=== PATIENT | female | born 1940 | race Caucasian/White ===

== ENCOUNTER 2017-04-03 09:35 | Emergency (ER) | payer MEDICARE ==
[~2017-04-03] VITALS: Ht 154.9 cm; Wt 41.3 kg
[~2017-04-03 09:35] MED LIST: ACETAMINOPHEN500 M3 PO; ADULT LOW DOSE81 MG PO; ALBUTEROL2.5 MG/NEB INH; ATENOLOL50 MG PO; CEFDINIR 300MG300 MG PO; DALIRESP500 MCG PO; DIGOXIN0.125 MG PO; DILTIAZEM HCL120 MG PO; ELIQUIS5 MG PO; GOOD NEIGHBOR600 MG PO; IPRATROPIUM BROM3 M2 IH; MELATIN1 TAB PO; PANTOPRAZOLE SO40 M1 PO; PAXIL10 MG PO; PERFOROMIS20 MCG/2 M IH; PROVENTIL0.09 MG/A1 IH; PULMICORT0.5 MG/2 M IN; ROBITUSSIN COU237 M1 PO; SENNA LAXATIVE8.6 MG PO; SPIRIVA HA1 PUFF/INH IH; VITAMIN B122500 MC1 PO; ZOFRAN4 MG PO
--- NOTE | 2017-04-03 09:52 | Emergency Room Report ---
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 EMS REPORTS THAT PT WAW IN SVT EN ROUTE TO ER AND CONVERTED TO SINUS TACH WITH VAGAL MANEUVERS Onset of symptoms date/time:04/03/17 or onset unknown for: Treatment Prior to Arrival: O2, IV, MONITOR, AND TRANSPORT. EMS REPORTS PT MONITORED IN SVT EN ROUTE TO [facility] AND CONVERTED WITH VAGAL MANEUVERS. LEASING AGENT Provided by:REGISTERED NURSE OBSTETRICS Sepsis Risk Assessment: Temp: 98.0 B/P: 140/90 MAP: 106 Pulse: 150 Resp: 24 Recent fever? N Clinical Suspician of Infection? N Mental Status: 1 - Regular (Normal Baseline) Sepsis Risk:Severe Sepsis Risk Have you (or family members/close friends) recently traveled outside the [place]? N If Yes, where/when: Have you had exposure to infectious disease within the past month? N TB? Other? Specify: Patient transferred from [place] due to elevated HR and SOB. She was discharged from this facililty 04/02/17 following treatment for pneumonia (Zithromax and cephalosporin); COPD, anemia (transfused); chronic afib (newly on Diltiazem per cardiology service, in addition to digoxin and Eliquis); cachexia; elevated troponin likely falsely positive due to COPD. She was given nebs this morning for tachypnea and transferred when noted to be tachycardic with Afib in the 170' s. She has not been given her morning dose of Diltiazem yet, but was given her Digoxin prior to transfer via EMS. During EMS transportation, she was given IVF and told to bear down/Valsalva, and she arrives with a rate in the 130's to 150' s. She is a confirmed DNR. ALLERGIES Coded Allergies: Penicillins (Mild, 03/27/17) aspirin (Mild, 03/27/17) Home Medications Active Scripts Pantoprazole Sodium 40 MG PO BID #60 TABS Ref 1 Prov: 04/02/17 DIGOXIN (Digox) 0.125 MG PO DAILY #30 TAB Ref 2 Prov: 04/02/17 CEFDINIR (Cefdinir) 300 MG PO BID #10 CAP Prov: 04/02/17 DILTIAZEM HCL (Diltiazem 12HR ER) 120 MG PO BID #60 C12 Ref 2 Prov: 04/02/17 Guaifenesin/Dextromethorphan (Robitussin Cough-Chest Dm Liq) 10 ML PO Q6HP PRN COUGH #240 ML Ref 2 Prov: 04/02/17 Reported Medications Senna Pod (Senna Laxative) 2 TAB PO QHS Tiotropium [place] (Spiriva) 2 PUFF IH DAILY Guaifenesin (Mucus ER) 600 MG PO BID Budesonide (Pulmicort) 0.5 MG IN BID Formoterol Fumarate (Perforomist) 20 MCG IH BID Acetaminophen (Acetaminophen Extra Strength) 500 MG PO PRN PRN PAIN OR FEVER Aspirin (Adult Low Dose Aspirin EC) 81 MG PO DAILY Cyanocobalamin (Vitamin B-12) (Vitamin B12) 1,000 MCG PO DAILY Roflumilast (Daliresp) 500 MCG PO DAILY Apixaban (Eliquis) 5 MG PO BID MELATONIN (Melatin) 1 TAB PO QHS PAROXETINE HCL (Paxil) 10 MG PO DAILY ALBUTEROL (Proventil Hfa Inhaler) 1-2 PUFF IH Q4-6H PRN ONDANSETRON HCL (Zofran 4MG Tab) 4 MG PO Q6HP PRN NAUSEA AND VOMITING ALBUTEROL (Albuterol 0.083% Neb) 2.5 MG INH QID Discontinued Reported Medications ATENOLOL (Atenolol 50MG) 100 MG PO DAILY IPRATROPIUM/ALBUTEROL SULFATE (Iprat-Albut 0.5-3(2.5) MG/3 Ml) 3 ML IH QIDP PRN COPD History Medical History General CAD? Yes Angina: Yes VA: Yes Hypertension? Yes Hyperlipidemia? No CHF? No DVT? No PE? No COPD? Yes Asthma? No Anemia? No GERD? No Gastric ulcers? No GI Bleed? No Hernia? No Thyroid Problems? No Hypothyroidism? No CVA? No Seizures? No Diabetes? No Renal Insuffiency? No End Stage Renal Disease? No UTI? No Stones? No BPH? No GB Disease: No Nephritic Syndrome? No Asplenia? No Hepatitis? No Sickle Cell Disease? No Arthritis? No Migraines? No Cataracts? No Glaucoma? No MRSA? No HIV? No TB? No Anxiety? Yes Depression? No Cancer? No More? No Additional hx: 1. Chronic atrial fib Immunization Hx DT/Tetanus Unknown Flu Refused Pneumonia Never Had Surgical Hx Previous Surgery?Y Cath w/Stent Family History Family Hx Diabetes No CAD Yes Hypertension Yes Hyperlipidemia No Cancer No TB No Social History Smoking Hx Smoker: Former Smoker Tobacco: No Packs/day 1 1/2 - 2 Packs Alcohol Alcohol: No Review of Systems All Other Systems Reviewed and Negative Constitutional see HPI (cachexia) Respiratory see HPI (COPD on O2;recent pneumonia) Cardiovascular see HPI, denies chest pain (hx chronic Afib; hx elev trop) Physical Exam Vital Signs Vital Signs Date Time Temp Pulse Resp B/P Pulse O2 O2 Flow FiO2 Ox Delivery Rate 04/03 1103 107 18 142/73 100 04/03 1025 96 20 154/77 100 04/03 1025 24 98 04/03 1023 97 24 157/77 98 04/03 0938 98.0 150 24 140/90 89 General Appearance normal appearance, WD/WN, mild distress Eye Exam - bilateral eye normal exam, bilateral eye PERRL, bilateral eye EOMI Neck normal inspection (trachea midline) Respiratory Status Yes: trachea midline, chest symmetrical, non tender chest. No: respiratory distress, tender on palpation, use of accessory muscles, pain on inspiration, pain on expiration, productive cough, non productive cough (somewhat tachypneic) . Lung Sounds bilateral: normal breath sounds, lungs clear, decreased breath sounds (c/w hx COPD; somewhat elev RR). Cardiovascular regular rate/rhythm, no peripheral edema, no gallop, no JVD, no murmur, no rub (irr irr Afib on monitor 150's) Peripheral Pulses Pulses normal Yes (irr irr; full) Gastrointestinal normal bowel sounds, normal exam, non tender, soft, no organomegaly, no pulsatile mass, no guarding, no rebound Extremities non-tender, normal range of motion, normal inspection, normal capillary refill, no calf tenderness, no pedal edema Strength 4 Upper Ext (L), 4 Upper Ext (R), 4 Lower Ext (L), 4 Lower Ext (R) Neurologic alert, normal exam, no motor/sensory deficits, oriented x 3 (speech clear and fluent;alert) Glascow Coma Scale Glascow Coma Scale Response Value EYE response: 4 Spontaneously 4 MOTOR response: 6 OBEYS 6 VERBAL response: 5 Oriented & Converses 5 Total 15 Skin intact, normal color, warm/dry, pallor Lymphatic no adenopathy Medical Decision Making LABS/Meds/Orders Pt receiving controlled substance in ED? No Results/Orders Laboratory Tests 04/03/17 0950: Lactic Acid 1.4 04/03/17 0950: Sodium 133 L, Potassium 3.7, Chloride 95 L, Carbon Dioxide 37 H, BUN 18, Creatinine 0.8, Estimated Creat Clear 38 L, Estimated GFR (MDRD) 69, Glucose 172 H, Calcium 9.0, Total Bilirubin 1.2 H, AST 17, ALT 26, Alkaline Phosphatase 94, Creatine Kinase 12 L, CK-MB (CK-2) Rel Index 5.8 H, CK and CKMB Interp 0.7, Troponin I 0.04, Total Protein 6.0 L, Albumin 2.8 L, Globulin 3.2, Albumin/Globulin Ratio 0.9 L, WBC 15.6 H, RBC 4.48, Hgb 13.4, Hct 42.0, MCV 93.8, RDW 15.4, Plt Count 113 L, MPV 9.5, Gran % 81.7 H, Gran # 12.8 H, Total Counted 100, Lymphocytes % 8.7 L, Monocytes % 9.3, Eosinophils % 0.1, Basophils % 0.2, Neutrophils 80 H, Band Neutrophils 2, Lymphocytes (Manual) 7 L, Lymphocytes # 1.4, Monocytes (Manual) 11 H, Monocytes # 1.5 H, Eosinophils # 0.0, Basophils # 0.0, Platelet Estimate SLIGHT DECREASE, PUBS MCHC 31.9, MCH 30.0, Digoxin 0.80 L Current Medication Orders Sig/Dylan Start time Last Medication Dose Route Stop Time Status Admin Albuterol/Ipratropium 3 ML ONCE ONE 04/03 1030 DC 04/03 INH 04/03 1031 1035 Albuterol/Ipratropium 0 .STK-MED ONE 04/03 1030 DC INH Sodium Chloride 10 ML PRN PRN 04/03 1015 AC IV 04/04 1002 Diltiazem HCl 120 MG ONCE ONE 04/03 1000 DC 04/03 PO 04/03 1001 0957 Ondansetron HCl 4 MG 04/03 1000 CAN IV Ondansetron HCl 4 MG ONCE ONE 04/03 1000 DC 04/03 IV 04/03 1001 1000 Diltiazem HCl 0 .STK-MED ONE 04/03 0954 DC PO Methylprednisolone 125 MG ONCE ONE 04/03 0945 DC 04/03 Sodium Succinate IV 04/03 0946 0955 Sodium Chloride 1,000 ML .Q1H1M 04/03 0945 DC 04/03 IV 04/03 1045 0955 Sodium Chloride 10 ML PRN PRN 04/03 945 AC IV 04/04 0938 Sodium Chloride 1,000 ML .STK-MED ONE 04/03 0944 DC IV Methylprednisolone 0 .STK-MED ONE 04/03 0943 DC Sodium Succinate .ROUTE Ondansetron HCl 0 .STK-MED ONE 04/03 09 DC .ROUTE Orders Procedure Date/time Status OP COURTSEY MEAL 04/03 1102 Active RT REQUEST DUONEB 04/03 1022 Active IV SALINE LOCK 04/03 1002 Active DIFFERENTIAL-WBC 04/03 0950 Complete 12 LEAD EKG-RADHA (INITIAL) 04/03 0940 Active ELECTROCARDIOGRAM REQUEST 04/03 0940 Active CHEST-PORTABLE 04/03 0940 Active LACTIC ACID 04/03 0940 Complete DIGOXIN 04/03 09 Complete CBC WITH AUTO DIFF 04/03 09 Complete CARDIAC ENZYMES 04/03 09 Complete CHEM 12 PROFILE 04/03 09 Complete CM/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 XRAY/CT/US XRAY/CT/US XRAY chest XR interpretation by reviewed by me Xray Results abnormal, improvement of bibasilar atelectasis seen last week Progress ED Progress Notes 1 Date 04/03/17 Time 1003 Comment HR 103-1113 on monitor; Stach and intermittently Afib. Somewhat tachypneic with scattered wheezing; responding well to AM dose of Diltiazem as well as IVF. Will administer duoneb to treat wheezing now that HR under better control. ED Progress Notes 2 Date 04/03/17 Time 1033 Comment Stach 112 s/p Diltiazem and IVF, and now receiving duoneb. ED Progress Notes 3 Date 04/03/17 Time 1129 Comment Resting comfortably, ate breakfast, stable s/p nebs and seroids, HR low 100's s/ p nebs. Departure Departure Time of Disposition 1122 Disposition DC Home or Self Care(routine) Clinical Impression Primary Impression: SOB (shortness of breath) Secondary Impressions: Atrial fibrillation with tachycardic ventricular rate, COPD exacerbation Condition STABLE Referrals Ryann Mckeon MD (PCP/Family) Patient Instructions Diltiazem Additional Instructions Initiate Diltiazem as per the developer analyst's recommendations; patient was dosed in the ED and responded well. Digoxin level was slightly low, perhaps due to dosing, but recommend recheck level at PCP's discretion. Recommend continuation of prednisone taper as tolerated with Rx Medrol written; patient may need to be premedicated with Zofran to tolerate the prednisone. Continue nebs. See Dr. Mckeon for follow up in two to five days for recheck. Discharge Counseling Counseled pt/family regarding diagnosis, test results, medications/RX, home care, follow up needs Prescriptions Current Visit Scripts Methylprednisolone (Medrol Dose Jairo) 4 MG PO UD #1 JAIRO TAKE DIRECTED ON PACKAGING Ondansetron (Zofran 4MG Odt) 4 MG PO Q6HP PRN NAUSEA AND VOMITING #6 ODT ED Critical Care Critical Care No at 1123
[2017-04-03 10:11] LABS: HEMOGLOBIN 13.4 g/dL (12.2-16.2); LYMPH # 1.4 K/mm3 (0.7-4.5); LYMPH % 8.7 % (10-50.0)
--- OUTSIDE RECORDS SUMMARY | 2017-04-03 10:25 | External Medical Summary Rpt | CCD ---
Author Author , ERON Organization ERON Address Unknown Phone [email or web address] Purpose Continuity of Care Document - 06-27-2016 through 2016 Results Labs Lab Lab Date Result Refere Interp Status Commen Order Detail nces retati t Range on CBC w auto diff (04-02-2017 06:45) Blood = 8.8 4.8-10. complet leukocy 017 K/MM3 8 ed devendra 06:45 count (number /volume ) Automat = 15.5 11.5-17 complet ed 017 % .5 ed erythro 06:45 cyte distrib ution width Red = 4.26 4.2-5.4 complet blood 017 M/mm3 ed cell 06:45 count Blood = 92 142-424 complet platele 017 K/mm3 ed t count 06:45 Automat = 9.3 7.4-10. complet ed 017 fl 4 ed blood 06:45 platele t mean volume shari [place] % = 11.1 1.7-9.3 complet 017 % ed 06:45 Absolut = 1.0 0.1-1.0 complet e 017 K/mm3 ed monocyt 06:45 e count Automat = 94.7 82.2-97 complet ed 017 fl .8 ed erythro 06:45 cyte mean corpusc ular v Automat = 31.4 31.8-35 complet ed 017 g/dl .4 ed erythro 06:45 cyte mean corpusc ular h Mean = 29.8 27-31.2 complet corpusc 017 pg ed ular 06:45 hemoglo bin (MCH) determ Lymphoc = 10.8 10-50.0 complet yte 017 % ed count, 06:45 blood, automat ed Absolut = 1.0 0.7-4.5 complet e 017 K/mm3 ed lymphoc 06:45 yte count Blood = 12.8 12.2-16 complet hemoglo 017 g/dL .2 ed bin 06:45 measure ment (mass/v olum Blood = 40.3 37.0-47 complet hematoc 017 % .0 ed rit 06:45 (volume fractio n) Granulo = 77.4 37.0-80 complet cyte 017 % .0 ed percent 06:45 age Blood = 6.8 1.8-7.8 complet granulo 017 K/mm3 ed cytes 06:45 automat ed count (numb Automat = 0.5 % 0.1-12. complet ed 017 0 ed blood 06:45 eosinop hils/10 0 leukocy t Automat = 0.0 0.0-0.4 complet ed 017 K/mm3 ed blood 06:45 eosinop hil count Automat = 0.0 0-0.2 complet ed 017 K/MM3 ed blood 06:45 basophi l count (count/ vo Baso % = 0.2 % 0.1-2.0 complet 017 ed 06:45 Differential panel, method unspecified - (03-31-2017 06:20) Blood = 100 complet total 017 #CELLS ed cell 06:20 count Neutrop = 82 % 42-76 complet hil 017 ed count 06:20 Platele SLIGHT complet t 017 DECREAS ed estimat 06:20 E e SLIGHT DECREAS E L Monocyt = 10 % 2-9 complet e % 017 ed 06:20 LYMPH 5 % 10-50 complet 017 ed 06:20 Automat = 3 % 0-8 complet ed 017 ed blood 06:20 band neutrop hil percent a CBC w auto diff (03-31-2017 06:20) Automat = 15.8 11.5-17 complet ed 017 % .5 ed erythro 06:20 cyte distrib ution width Blood = 16.0 4.8-10. complet leukocy 017 K/MM3 8 ed devendra 06:20 count (number /volume ) Red = 4.75 4.2-5.4 complet blood 017 M/mm3 ed cell 06:20 count Blood = 132 142-424 complet platele 017 K/mm3 ed t count 06:20 Automat = 9.4 7.4-10. complet ed 017 fl 4 ed blood 06:20 platele t mean volume shari [place] % = 7.3 % 1.7-9.3 complet 017 ed 06:20 Absolut = 1.2 0.1-1.0 complet e 017 K/mm3 ed monocyt 06:20 e count Automat = 94.3 82.2-97 complet ed 017 fl .8 ed erythro 06:20 cyte mean corpusc ular v Automat = 32.5 31.8-35 complet ed 017 g/dl .4 ed erythro 06:20 cyte mean corpusc ular h Mean = 30.6 27-31.2 complet corpusc 017 pg ed ular 06:20 hemoglo bin (MCH) determ Lymphoc = 6.9 % 10-50.0 complet yte 017 ed count, 06:20 blood, automat ed Absolut = 1.1 0.7-4.5 complet e 017 K/mm3 ed lymphoc 06:20 yte count Blood = 14.5 12.2-16 complet hemoglo 017 g/dL .2 ed bin 06:20 measure ment (mass/v olum Blood = 44.8 37.0-47 complet hematoc 017 % .0 ed rit 06:20 (volume fractio n) Granulo = 85.3 37.0-80 complet cyte 017 % .0 ed percent 06:20 age Blood = 13.6 1.8-7.8 complet granulo 017 K/mm3 ed cytes 06:20 automat ed count (numb Automat = 0.4 % 0.1-12. complet ed 017 0 ed blood 06:20 eosinop hils/10 0 leukocy t Automat = 0.1 0.0-0.4 complet ed 017 K/mm3 ed blood 06:20 eosinop hil count Baso % = 0.1 % 0.1-2.0 complet 017 ed 06:20 Automat = 0.0 0-0.2 complet ed 017 K/MM3 ed blood 06:20 basophi l count (count/ vo Comprehensive metabolic panel (03-31-2017 06:20) Protein = 6.7 6.4-8.2 complet total 017 gm/dL ed ser/husam 06:20 s ALT = 26 12-78 complet (SGPT) 017 U/L ed ser/husam 06:20 s Serum = 18 15-37 complet or 017 U/L ed plasma 06:20 asparta te aminotr ansfera Serum = 137 136-145 complet sodium 017 mmoL/L ed measure 06:20 ment Serum = 4.6 3.5-5.1 complet potassi 017 mmoL/L ed um 06:20 measure ment Serum = 126 74-106 complet or 017 mg/dL ed plasma 06:20 glucose measure ment (mas Serum = 3.4 1.3-3.2 complet globuli 017 gm/dL ed n 06:20 measure ment (mass/v olume) Estimat = 69 59- complet ed 017 ML/MIN ed glomeru 06:20 lar filtrat ion rate (GF Comment: REFERENCE RANGE: >60 ML/MIN/1.73 SQUARE METERS Comment: If this patient is -Cymro, then multiply the Comment: result by 1.210. Estimat = 40 50-200 complet ion of 017 ML/MIN ed creatin 06:20 ine renal clearan ce Serum = 0.8 0.55-1. complet or 017 mg/dL 02 ed plasma 06:20 creatin ine measure ment ( Carbon = 39 21.0-32 complet dioxide 017 mmoL/L .0 ed 06:20 measure ment Serum = 94 98-107 complet or 017 mmoL/L ed plasma 06:20 chlorid e measure ment (mo Serum = 9.6 8.5-10. complet or 017 mg/dL 1 ed plasma 06:20 calcium measure ment (mas Serum = 23 7-18 complet or 017 mg/dL ed plasma 06:20 urea nitroge n measure men Serum = 1.2 0.2-1.0 complet or 017 mg/dL ed plasma 06:20 total bilirub in measure m Serum = 113 46-116 complet or 017 U/L ed plasma 06:20 alkalin e phospha tase shari Serum = 3.3 3.4-5.0 complet or 017 gm/dL ed plasma 06:20 albumin measure ment (mas Serum = 1.0 1.1-1.8 complet or 017 ed plasma 06:20 albumin /globul in mass ra Cardiac enzymes (03-30-2017 06:03) Serum = 0.11 0.00-0. complet or 017 ng/mL 06 ed plasma 06:03 troponi n i.cardi ac measu Comment: 0.04 - 0.49 IS AN INDETERMINANT ZONE Comment: And can be consistent with the following diseases: Comment: Comment: Trauma Critically ill patients Fuentes >30% TBSA Comment: CHF Hypothyroidism Amyloidosis Comment: Hypertension Myocarditis Sepsis Comment: Hypotension Rhabdomyolysis Vital exhaust. Comment: Postop surgery Pulmonary embolism CVA Comment: Renal failure Acute neurological disease Atrial fib. Serum = 31 26-192 complet or 017 U/L ed plasma 06:03 creatin e kinase measure m Serum = 3.2 0.0-3.6 complet or 017 ng/mL ed plasma 06:03 creatin e kinase MB measu Serum = 10.3 0-4.0 complet or 017 U/L ed plasma 06:03 creatin e kinase MB (CK-M Basic metabolic panel (03-30-2017 06:03) Serum 03-30-2 = 9.3 8.5-10. complet or 017 mg/dL 1 ed plasma 06:03 calcium measure ment (mas Serum = 135 136-145 complet sodium 017 mmoL/L ed measure 06:03 ment Serum = 4.4 3.5-5.1 complet potassi 017 mmoL/L ed um 06:03 measure ment Serum = 130 74-106 complet or 017 mg/dL ed plasma 06:03 glucose measure ment (mas Estimat = 69 59- complet ed 017 ML/MIN ed glomeru 06:03 lar filtrat ion rate (GF Comment: REFERENCE RANGE: >60 ML/MIN/1.73 SQUARE METERS Comment: If this patient is -Cymro, then multiply the Comment: result by 1.210. Estimat = 40 50-200 complet ion of 017 ML/MIN ed creatin 06:03 ine renal clearan ce Serum = 0.8 0.55-1. complet or 017 mg/dL 02 ed plasma 06:03 creatin ine measure ment ( Carbon = 34 21.0-32 complet dioxide 017 mmoL/L .0 ed 06:03 measure ment Serum = 99 98-107 complet or 017 mmoL/L ed plasma 06:03 chlorid e measure ment (mo Serum = 27 7-18 complet or 017 mg/dL ed plasma 06:03 urea nitroge n measure men Differential panel, method unspecified - (03-30-2017 06:03) Blood = 100 complet total 017 #CELLS ed cell 06:03 count Neutrop = 85 % 42-76 complet hil 017 ed count 06:03 Platele SLIGHT complet t 017 DECREAS ed estimat 06:03 E e SLIGHT DECREAS E L Monocyt = 8 % 2-9 complet e % 017 ed 06:03 LYMPH 6 % 10-50 complet 017 ed 06:03 Blood LARGE complet manual 017 PLT ed differe 06:03 PRESENT ntial comment interp Automat = 1 % 0-8 complet ed 017 ed blood 06:03 band neutrop hil percent a CBC w auto diff (03-30-2017 06:03) Blood = 17.8 4.8-10. complet leukocy 017 K/MM3 8 ed devendra 06:03 count (number /volume ) Automat = 16.2 11.5-17 complet ed 017 % .5 ed erythro 06:03 cyte distrib ution width Red = 4.01 4.2-5.4 complet blood 017 M/mm3 ed cell 06:03 count Blood = 113 142-424 complet platele 017 K/mm3 ed t count 06:03 Automat = 10.1 7.4-10. complet ed 017 fl 4 ed blood 06:03 platele t mean volume shari [place] % = 6.9 % 1.7-9.3 complet 017 ed 06:03 Absolut = 1.2 0.1-1.0 complet e 017 K/mm3 ed monocyt 06:03 e count Automat = 94.8 82.2-97 complet ed 017 fl .8 ed erythro 06:03 cyte mean corpusc ular v Automat = 31.8 31.8-35 complet ed 017 g/dl .4 ed erythro 06:03 cyte mean corpusc ular h Mean = 30.1 27-31.2 complet corpusc 017 pg ed ular 06:03 hemoglo bin (MCH) determ Lymphoc = 5.5 % 10-50.0 complet yte 017 ed count, 06:03 blood, automat ed Absolut = 1.0 0.7-4.5 complet e 017 K/mm3 ed lymphoc 06:03 yte count Blood = 12.1 12.2-16 complet hemoglo 017 g/dL .2 ed bin 06:03 measure ment (mass/v olum Blood = 38.0 37.0-47 complet hematoc 017 % .0 ed rit 06:03 (volume fractio n) Granulo = 87.2 37.0-80 complet cyte 017 % .0 ed percent 06:03 age Blood = 15.6 1.8-7.8 complet granulo 017 K/mm3 ed cytes 06:03 automat ed count (numb Automat = 0.2 % 0.1-12. complet ed 017 0 ed blood 06:03 eosinop hils/10 0 leukocy t Automat = 0.0 0.0-0.4 complet ed 017 K/mm3 ed blood 06:03 eosinop hil count Baso % = 0.0 % 0.1-2.0 complet 017 ed 06:03 Automat = 0.0 0-0.2 complet ed 017 K/MM3 ed blood 06:03 basophi l count (count/ vo Whole blood hemoglobin and hematocrit pa (03-28-2017 16:30) Comment: COMMENTS TO MATERIAL ATTENDANT: 1 HR POST TRANSFUSION Blood = 11.3 12.2-16 complet hemoglo 017 g/dL .2 ed bin 16:30 measure ment (mass/v olum Blood = 35.4 37.0-47 complet hematoc 017 % .0 ed rit 16:30 (volume fractio n) Leukocyte reduction of packed red blood (03-28-2017 14:00) Leukocy BLOOD complet te 017 UNIT ed reducti 14:00 RELEASE on of BLOOD packed UNIT red RELEASE blood L Comment: BLOOD UNIT # : [id number] RELEASED 03/28/17 1400 Comment: Khurram Guy Comment: Comment: O POSITIVE Leukocyte reduction of packed red blood (03-28-2017 11:20) Leukocy BLOOD complet te 017 UNIT ed reducti 11:20 RELEASE on of BLOOD packed UNIT red RELEASE blood L Comment: Comment: BLOOD UNIT # : [id number] RELEASED 03/28/17 Comment: [employer] Comment: O POS CBC w auto diff (03-28-2017 05:45) Automat = 11.1 7.4-10. complet ed 017 fl 4 ed blood 05:45 platele t mean volume shari [place] % = 7.3 % 1.7-9.3 complet 017 ed 05:45 Absolut = 0.8 0.1-1.0 complet e 017 K/mm3 ed monocyt 05:45 e count Automat = 94.9 82.2-97 complet ed 017 fl .8 ed erythro 05:45 cyte mean corpusc ular v Automat = 30.8 31.8-35 complet ed 017 g/dl .4 ed erythro 05:45 cyte mean corpusc ular h Mean = 29.2 27-31.2 complet corpusc 017 pg ed ular 05:45 hemoglo bin (MCH) determ Lymphoc = 12.1 10-50.0 complet yte 017 % ed count, 05:45 blood, automat ed Absolut = 1.3 0.7-4.5 complet e 017 K/mm3 ed lymphoc 05:45 yte count Blood = 7.9 12.2-16 complet hemoglo 017 g/dL .2 ed bin 05:45 measure ment (mass/v olum Comment: CRITICAL RESULTS Comment: RESULTS CALLED TO: PRISCAWilliamsJONYPRETTY 03/28/17 0627 [employer] Blood = 25.7 37.0-47 complet hematoc 017 % .0 ed rit 05:45 (volume fractio n) Granulo = 80.3 37.0-80 complet cyte 017 % .0 ed percent 05:45 age Blood = 8.9 1.8-7.8 complet granulo 017 K/mm3 ed cytes 05:45 automat ed count (numb Automat = 0.2 % 0.1-12. complet ed 017 0 ed blood 05:45 eosinop hils/10 0 leukocy t Automat = 0.0 0.0-0.4 complet ed 017 K/mm3 ed blood 05:45 eosinop hil count Baso % = 0.1 % 0.1-2.0 complet 017 ed 05:45 Automat = 0.0 0-0.2 complet ed 017 K/MM3 ed blood 05:45 basophi l count (count/ vo Blood = 11.1 4.8-10. complet leukocy 017 K/MM3 8 ed devendra 05:45 count (number /volume ) Automat = 17.0 11.5-17 complet ed 017 % .5 ed erythro 05:45 cyte distrib ution width Red = 2.71 4.2-5.4 complet blood 017 M/mm3 ed cell 05:45 count Blood = 80 142-424 complet platele 017 K/mm3 ed t count 05:45 Basic metabolic panel (03-28-2017 05:45) Serum = 136 136-145 complet sodium 017 mmoL/L ed measure 05:45 ment Serum = 4.4 3.5-5.1 complet potassi 017 mmoL/L ed um 05:45 measure ment Serum = 176 74-106 complet or 017 mg/dL ed plasma 05:45 glucose measure ment (mas Estimat = 81 59- complet ed 017 ML/MIN ed glomeru 05:45 lar filtrat ion rate (GF Comment: REFERENCE RANGE: >60 ML/MIN/1.73 SQUARE METERS Comment: If this patient is -Cymro, then multiply the Comment: result by 1.210. Estimat = 46 50-200 complet ion of 017 ML/MIN ed creatin 05:45 ine renal clearan ce Serum = 0.7 0.55-1. complet or 017 mg/dL 02 ed plasma 05:45 creatin ine measure ment ( Carbon = 31 21.0-32 complet dioxide 017 mmoL/L .0 ed 05:45 measure ment Serum = 101 98-107 complet or 017 mmoL/L ed plasma 05:45 chlorid e measure ment (mo Serum = 9.0 8.5-10. complet or 017 mg/dL 1 ed plasma 05:45 calcium measure ment (mas Serum = 26 7-18 complet or 017 mg/dL ed plasma 05:45 urea nitroge n measure men Cardiac enzymes (03-27-2017 11:00) Serum = 0.41 0.00-0. complet or 017 ng/mL 06 ed plasma 11:00 troponi n i.cardi ac measu Comment: 0.04 - 0.49 IS AN INDETERMINANT ZONE Comment: And can be consistent with the following diseases: Comment: Comment: Trauma Critically ill patients Fuentes >30% TBSA Comment: CHF Hypothyroidism Amyloidosis Comment: Hypertension Myocarditis Sepsis Comment: Hypotension Rhabdomyolysis Vital exhaust. Comment: Postop surgery Pulmonary embolism CVA Comment: Renal failure Acute neurological disease Atrial fib. Serum 10-13-2 = 29 26-192 complet or 017 U/L ed plasma 11:00 creatin e kinase measure m Serum 10--2 = 2.0 0.0-3.6 complet or 017 ng/mL ed plasma 11:00 creatin e kinase MB measu Serum 10-2 = 6.9 0-4.0 complet or 017 U/L ed plasma 11:00 creatin e kinase MB (CK-M Serum or plasma thyroid stimulating horm (03-27-2017 09:10) Serum 10-13-2 = 0.90 0.358-3 complet or 017 uIU/ml .740 ed plasma 09:10 thyroid stimula ting horm Vitamin B12 ser/plas (03-27-2017 09:10) Vitamin 10--2 = 364 211-946 complet B12 017 pg/mL ed ser/husam 09:10 s Comment: Performed at: [facility] Comment: [id number], [place] [id number] Comment: Order Dispatcher: Shahriar Mena PhD, Phone: [phone] Cardiac enzymes (03-27-2017 07:55) Serum 10-2 = 0.12 0.00-0. complet or 017 ng/mL 06 ed plasma 07:55 troponi n i.cardi ac measu Comment: 0.04 - 0.49 IS AN INDETERMINANT ZONE Comment: And can be consistent with the following diseases: Comment: Comment: Trauma Critically ill patients Fuentes >30% TBSA Comment: CHF Hypothyroidism Amyloidosis Comment: Hypertension Myocarditis Sepsis Comment: Hypotension Rhabdomyolysis Vital exhaust. Comment: Postop surgery Pulmonary embolism CVA Comment: Renal failure Acute neurological disease Atrial fib. Serum 10-13-2 = 15 26-192 complet or 017 U/L ed plasma 07:55 creatin e kinase measure m Serum 10-2 = 1.1 0.0-3.6 complet or 017 ng/mL ed plasma 07:55 creatin e kinase MB measu Serum 03-27-2 = 7.3 0-4.0 complet or 017 U/L ed plasma 07:55 creatin e kinase MB (CK-M Crossmatch (03-27-2017 05:35) Comment: Hold? N Comment: Transfuse now? 2 UNITS NOW [employer] COMPAT complet te spin 017 COMPAT ed 05:35 L crossma tch Interpr COMPAT complet etation 017 COMPAT ed of 05:35 L major crossma tch resul Blood type and crossmatch (03-27-2017 05:35) Blood O O L complet ABO 017 ed group 05:35 typing Rh POSITIV complet blood 017 E ed group 05:35 POSITIV typing E L Materna NEGATIV NEGATIV complet l 017 E E ed antibod 05:35 NEGATIV y E L screen Blood lactic acid measurement (moles/vol (03-27-2017 03:41) Blood = 1.6 0.4-2.0 complet lactic 017 mmol/L ed acid 03:41 measure ment (moles/ vol Arterial blood gas (03-27-2017 03:25) Arteria = 6.6 -2.4-+2 complet l blood 017 MMOL/L .3 ed base 03:25 excess determi nation Arteria = 31.3 23-27 complet l blood 017 MMOL/L ed carbon 03:25 dioxide , total shari Arteria = 98.2 90-100 complet l blood 017 % ed oxygen 03:25 saturat ion calcula Arteria = 112.7 80-100 complet l whole 017 MMHG ed blood 03:25 PO2 at POC Arteria = 7.49 7.35-7. complet l blood 017 MMOL/L 45 ed pH 03:25 measure ment Arteria = 40.7 35.0-45 complet l blood 017 MMHG .0 ed 03:25 partial pressur e of carbo Arteria = 32% complet l blood 017 ed total 03:25 oxygen content oneyda Arteria = 30.0 22.0-26 complet l blood 017 MMOL/L .0 ed 03:25 bicarbo flor measure ment ( Chidi's ACCEPTA complet test 017 BLE ed before 03:25 ACCEPTA arteria BLE L l blood gas Comprehensive metabolic panel (03-27-2017 03:00) ALT = 10 12-78 complet (SGPT) 017 U/L ed ser/husam 03:00 s Serum = 11 15-37 complet or 017 U/L ed plasma 03:00 asparta te aminotr ansfera Serum = 134 136-145 complet sodium 017 mmoL/L ed measure 03:00 ment Serum = 3.4 3.5-5.1 complet potassi 017 mmoL/L ed um 03:00 measure ment Serum = 140 74-106 complet or 017 mg/dL ed plasma 03:00 glucose measure ment (mas Serum = 3.3 1.3-3.2 complet globuli 017 gm/dL ed n 03:00 measure ment (mass/v olume) Estimat = 77 59- complet ed 017 ML/MIN ed glomeru 03:00 lar filtrat ion rate (GF Comment: REFERENCE RANGE: >60 ML/MIN/1.73 SQUARE METERS Comment: If this patient is -Cymro, then multiply the Comment: result by 1.210. Estimat = 31 50-200 complet ion of 017 ML/MIN ed creatin 03:00 ine renal clearan ce Serum = 0.7 0.55-1. complet or 017 mg/dL 02 ed plasma 03:00 creatin ine measure ment ( Carbon = 32 21.0-32 complet dioxide 017 mmoL/L .0 ed 03:00 measure ment Serum = 97 98-107 complet or 017 mmoL/L ed plasma 03:00 chlorid e measure ment (mo Serum = 9.0 8.5-10. complet or 017 mg/dL 1 ed plasma 03:00 calcium measure ment (mas Serum = 15 7-18 complet or 017 mg/dL ed plasma 03:00 urea nitroge n measure men Serum = 0.9 0.2-1.0 complet or 017 mg/dL ed plasma 03:00 total bilirub in measure m Serum = 79 46-116 complet or 017 U/L ed plasma 03:00 alkalin e phospha tase shari Serum = 2.9 3.4-5.0 complet or 017 gm/dL ed plasma 03:00 albumin measure ment (mas Serum = 0.9 1.1-1.8 complet or 017 ed plasma 03:00 albumin /globul in mass ra Protein = 6.2 6.4-8.2 complet total 017 gm/dL ed ser/husam 03:00 s CBC w auto diff (03-27-2017 03:00) Automat = 0.0 0.0-0.4 complet ed 017 K/mm3 ed blood 03:00 eosinop hil count Automat = 0.1 0-0.2 complet ed 017 K/MM3 ed blood 03:00 basophi l count (count/ vo Blood = 9.1 4.8-10. complet leukocy 017 K/MM3 8 ed devendra 03:00 count (number /volume ) Automat = 16.5 11.5-17 complet ed 017 % .5 ed erythro 03:00 cyte distrib ution width Red = 2.94 4.2-5.4 complet blood 017 M/mm3 ed cell 03:00 count Blood = 93 142-424 complet platele 017 K/mm3 ed t count 03:00 Automat = 10.6 7.4-10. complet ed 017 fl 4 ed blood 03:00 platele t mean volume shari [place] % = 14.2 1.7-9.3 complet 017 % ed 03:00 Absolut = 1.3 0.1-1.0 complet e 017 K/mm3 ed monocyt 03:00 e count Automat = 92.1 82.2-97 complet ed 017 fl .8 ed erythro 03:00 cyte mean corpusc ular v Automat = 31.9 31.8-35 complet ed 017 g/dl .4 ed erythro 03:00 cyte mean corpusc ular h Mean = 29.4 27-31.2 complet corpusc 017 pg ed ular 03:00 hemoglo bin (MCH) determ Lymphoc = 21.9 10-50.0 complet yte 017 % ed count, 03:00 blood, automat ed Absolut = 2.0 0.7-4.5 complet e 017 K/mm3 ed lymphoc 03:00 yte count Blood = 8.6 12.2-16 complet hemoglo 017 g/dL .2 ed bin 03:00 measure ment (mass/v olum Blood = 27.0 37.0-47 complet hematoc 017 % .0 ed rit 03:00 (volume fractio n) Granulo = 63.0 37.0-80 complet cyte 017 % .0 ed percent 03:00 age Blood = 5.7 1.8-7.8 complet granulo 017 K/mm3 ed cytes 03:00 automat ed count (numb Automat = 0.2 % 0.1-12. complet ed 017 0 ed blood 03:00 eosinop hils/10 0 leukocy t Baso % = 0.7 % 0.1-2.0 complet 017 ed 03:00 Cardiac enzymes (03-27-2017 03:00) Serum < 0.02 0.00-0. complet or 017 ng/mL 06 ed plasma 03:00 troponi n i.cardi ac measu Serum = 14 26-192 complet or 017 U/L ed plasma 03:00 creatin e kinase measure m Serum = 0.6 0.0-3.6 complet or 017 ng/mL ed plasma 03:00 creatin e kinase MB measu Serum = 4.3 0-4.0 complet or 017 U/L ed plasma 03:00 creatin e kinase MB (CK-M Brain natriuretic peptide (03-27-2017 03:00) Brain = 289 0-100 complet natriur 017 pg/mL ed etic 03:00 peptide Bas Metab 2000 Pnl SerPl (09-07-2016 05:42) Anion 8.0 3.0-11. complet Gap3 017 mmol/L 0 ed SerPl-s 05:42 Cnc BUN/Cre 36.7 7.0-25. complet at 017 0 ed SerPl 05:42 GFR/BSA 97 >60 complet .pred 017 mL/min/ ed SerPl 05:42 1.73 MDRD-Ar VRat Calcium 9.5 8.7-10. complet 017 mg/dL 4 ed XXX-sCn 05:42 c CO2 32.0 20.0-31 complet SerPl-s 017 mmol/L .0 ed Cnc 05:42 Chlorid 92 99-109 complet e 017 mmol/L ed SerPl-s 05:42 Cnc Potassi 4.0 3.5-5.5 complet um 017 mmol/L ed Bld-sCn 05:42 c Sodium 132 132-146 complet Bld-sCn 017 mmol/L ed c 05:42 Creat 0.60 0.60-1. complet Bld-mCn 017 mg/dL 30 ed c 05:42 BUN 22 9-23 complet Bld-mCn 017 mg/dL ed c 05:42 Glucose 110 70-100 complet 017 mg/dL ed Bld-mCn 05:42 c Bas Metab 2000 Pnl SerPl (09-05-2016 05:07) Anion 7.0 3.0-11. complet Gap3 017 mmol/L 0 ed SerPl-s 05:07 Cnc BUN/Cre 30.0 7.0-25. complet at 017 0 ed SerPl 05:07 GFR/BSA 70 >60 complet .pred 017 mL/min/ ed SerPl 05:07 1.73 MDRD-Ar VRat Calcium 8.7 8.7-10. complet 017 mg/dL 4 ed XXX-sCn 05:07 c CO2 33.0 20.0-31 complet SerPl-s 017 mmol/L .0 ed Cnc 05:07 Chlorid 90 99-109 complet e 017 mmol/L ed SerPl-s 05:07 Cnc Potassi 3.8 3.5-5.5 complet um 017 mmol/L ed Bld-sCn 05:07 c Sodium 130 132-146 complet Bld-sCn 017 mmol/L ed c 05:07 Creat 2 0.80 0.60-1. complet Bld-mCn 017 mg/dL 30 ed c 05:07 BUN 2 24 9-23 complet Bld-mCn 017 mg/dL ed c 05:07 Glucose 151 70-100 complet 017 mg/dL ed Bld-mCn 05:07 c TSH SerPl (09-05-2016 05:07) TSH 0.431 0.350-5 complet SerPl 017 mIU/mL .350 ed DL<=0.0 05:07 5 mIU/L-a Cnc Mg Ionized SerPl-mCnc (09-05-2016 01:38) Magnesi 1.7 1.3-2.7 complet um 017 mg/dL ed SerPl-m 01:38 Cnc Troponin T SerPl Ql (09-04-2016 23:18) Troponi 0.04 0.00-0. complet n I 017 ng/mL 07 ed SerPl-m 23:18 Cnc Gas Pnl BldA (09-04-2016 21:25) Horowit 100 % complet z index 017 ed 21:25 Bld+IhG -Rto CO2 32.6 22-33 complet BldA-sC 017 ed nc 21:25 COHgb 09-04-2 0.7 % 0-2 complet MFr Bld 017 ed 21:25 MetHgb 09-04-2 0.7 % 0-1.5 complet Bld Ql 017 ed 21:25 OxyHgb 09-04-2 98.8 % 94-99 complet MFr 017 ed BldV 21:25 Hct VFr 09-04-2 38.9 % complet Bld 017 ed 21:25 Hgb 09-04-2 12.7 14-18 complet BldA-mC 017 g/dL ed nc 21:25 SaO2 % 09-04-2 98.8 % complet BldCoA 017 ed 21:25 Base 09-04-2 6.7 0.0-2.0 complet excess 017 mmol/L ed BldA 21:25 Calc-sC nc HCO3 31.2 20.0-26 complet BldA-sC 017 mmol/L .0 ed nc 21:25 pO2 282.0 83.0-10 complet BldA 017 mm Hg 8.0 ed 21:25 pCO2 44.3 mm 35.0-45 complet BldA 017 Hg .0 ed 21:25 pH BldA 7.456 7.350-7 complet 017 pH .450 ed 21:25 units Arteria [id number] complet l 017 09 Not ed patency 21:25 applica Wrist ble SCT a Bdy Arteria complet site 017 l: ed 21:25 right brachia l Haem influ B Ag XXX Ql (09-04-2016 21:24) FLUBV [id number] Negativ complet Ag Nph 017 09 e ed Ql EIA 21:24 Negativ e SCT FLUAV [id number] Negativ complet Ag Nph 017 09 e ed Ql 21:24 Negativ e SCT Bacteria Bld Cult (09-04-2016 21:22) Bacteri No complet a XXX 017 growth ed Aerobe 21:22 at 5 Cult days Lactate SerPl-sCnc (09-04-2016 21:22) D-Lacta 1.3 0.5-2.0 complet te 017 mmol/L ed SerPl-s 21:22 Cnc Troponin T SerPl Ql (09-04-2016 21:13) Troponi 0.02 0.00-0. complet n I 017 ng/mL 07 ed SerPl-m 21:13 Cnc aPTT PPP (09-04-2016 21:06) aPTT 38.2 24.0-31 complet PPP 017 seconds .0 ed 21:06 PT PPP (09-04-2016 21:06) INR PPP 1.52 complet 017 ed 21:06 PT PPP 16.8 9.6-11. complet 017 Seconds 5 ed 21:06 CBC W Diff pnl,unspecified Bld (09-04-2016 21:06) Imm 0.02 0.00-0. complet Granulo 017 10*3/mm 03 ed cytes # 21:06 3 Bld Basophi 03-23-2 0.01 0.00-0. complet ls # 017 10*3/mm 20 ed Bld 21:06 3 Auto Eosinop 03-23-2 0.00 0.10-0. complet hil # 017 10*3/mm 30 ed Bld 21:06 3 Auto Monocyt 03-23-2 1.32 0.00-1. complet es # 017 10*3/mm 00 ed Bld 21:06 3 Auto Lymphoc 03-23-2 0.33 0.60-4. complet ytes # 017 10*3/mm 80 ed Bld 21:06 3 Auto Neutrop 03-23-2 7.20 1.50-8. complet hils # 017 10*3/mm 30 ed Bld 21:06 3 Auto Imm 03-23-2 0.2 % 0.0-0.6 complet Granulo 017 ed cytes 21:06 NFr Bld Basophi 03-23-2 0.1 % 0.0-1.0 complet ls NFr 017 ed Bld 21:06 Auto Eosinop 03-23-2 0.0 % 0.0-3.0 complet hil NFr 017 ed Bld 21:06 Auto Monocyt 03-23-2 14.9 % 0.0-12. complet es NFr 017 0 ed Bld 21:06 Auto Lymphoc 03-23-2 3.7 % 24.0-44 complet ytes 017 .0 ed NFr Bld 21:06 Auto Neutrop 03-23-2 81.1 % 41.0-71 complet hils 017 .0 ed NFr Bld 21:06 Auto Platele 03-23-2 186 150-450 complet t # Bld 017 10*3/mm ed Auto 21:06 3 PMV Bld 03-23-2 10.5 fL 6.0-12. complet Auto 017 0 ed 21:06 RDW RBC 03-23-2 45.0 fl 37.0-54 complet Auto 017 .0 ed 21:06 RDW RBC 03-23-2 12.9 % 11.3-14 complet 017 .5 ed Auto-Rt 21:06 o MCHC -23-2 32.7 32.0-36 complet RBC 017 g/dL .0 ed Auto-mC 21:06 nc MCH RBC 30.9 pg 27.0-31 complet Qn 017 .0 ed Auto 21:06 MCV RBC 94.4 fL 80.0-99 complet Auto 017 .0 ed 21:06 Hct VFr 38.8 % 34.5-44 complet Bld 017 .0 ed Auto 21:06 Hgb 12.7 11.5-15 complet Bld-mCn 017 g/dL .5 ed c 21:06 RBC # 09-04- 4.11 3.89-5. complet Bld 017 10*6/mm 14 ed Auto 21:06 3 WBC 09-04- 8.88 3.50-10 complet nRBC 017 10*3/mm .80 ed cor # 21:06 3 Bld Digoxin>12h p dose SerPl-[facility] (09-04-2016 21:06) Digoxin < 0.01 0.80-2. complet 017 ng/mL 00 ed SerPl-m 21:06 Cnc Comp Metab 1997 Pnl SerPl (09-04-2016 21:06) Anion 13.0 3.0-11. complet Gap3 017 mmol/L 0 ed SerPl-s 21:06 Cnc BUN/Cre 27.5 7.0-25. complet at 017 0 ed SerPl 21:06 Albumin 1.3 1.5-2.5 complet /Glob 017 g/dL ed SerPl 21:06 Globuli 3.0 complet n Ur 017 gm/dL ed Elph-mC 21:06 nc GFR/BSA 70 >60 complet .pred 017 mL/min/ ed SerPl 21:06 1.73 MDRD-Ar VRat Bilirub 09-04-2 0.4 0.3-1.2 complet 017 mg/dL ed SerPl-m 21:06 Cnc ALP 60 U/L 25-100 complet SerPl-c 017 ed Cnc 21:06 AST 42 U/L 0-33 complet SerPl-c 017 ed Cnc 21:06 ALT 09-04-2 28 U/L 7-40 complet SerPl w 017 ed 21:06 P-5'-P- cCnc Albumin 3.90 3.20-4. complet 017 g/dL 80 ed SerPl-m 21:06 Cnc Prot 6.9 5.7-8.2 complet SerPl-m 017 g/dL ed Cnc 21:06 Calcium 9.6 8.7-10. complet 017 mg/dL 4 ed XXX-sCn 21:06 c CO2 28.0 20.0-31 complet SerPl-s 017 mmol/L .0 ed Cnc 21:06 Chlorid 85 99-109 complet e 017 mmol/L ed SerPl-s 21:06 Cnc Potassi 3.9 3.5-5.5 complet um 017 mmol/L ed Bld-sCn 21:06 c Sodium 126 132-146 complet Bld-sCn 017 mmol/L ed c 21:06 Creat 0.80 0.60-1. complet Bld-mCn 017 mg/dL 30 ed c 21:06 BUN 22 9-23 complet Bld-mCn 017 mg/dL ed c 21:06 Glucose 104 70-100 complet 017 mg/dL ed Bld-mCn 21:06 c BNP SerPl-[facility] (09-04-2016 21:06) BNP 285.0 0.0-100 complet SerPl-m 017 pg/mL .0 ed Cnc 21:06 Bas Metab 2000 Pnl SerPl (07-02-2016 12:56) Anion 7.0 3.0-11. complet Gap3 017 mmol/L 0 ed SerPl-s 12:56 Cnc BUN/Cre 33.3 7.0-25. complet at 017 0 ed SerPl 12:56 GFR/BSA 61 >60 complet .pred 017 mL/min/ ed SerPl 12:56 1.73 MDRD-Ar VRat Calcium 10.5 8.7-10. complet 017 mg/dL 4 ed XXX-sCn 12:56 c CO2 41.0 20.0-31 complet SerPl-s 017 mmol/L .0 ed Cnc 12:56 Chlorid 94 99-109 complet e 017 mmol/L ed SerPl-s 12:56 Cnc Potassi 3.8 3.5-5.5 complet um 017 mmol/L ed Bld-sCn 12:56 c Sodium 142 132-146 complet Bld-sCn 017 mmol/L ed c 12:56 Creat 0.90 0.60-1. complet Bld-mCn 017 mg/dL 30 ed c 12:56 BUN 30 9-23 complet Bld-mCn 017 mg/dL ed c 12:56 Glucose 149 70-100 complet 017 mg/dL ed Bld-mCn 12:56 c Mg Ionized SerPl-mCnc (07-02-2016 12:56) Magnesi 2.0 1.3-2.7 complet um 017 mg/dL ed SerPl-m 12:56 Cnc Bas Metab 2000 Pnl SerPl (07-02-2016 06:34) Anion 7.0 3.0-11. complet Gap3 017 mmol/L 0 ed SerPl-s 06:34 Cnc BUN/Cre 36.7 7.0-25. complet at 017 0 ed SerPl 06:34 GFR/BSA 61 >60 complet .pred 017 mL/min/ ed SerPl 06:34 1.73 MDRD-Ar VRat Calcium 10.2 8.7-10. complet 017 mg/dL 4 ed XXX-sCn 06:34 c CO2 39.0 20.0-31 complet SerPl-s 017 mmol/L .0 ed Cnc 06:34 Chlorid 94 99-109 complet e 017 mmol/L ed SerPl-s 06:34 Cnc Potassi 4.6 3.5-5.5 complet um 017 mmol/L ed Bld-sCn 06:34 c Sodium 140 132-146 complet Bld-sCn 017 mmol/L ed c 06:34 Creat 01-18-2 0.90 0.60-1. complet Bld-mCn 017 mg/dL 30 ed c 06:34 BUN 33 9-23 complet Bld-mCn 017 mg/dL ed c 06:34 Glucose 98 70-100 complet 017 mg/dL ed Bld-mCn 06:34 c Bas Metab 1999 Pnl SerPl (07-01-2016 20:29) Glucose 139 70-130 complet BldC 017 mg/dL ed Glucomt 20:29 r-mCnc Bas Metab 1999 Pnl SerPl (07-01-2016 05:31) Anion 8.0 3.0-11. complet Gap3 017 mmol/L 0 ed SerPl-s 05:31 Cnc BUN/Cre 46.7 7.0-25. complet at 017 0 ed SerPl 05:31 GFR/BSA 97 >60 complet .pred 017 mL/min/ ed SerPl 05:31 1.73 MDRD-Ar VRat Calcium 9.8 8.7-10. complet 017 mg/dL 4 ed XXX-sCn 05:31 c CO2 28.0 20.0-31 complet SerPl-s 017 mmol/L .0 ed Cnc 05:31 Chlorid 99 99-109 complet e 017 mmol/L ed SerPl-s 05:31 Cnc Potassi 4.2 3.5-5.5 complet um 017 mmol/L ed Bld-sCn 05:31 c Sodium 135 132-146 complet Bld-sCn 017 mmol/L ed c 05:31 Creat 0.60 0.60-1. complet Bld-mCn 017 mg/dL 30 ed c 05:31 BUN 28 9-23 complet Bld-mCn 017 mg/dL ed c 05:31 Glucose 126 70-100 complet 017 mg/dL ed Bld-mCn 05:31 c CBC (hemogram) Bld Auto (07-01-2016 05:31) WBC 12.19 3.50-10 complet nRBC 017 10*3/mm .80 ed cor # 05:31 3 Bld Platele 213 150-450 complet t # Bld 017 10*3/mm ed Auto 05:31 3 PMV Bld 07-01-2 10.9 fL 6.0-12. complet Auto 017 0 ed 05:31 RDW RBC 17-2 45.3 fl 37.0-54 complet Auto 017 .0 ed 05:31 RDW RBC 17-2 12.7 % 11.3-14 complet 017 .5 ed Auto-Rt 05:31 o MCHC 31.4 32.0-36 complet RBC 017 g/dL .0 ed Auto-mC 05:31 nc MCH RBC 30.4 pg 27.0-31 complet Qn 017 .0 ed Auto 05:31 MCV RBC 96.7 fL 80.0-99 complet Auto 017 .0 ed 05:31 Hct VFr 35.3 % 34.5-44 complet Bld 017 .0 ed Auto 05:31 Hgb 07-01- 11.1 11.5-15 complet Bld-mCn 017 g/dL .5 ed c 05:31 RBC # 17-2 3.65 3.89-5. complet Bld 017 10*6/mm 14 ed Auto 05:31 3 CBC (hemogram) Bld Auto (06-30-2016 05:34) Platele 233 150-450 complet t # Bld 017 10*3/mm ed Auto 05:34 3 PMV Bld 11.0 fL 6.0-12. complet Auto 017 0 ed 05:34 RDW RBC 06-30- 45.5 fl 37.0-54 complet Auto 017 .0 ed 05:34 RDW RBC 06-30-2 13.0 % 11.3-14 complet 017 .5 ed Auto-Rt 05:34 o MCHC 31.6 32.0-36 complet RBC 017 g/dL .0 ed Auto-mC 05:34 nc MCH RBC 30.6 pg 27.0-31 complet Qn 017 .0 ed Auto 05:34 MCV RBC 96.7 fL 80.0-99 complet Auto 017 .0 ed 05:34 Hct VFr 01-16-2 34.8 % 34.5-44 complet Bld 017 .0 ed Auto 05:34 Hgb 11.0 11.5-15 complet Bld-mCn 017 g/dL .5 ed c 05:34 RBC # 3.60 3.89-5. complet Bld 017 10*6/mm 14 ed Auto 05:34 3 WBC 17.00 3.50-10 complet nRBC 017 10*3/mm .80 ed cor # 05:34 3 Bld Bas Metab 1999 Pnl SerPl (06-30-2016 05:34) Anion 8.0 3.0-11. complet Gap3 017 mmol/L 0 ed SerPl-s 05:34 Cnc BUN/Cre 30.0 7.0-25. complet at 017 0 ed SerPl 05:34 GFR/BSA 70 >60 complet .pred 017 mL/min/ ed SerPl 05:34 1.73 MDRD-Ar VRat Calcium 10.3 8.7-10. complet 017 mg/dL 4 ed XXX-sCn 05:34 c CO2 36.0 20.0-31 complet SerPl-s 017 mmol/L .0 ed Cnc 05:34 Chlorid 98 99-109 complet e 017 mmol/L ed SerPl-s 05:34 Cnc Potassi 4.5 3.5-5.5 complet um 017 mmol/L ed Bld-sCn 05:34 c Sodium 142 132-146 complet Bld-sCn 017 mmol/L ed c 05:34 Creat 0.80 0.60-1. complet Bld-mCn 017 mg/dL 30 ed c 05:34 BUN 24 9-23 complet Bld-mCn 017 mg/dL ed c 05:34 Glucose 151 70-100 complet 017 mg/dL ed Bld-mCn 05:34 c Bas Metab 1999 Pnl SerPl (06-29-2016 17:17) Glucose 142 70-130 complet BldC 017 mg/dL ed Glucomt 17:17 r-mCnc CBC (hemogram) Bld Auto (06-29-2016 07:29) Platele 261 150-450 complet t # Bld 017 10*3/mm ed Auto 07:29 3 PMV Bld 10.9 fL 6.0-12. complet Auto 017 0 ed 07:29 RDW RBC 45.1 fl 37.0-54 complet Auto 017 .0 ed 07:29 RDW RBC 06-29- 12.9 % 11.3-14 complet 017 .5 ed Auto-Rt 07:29 o MCHC 32.5 32.0-36 complet RBC 017 g/dL .0 ed Auto-mC 07:29 nc MCH RBC 31.2 pg 27.0-31 complet Qn 017 .0 ed Auto 07:29 MCV RBC 96.0 fL 80.0-99 complet Auto 017 .0 ed 07:29 Hct VFr 38.8 % 34.5-44 complet Bld 017 .0 ed Auto 07:29 Hgb 12.6 11.5-15 complet Bld-mCn 017 g/dL .5 ed c 07:29 RBC # 06-29-2 4.04 3.89-5. complet Bld 017 10*6/mm 14 ed Auto 07:29 3 WBC 06-29- 28.09 3.50-10 complet nRBC 017 10*3/mm .80 ed cor # 07:29 3 Bld Lipid pnl with direct LDL SerPl (06-28-2016 08:05) Articho 76 0-130 complet ke IgE 017 mg/dL ed Qn 08:05 HDLc 66 40-60 complet SerPl-m 017 mg/dL ed Cnc 08:05 Trigl 47 0-150 complet SerPl-m 017 mg/dL ed Cnc 08:05 Cholest 161 0-200 complet 017 mg/dL ed SerPl-m 08:05 Cnc Comp Metab 1998 Pnl SerPl (06-28-2016 08:05) Globuli 3.3 complet n Ur 017 gm/dL ed Elph-mC 08:05 nc Bilirub 0.5 0.3-1.2 complet 017 mg/dL ed SerPl-m 08:05 Cnc ALP 61 U/L 25-100 complet SerPl-c 017 ed Cnc 08:05 AST 20 U/L 0-33 complet SerPl-c 017 ed Cnc 08:05 ALT 17 U/L 7-40 complet SerPl w 017 ed 08:05 P-5'-P- cCnc Albumin 4.10 3.20-4. complet 017 g/dL 80 ed SerPl-m 08:05 Cnc Prot 7.4 5.7-8.2 complet SerPl-m 017 g/dL ed Cnc 08:05 Calcium 10.4 8.7-10. complet 017 mg/dL 4 ed XXX-sCn 08:05 c CO2 30.0 20.0-31 complet SerPl-s 017 mmol/L .0 ed Cnc 08:05 Chlorid 96 99-109 complet e 017 mmol/L ed SerPl-s 08:05 Cnc Potassi 3.9 3.5-5.5 complet um 017 mmol/L ed Bld-sCn 08:05 c Sodium 138 132-146 complet Bld-sCn 017 mmol/L ed c 08:05 Creat 0.70 0.60-1. complet Bld-mCn 017 mg/dL 30 ed c 08:05 BUN 17 9-23 complet Bld-mCn 017 mg/dL ed c 08:05 Glucose 162 70-100 complet 017 mg/dL ed Bld-mCn 08:05 c Anion 12.0 3.0-11. complet Gap3 017 mmol/L 0 ed SerPl-s 08:05 Cnc BUN/Cre 24.3 7.0-25. complet at 017 0 ed SerPl 08:05 Albumin 1.2 1.5-2.5 complet /Glob 017 g/dL ed SerPl 08:05 GFR/BSA 81 >60 complet .pred 017 mL/min/ ed SerPl 08:05 1.73 MDRD-Ar VRat CBC W Diff pnl,unspecified Bld (06-28-2016 08:05) Imm 06-28- 0.2 % 0.0-0.6 complet Granulo 017 ed cytes 08:05 NFr Bld Basophi 0.0 % 0.0-1.0 complet ls NFr 017 ed Bld 08:05 Auto Eosinop 0.0 % 0.0-3.0 complet hil NFr 017 ed Bld 08:05 Auto Monocyt 4.1 % 0.0-12. complet es NFr 017 0 ed Bld 08:05 Auto Lymphoc 8.4 % 24.0-44 complet ytes 017 .0 ed NFr Bld 08:05 Auto Neutrop 87.3 % 41.0-71 complet hils 017 .0 ed NFr Bld 08:05 Auto Platele 193 150-450 complet t # Bld 017 10*3/mm ed Auto 08:05 3 PMV Bld 10.2 fL 6.0-12. complet Auto 017 0 ed 08:05 RDW RBC 44.2 fl 37.0-54 complet Auto 017 .0 ed 08:05 RDW RBC 12.5 % 11.3-14 complet 017 .5 ed Auto-Rt 08:05 o MCHC 32.3 32.0-36 complet RBC 017 g/dL .0 ed Auto-mC 08:05 nc MCH RBC 30.8 pg 27.0-31 complet Qn 017 .0 ed Auto 08:05 MCV RBC 95.4 fL 80.0-99 complet Auto 017 .0 ed 08:05 Hct VFr 37.5 % 34.5-44 complet Bld 017 .0 ed Auto 08:05 Hgb 12.1 11.5-15 complet Bld-mCn 017 g/dL .5 ed c 08:05 RBC # 06-28-2 3.93 3.89-5. complet Bld 017 10*6/mm 14 ed Auto 08:05 3 WBC 06-28-2 12.89 3.50-10 complet nRBC 017 10*3/mm .80 ed cor # 08:05 3 Bld Imm 06-28-2 0.03 0.00-0. complet Granulo 017 10*3/mm 03 ed cytes # 08:05 3 Bld Basophi 06-28-2 0.00 0.00-0. complet ls # 017 10*3/mm 20 ed Bld 08:05 3 Auto Eosinop 06-28-2 0.00 0.10-0. complet hil # 017 10*3/mm 30 ed Bld 08:05 3 Auto Monocyt 06-28-2 0.53 0.00-1. complet es # 017 10*3/mm 00 ed Bld 08:05 3 Auto Lymphoc 06-28- 1.08 0.60-4. complet ytes # 017 10*3/mm 80 ed Bld 08:05 3 Auto Neutrop 11.25 1.50-8. complet hils # 017 10*3/mm 30 ed Bld 08:05 3 Auto Troponin I SerPl-mCnc (06-27-2016 22:35) Troponi 0.164 <=0.040 complet n I 017 ng/mL ed SerPl-m 22:35 Cnc Bacteria Ur Cult (06-27-2016 22:09) Bacteri [id number] complet a XXX 017 9 ed Aerobe 22:09 Normal Cult maisha SCT UA Microscopic Pnl # Ur Auto (06-27-2016 22:09) Ref lab Automat complet test 017 ed ed method 22:09 Microsc opy Hyaline 0-6 0-6 complet Casts 017 /LPF ed Ur Ql 22:09 Auto Squamou 3-6 None complet s 017 /HPF Seen, ed #/area 22:09 0-2 UrnS HPF Bacteri [id number] None complet a Ur Ql 017 06 Seen, ed Auto 22:09 Trace Trace SCT /HPF WBC Ur 13-20 None complet Ql Auto 017 /HPF Seen ed 22:09 RBC # 7-12 None complet Ur 017 /HPF Seen, ed 22:09 0-2 UA Dipstick Pnl Ur (06-27-2016 22:09) Urobili 0.2 0.2 - complet nogen 017 E.U./dL 1.0 ed Ur Ql 22:09 E.U./dL Strip Nitrite [id number] Negativ complet Ur Ql 017 09 e ed Strip 22:09 Negativ e SCT Leukocy [id number] Negativ complet te 017 04 e ed esteras 22:09 Small e Ur Ql SCT Strip.a uto Prot Ur [id number] Negativ complet Ql 017 06 e ed Strip 22:09 Trace SCT Hgb Ur [id number] Negativ complet Ql 017 09 e ed Strip.a 22:09 Negativ uto e SCT Bilirub [id number] Negativ complet Ur Ql 017 09 e ed Strip 22:09 Negativ e SCT Ketones 15 Negativ complet Ur Ql 017 mg/dL e ed Strip 22:09 (1+) Glucose [id number] Negativ complet Ur 017 09 e ed Strip-m 22:09 Negativ Cnc e SCT Sp Gr 1.018 1.001-1 complet Ur 017 .030 ed Strip 22:09 pH Ur 5.5 5.0-8.0 complet Strip.a 017 ed uto 22:09 Clarity [id number] Clear complet Ur 017 5 ed 22:09 Cloudy SCT Color [id number] Yellow, complet Ur 017 09 Straw ed 22:09 Yellow color SCT Troponin T SerPl Ql (06-27-2016 18:02) Troponi 0.19 0.00-0. complet n I 017 ng/mL 07 ed SerPl-m 18:02 Cnc Troponin T SerPl Ql (06-27-2016 14:48) Troponi 0.16 0.00-0. complet n I 017 ng/mL 07 ed SerPl-m 14:48 Cnc CBC W Diff pnl,unspecified Bld (06-27-2016 14:41) Eosinop 0.00 0.10-0. complet hil # 017 10*3/mm 30 ed Bld 14:41 3 Auto Monocyt 06-27-2 1.60 0.00-1. complet es # 017 10*3/mm 00 ed Bld 14:41 3 Auto Lymphoc 1.33 0.60-4. complet ytes # 017 10*3/mm 80 ed Bld 14:41 3 Auto Neutrop 9.62 1.50-8. complet hils # 017 10*3/mm 30 ed Bld 14:41 3 Auto Imm 0.2 % 0.0-0.6 complet Granulo 017 ed cytes 14:41 NFr Bld Basophi 0.2 % 0.0-1.0 complet ls NFr 017 ed Bld 14:41 Auto Eosinop 0.0 % 0.0-3.0 complet hil NFr 017 ed Bld 14:41 Auto Monocyt 12.7 % 0.0-12. complet es NFr 017 0 ed Bld 14:41 Auto Lymphoc 10.5 % 24.0-44 complet ytes 017 .0 ed NFr Bld 14:41 Auto Neutrop 76.4 % 41.0-71 complet hils 017 .0 ed NFr Bld 14:41 Auto Platele 206 150-450 complet t # Bld 017 10*3/mm ed Auto 14:41 3 PMV Bld 10.3 fL 6.0-12. complet Auto 017 0 ed 14:41 RDW RBC 45.1 fl 37.0-54 complet Auto 017 .0 ed 14:41 RDW RBC 12.8 % 11.3-14 complet 017 .5 ed Auto-Rt 14:41 o MCHC 32.5 32.0-36 complet RBC 017 g/dL .0 ed Auto-mC 14:41 nc MCH RBC 31.4 pg 27.0-31 complet Qn 017 .0 ed Auto 14:41 MCV RBC 96.7 fL 80.0-99 complet Auto 017 .0 ed 14:41 Hct VFr 38.2 % 34.5-44 complet Bld 017 .0 ed Auto 14:41 Hgb 12.4 11.5-15 complet Bld-mCn 017 g/dL .5 ed c 14:41 RBC # 06-27- 3.95 3.89-5. complet Bld 017 10*6/mm 14 ed Auto 14:41 3 WBC 12.61 3.50-10 complet nRBC 017 10*3/mm .80 ed cor # 14:41 3 Bld Imm 0.03 0.00-0. complet Granulo 017 10*3/mm 03 ed cytes # 14:41 3 Bld Basophi 0.03 0.00-0. complet ls # 017 10*3/mm 20 ed Bld 14:41 3 Auto BNP SerPl-[facility] (06-27-2016 14:41) BNP 417.0 0.0-100 complet SerPl-m 017 pg/mL .0 ed Cnc 14:41 Comp Metab 1998 Pnl SerPl (06-27-2016 14:41) Anion 9.0 3.0-11. complet Gap3 017 mmol/L 0 ed SerPl-s 14:41 Cnc BUN/Cre 16.7 7.0-25. complet at 017 0 ed SerPl 14:41 Albumin 1.4 1.5-2.5 complet /Glob 017 g/dL ed SerPl 14:41 Globuli 3.0 complet n Ur 017 gm/dL ed Elph- 14:41 nc GFR/BSA 61 >60 complet .pred 017 mL/min/ ed SerPl 14:41 1.73 MDRD-Ar VRat Bilirub 0.7 0.3-1.2 complet 017 mg/dL ed SerPl-m 14:41 Cnc ALP 59 U/L 25-100 complet SerPl-c 017 ed Cnc 14:41 AST 23 U/L 0-33 complet SerPl-c 017 ed Cnc 14:41 ALT 18 U/L 7-40 complet SerPl w 017 ed 14:41 P-5'-P- cCnc Albumin 4.20 3.20-4. complet 017 g/dL 80 ed SerPl-m 14:41 Cnc Prot 7.2 5.7-8.2 complet SerPl-m 017 g/dL ed Cnc 14:41 Calcium 10.3 8.7-10. complet 017 mg/dL 4 ed XXX-sCn 14:41 c CO2 31.0 20.0-31 complet SerPl-s 017 mmol/L .0 ed Cnc 14:41 Chlorid 97 99-109 complet e 017 mmol/L ed SerPl-s 14:41 Cnc Potassi 4.2 3.5-5.5 complet um 017 mmol/L ed Bld-sCn 14:41 c Sodium 137 132-146 complet Bld-sCn 017 mmol/L ed c 14:41 Creat 0.90 0.60-1. complet Bld-mCn 017 mg/dL 30 ed c 14:41 BUN 15 9-23 complet Bld-mCn 017 mg/dL ed c 14:41 Glucose 107 70-100 complet 017 mg/dL ed Bld-mCn 14:41 c
--- OUTSIDE RECORDS SUMMARY | 2017-04-03 10:25 | External Medical Summary Rpt | CCD ---
Author Author , ERON Organization ERON Address Unknown Phone [email or web address] Purpose Continuity of Care Document - 06-27-2016 [...] blood 06:45 platele t mean volume shari Herkimer % = 11.1 1.7-9.3 complet 017 % [...] blood 06:20 platele t mean volume shari Herk[place] % = 7.3 % 1.7-9.3 complet 017 [...] 6.7 6.4-8.2 complet total 017 gm/dL ed ser/huasm 06:20 s ALT = 26 12-78 complet [...] SQUARE METERS Comment: If this patient is -Guine[place], then multiply the Comment: result by 1.210. [...] SQUARE METERS Comment: If this patient is -[place], then multiply the Comment: result by 1.210. [...] blood 06:03 platele t mean volume shari [place] % = 6.9 % 1.7-9.3 complet 017 [...] hematocrit pa (03-28-2017 16:30) Comment: COMMENTS TO TAPE COATER: 1 HR POST TRANSFUSION Blood = 11.3 [...] Comment: BLOOD UNIT # : [id number] RELEASED 03/28/17 1400 Comment: Khurram Guy Comment: Comment: O POSITIVE Leukocyte reduction of packed red blood (03-28-2017 11:20) Leukocy BLOOD complet te 017 UNIT ed reducti 11:20 RELEASE on of BLOOD packed UNIT red RELEASE blood L Comment: Comment: BLOOD UNIT # : [id number] RELEASED 03/28/17 Comment: [employer] Comment: O POS CBC w auto diff (03-28-2017 05:45) Automat = 11.1 7.4-10. complet ed 017 fl 4 ed blood 05:45 platele t mean volume shari [place] % = 7.3 % 1.7-9.3 complet 017 [...] SQUARE METERS Comment: If this patient is -Guine[place], then multiply the Comment: result by 1.210. [...] ed ser/husam 09:10 s Comment: Performed at: [facility] Comment: [id number], [place] [id number] Comment: [employer]: Shahriar Mena PhD, Phone: [phone] Cardiac enzymes (03-27-2017 07:55) Serum 10-2 = [...] SQUARE METERS Comment: If this patient is -Guine[place], then multiply the Comment: result by 1.210. [...] blood 03:00 platele t mean volume shari Herk[place] % = 14.2 1.7-9.3 complet 017 % [...] 017 pH .450 ed 21:25 units Arteria [id number] complet l 017 09 Not ed patency 21:25 applica Wrist ble SCT a Bdy Arteria complet site 017 l: ed 21:25 right brachia l Haem influ B Ag XXX Ql (09-04-2016 21:24) FLUBV [id number] Negativ complet Ag Nph 017 09 e ed Ql EIA 21:24 Negativ e SCT FLUAV [id number] Negativ complet Ag Nph 017 09 e [...] # 21:06 3 Bld Digoxin>12h p dose SerPl-[facility] (09-04-2016 21:06) Digoxin < 0.01 0.80-2. [...] 017 mg/dL ed Bld-mCn 21:06 c BNP SerPl-[facility] (09-04-2016 21:06) BNP 285.0 0.0-100 complet [...] Cnc Bacteria Ur Cult (06-27-2016 22:09) Bacteri [id number] complet a XXX 017 9 ed Aerobe 22:09 Normal Cult maisha SCT UA Microscopic Pnl # Ur Auto (06-27-2016 22:09) Ref lab Automat complet test 017 ed ed method 22:09 Microsc opy Hyaline 0-6 0-6 complet Casts 017 /LPF ed Ur Ql 22:09 Auto Squamou 3-6 None complet s 017 /HPF Seen, ed #/area 22:09 0-2 UrnS HPF Bacteri [id number] None complet a Ur Ql 017 06 Seen, ed Auto 22:09 Trace Trace SCT /HPF WBC Ur 13-20 None complet Ql Auto 017 /HPF Seen ed 22:09 RBC # 7-12 None complet Ur 017 /HPF Seen, ed 22:09 0-2 UA Dipstick Pnl Ur (06-27-2016 22:09) Urobili 0.2 0.2 - complet nogen 017 E.U./dL 1.0 ed Ur Ql 22:09 E.U./dL Strip Nitrite [id number] Negativ complet Ur Ql 017 09 e ed Strip 22:09 Negativ e SCT Leukocy [id number] Negativ complet te 017 04 e ed esteras 22:09 Small e Ur Ql SCT Strip.a uto Prot Ur [id number] Negativ complet Ql 017 06 e ed Strip 22:09 Trace SCT Hgb Ur [id number] Negativ complet Ql 017 09 e ed Strip.a 22:09 Negativ uto e SCT Bilirub [id number] Negativ complet Ur Ql 017 09 e ed Strip 22:09 Negativ e SCT Ketones 15 Negativ complet Ur Ql 017 mg/dL e ed Strip 22:09 (1+) Glucose 1632949 Negativ complet Ur 017 09 e ed Strip-m 22:09 Negativ Cnc e SCT Sp Gr 1.018 1.001-1 complet Ur 017 .030 ed Strip 22:09 pH Ur 5.5 5.0-8.0 complet Strip.a 017 ed uto 22:09 Clarity [id number] Clear complet Ur 017 5 ed 22:09 Cloudy SCT Color [id number] Yellow, complet Ur 017 09 Straw ed [...] 20 ed Bld 14:41 3 Auto BNP SerPl-[facility] (06-27-2016 14:41) BNP 417.0 0.0-100 complet [...]
--- OUTSIDE RECORDS SUMMARY | 2017-04-03 10:26 | External Medical Summary Rpt | CCD ---
Author Author , ERON LITTLEJOHN Address Unknown Phone Immunization Name Date Rout CVX Reac Dose Comm Prov Is Faci e tion ent ider Refu lity Give sed n PPV2 09-0 33 999 Hist [facility] No LEX[facility] 3 6-20 oric DANITA DANITA 16 al Info rmat ion - Sour ce Unsp ecif ied PCV1 07-1 133 999 Hist [facility] No LEXC 3 0-20 oric DANITA DANITA 15 al Info rmat ion - Sour ce Unsp ecif ied Infl 02-2 141 999 Hist [place] No [place] uenz 7-20 ori DANITA DANITA a, 13 al Seas Info onal rmat ion - Sour ce Unsp ecif ied PPV2 02-2 33 999 Hist [place] No [place] 3 7-20 oric DANITA DANITA 13 al Info rmat ion - Sour ce Unsp ecif ied Zost 02-2 121 999 Hist [place] No [place] er 7-20 oric DANITA DANITA 13 al Info rmat ion - Sour ce Unsp ecif ied
--- OUTSIDE RECORDS SUMMARY | 2017-04-03 10:26 | External Medical Summary Rpt | CCD ---
Author Author , ERON LITTLEJOHN Address Unknown Phone [email or web address] Immunization Name Date Rout CVX Reac Dose [...]
[2017-04-03 10:53] LABS: NEUTROPHILS 80 % (42-76)
[2017-04-03] MEDS ORDERED: ZOFRAN ODT4 MG PO (11:28)
[2017-04-03] MEDS ORDERED: MEDROL 4MG. DOSE4 MG PO (11:28)
--- NOTE | 2017-04-03 12:05 | RADIOLOGY REPORT PS360 ---
CHEST-PORTABLE HISTORY: tachypnea recent pneumonia ORDERING PHYSICIAN: Coretta Humphrey MD PATIENT AGE: 77 years COMPARISON: 03/30/2017 FINDINGS: Unremarkable cardiovascular structures. Hiatal hernia is present. There is COPD with hyperinflation and attenuation of the peripheral pulmonary vessels. There remains interstitial markings in the lung bases but no lobar consolidation or collapse. Small bilateral effusions have improved. IMPRESSION: Improvement in bibasilar airspace disease and small bilateral effusions with persistent increased interstitial markings in the lung bases with COPD
[2017-04-03 12:43] VITALS: BP 144/68
== END 2017-04-03 12:45 | disposition home or self-care (01) ==
LOC: ER 09:35
PROVIDERS: Emergency Medicine
DX: J44.1 Chronic obstructive pulmonary disease with (acute) exacerbation (principal); I48.2 Chronic atrial fibrillation; I47.2 Ventricular tachycardia; I25.10 Atherosclerotic heart disease of native coronary artery without angina pectoris; I25.2 Old myocardial infarction; I10 Essential (primary) hypertension; Z95.5 Presence of coronary angioplasty implant and graft; F41.9 Anxiety disorder, unspecified; Z79.01 Long term (current) use of anticoagulants; Z79.82 Long term (current) use of aspirin; Z79.899 Other long term (current) drug therapy; Z87.891 Personal history of nicotine dependence
CPT/HCPCS: J2405

== ENCOUNTER 2017-04-19 10:20 | Inpatient (IN) | payer MEDICARE ==
[2017-04-19] VITALS (22 sets, daily range): BP systolic 127–164; BP diastolic 60–88
[~2017-04-19] VITALS: Ht 154.9 cm; Wt 40.6 kg
[~2017-04-19 10:20] MED LIST changes: +MEDROL 4MG. DOSE4 MG PO; +ZOFRAN ODT4 MG PO
--- NOTE | 2017-04-19 10:40 | Emergency Room Report ---
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 N Clinical Suspician of Infection? N Mental Status: 1 - Regular (Normal Baseline) Sepsis Risk:Low Sepsis Risk Have you (or family members/close friends) recently traveled outside the [place]? N If Yes, where/when: Have you had exposure to infectious disease within the past month? N TB? Other? Specify: 77 years old white female intermediate resident with multiple medical problems. She is a chronic obstructive pulmonary disease patient who was in antibiotics and steroids and developed upper abdominal discomfort. She was better using Zofran. She was sent from the intermediate because of low H and H. She still has upper abdominal discomfort denies vomiting or diarrhea. She denies having hematemesis coffee-ground emesis or melanotic stool. Source patient, RN notes reviewed, intermediate records, old records Exam Limitations no limitations ALLERGIES Coded Allergies: Penicillins (Mild, 03/27/17) aspirin (Mild, 03/27/17) Home Medications Active Scripts Methylprednisolone (Medrol Dose Jairo) 4 MG PO UD #1 JAIRO Prov: 04/03/17 Ondansetron (Zofran 4MG Odt) 4 MG PO Q6HP PRN NAUSEA AND VOMITING #6 ODT Prov: 04/03/17 Pantoprazole Sodium 40 MG PO BID #60 TABS Ref 1 Prov: 04/02/17 DIGOXIN (Digox) 0.125 MG PO DAILY #30 TAB Ref 2 Prov: 04/02/17 CEFDINIR (Cefdinir) 300 MG PO BID #10 CAP Prov: 04/02/17 DILTIAZEM HCL (Diltiazem 12HR ER) 120 MG PO BID #60 C12 Ref 2 Prov: 04/02/17 Guaifenesin/Dextromethorphan (Robitussin Cough-Chest Dm Liq) 10 ML PO Q6HP PRN COUGH #240 ML Ref 2 Prov: 04/02/17 Reported Medications Senna Pod (Senna Laxative) 2 TAB PO QHS Tiotropium [place] (Spiriva) 2 PUFF IH DAILY Guaifenesin (Mucus ER) 600 MG PO BID Budesonide (Pulmicort) 0.5 MG IN BID Formoterol Fumarate (Perforomist) 20 MCG IH BID Acetaminophen (Acetaminophen Extra Strength) 500 MG PO PRN PRN PAIN OR FEVER Aspirin (Adult Low Dose Aspirin EC) 81 MG PO DAILY Cyanocobalamin (Vitamin B-12) (Vitamin B12) 1,000 MCG PO DAILY Roflumilast (Daliresp) 500 MCG PO DAILY Apixaban (Eliquis) 5 MG PO BID MELATONIN (Melatin) 1 TAB PO QHS PAROXETINE HCL (Paxil) 10 MG PO DAILY ALBUTEROL (Proventil Hfa Inhaler) 1-2 PUFF IH Q4-6H PRN ONDANSETRON HCL (Zofran 4MG Tab) 4 MG PO Q6HP PRN NAUSEA AND VOMITING ALBUTEROL (Albuterol 0.083% Neb) 2.5 MG INH QID History Medical History General CAD? Yes Angina: Yes NC: Yes Hypertension? Yes Hyperlipidemia? No CHF? No DVT? No PE? No COPD? Yes Asthma? No Anemia? No GERD? No Gastric ulcers? No GI Bleed? No Hernia? No Thyroid Problems? No Hypothyroidism? No CVA? No Seizures? No Diabetes? No Renal Insuffiency? No End Stage Renal Disease? No UTI? No Stones? No BPH? No GB Disease: No Nephritic Syndrome? No Asplenia? No Hepatitis? No Sickle Cell Disease? No Arthritis? No Migraines? No Cataracts? No Glaucoma? No MRSA? No HIV? No TB? No Anxiety? Yes Depression? No Cancer? No More? No Additional hx: 1. Chronic atrial fib Immunization Hx DT/Tetanus Unknown Flu Refused Pneumonia Never Had Surgical Hx Previous Surgery?Y Cath w/Stent Family History Family Hx Diabetes No CAD Yes Hypertension Yes Hyperlipidemia No Cancer No TB No Social History Smoking Hx Smoker: Former Smoker Tobacco: No Type Cigarettes Packs/day 1 1/2 - 2 Packs Alcohol Alcohol: No Review of Systems All Other Systems Reviewed and Negative Constitutional see HPI, weakness Eyes no symptoms reported ENT no symptoms reported. Respiratory no symptoms reported Cardiovascular no symptoms reported Gastrointestinal see HPI, nausea (DYSPEPSIA) Genitourinary no symptoms reported. Musculoskeletal no symptoms reported Skin no symptoms reported Psychiatric/Neurological no symptoms reported Physical Exam Vital Signs Vital Signs Date Time Temp Pulse Resp B/P Pulse O2 O2 Flow FiO2 Ox Delivery Rate 04/19 1312 91 04/19 1312 97.9 91 22 146/60 04/19 1312 100 OXYGEN 04/19 1254 98.4 88 18 136/98 100 3 04/19 1022 98.4 88 18 142/88 100 3 - WBC >12,000 or <4,000 or 10% bands? 2 or more SIRS Criteria Met? B/P: MAP: Creatinine >2.0? UA output<0.5ml/kg/hr for 2 hrs? Platelet count >100,000? Lactate >2.0mmol/1? INR >1.2 or PTT > than 60 sec? Evidence of Organ Dysfunction? Provider documented clinical suspician of infection? N Sepsis Criteria Count: 0 Sepsis Risk: Low Sepsis Risk General Appearance normal appearance, WD/WN, no apparent distress Eye Exam - bilateral eye normal exam, bilateral eye PERRL, bilateral eye EOMI Ear, Nose, Throat hearing grossly normal, normal ENT inspection Neck normal inspection, non-tender, supple, full range of motion Respiratory Status Yes: trachea midline, chest symmetrical, non tender chest. No: respiratory distress. Lung Sounds bilateral: normal breath sounds, lungs clear. 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 No Results/Orders Laboratory Tests 04/19/17 1115: Urine Color DK YELLOW, Urine Appearance SL CLOUDY, Urine pH 6.5, Ur Specific [place] 1.015, Urine Protein NEGATIVE, Urine Ketones NEGATIVE, Urine Blood NEGATIVE, Urine Nitrate NEGATIVE, Urine Bilirubin NEGATIVE, Urine Urobilinogen 0.2, Ur Leukocyte Esterase NEGATIVE, Urine WBC 3-5, Ur Squamous Epith Cells OCC, Urine Bacteria 4+, Urine Glucose NEGATIVE 04/19/17 1040: Magnesium 1.3 L, Troponin I 0.02, Lipase 56 L, MCH 30.6 04/19/17 1040: Sodium 136, Potassium 3.7, Chloride 97 L, Carbon Dioxide 35 H, BUN 17, Creatinine 0.7, Estimated Creat Clear 42 L, Estimated GFR (MDRD) 81, Glucose 115 H, Calcium 9.9, Total Bilirubin 1.1 H, AST 9 L, ALT 10 L, Alkaline Phosphatase 84, Total Protein 5.5 L, Albumin 2.5 L, Globulin 3.0, Albumin/ Globulin Ratio 0.8 L, WBC 2.5 L, RBC 2.42 L, Hgb 7.4 *L, Hct 22.8 *L, MCV 93.9, RDW 16.8, Plt Count 68 L, MPV 9.5, Gran % 69.5, Gran # 1.7 L, Lymphocytes % 16.7, Monocytes % 13.2 H, Eosinophils % 0.2, Basophils % 0.4, Lymphocytes # 0.4 L, Monocytes # 0.3, Eosinophils # 0.0, Basophils # 0.0, PUBS MCHC 32.5, Antibody Screen NEGATIVE, Miscellaneous Test POSITIVE, Digoxin 0.77 L 04/19/17 1035: Stool Occult Blood NEGATIVE 04/19/17 1030: PT 13.4 H, INR 1.24 H, APTT 25.8 Current Medication Orders Sig/Dylan Start time Last Medication Dose Route Stop Time Status Admin Influenza Virus 0.5 ML PRN PRN 04/19 1245 AC Vaccine Quadrival IM Nicotine 21 MG DAILYP PRN 04/19 1245 AC TD Sodium Chloride 10 ML PRN PRN 04/19 1230 AC IV 04/20 1225 Diatrizoate Meglum/ 30 ML ONCE ONE 04/19 1100 DC 04/19 Diatrizoate Sod PO 04/19 110 1107 Diatrizoate Meglum/ 0 .STK-MED ONE 04/19 1059 DC Diatrizoate Sod .ROUTE Famotidine 0 .STK-MED ONE 04/19 1048 DC IV Ondansetron HCl 0 .STK-MED ONE 04/19 104 DC .ROUTE Pantoprazole Sodium 0 .STK-MED ONE 11/05 1041 DC IV Sodium Chloride 1,000 ML .STK-MED ONE 04/19 1041 DC IV Famotidine 20 MG ONCE ONE 04/19 1030 DC 04/19 IV 04/19 1031 1047 Ondansetron HCl 4 MG ONCE ONE 04/19 1030 DC 04/19 IV 04/19 1031 1044 Sodium Chloride 8 ML ONCE ONE 04/19 1030 DC IV 04/19 1031 Sodium Chloride 1,000 ML .Q4H 04/19 1030 DC 04/19 IV 04/19 1429 1044 Sodium Chloride 10 ML PRN PRN 04/19 1030 AC IV 04/20 1028 Orders Procedure Date/time Status CBC WITH AUTO DIFF 04/20 600 Active BASIC METABOLIC PROFILE 04/20 600 Active DIET-NOTHING BY MOUTH 04/19 L Complete [id number]-BW FAT/LO CHO/MCKENNA 04/19 D Active PT ON HOME OXYGEN QUERY NOTICE 04/19 1330 Active ADV DIRECTIVE COPY AT [facility] =YES 04/19 1330 Active ADV DIRECTIVE QUERY ANSWERED Y 04/19 1330 Active IV SALINE LOCK 04/19 1225 Active Decision to admit 04/19 1124 Active CULTURE, URINE 04/19 1115 Active PARTIAL THROMBOPLASTIN TIME 04/19 1109 Complete PROTHROMBIN TIME 04/19 1109 Complete DIGOXIN 04/19 1108 Complete ELECTROCARDIOGRAM REQUEST 04/[address] ABD/PELVIS REQ 04/19 1031 Complete CHEST-PORTABLE 04/19 1031 Active URINALYSIS/COMPLETE 04/19 1031 Complete TROPONIN I 04/19 1031 Complete MAGNESIUM 04/19 1031 Complete LIPASE 04/19 1031 Complete TYPE FOR CROSSMATCH 04/19 1029 Complete STOOL OCCULT BLOOD 04/19 1029 Complete CBC WITH AUTO DIFF 04/19 1029 Complete CHEM 12 PROFILE 04/19 1029 Complete ADMIT PATIENT 04/[address] ABD & PELVIS W/ CONTRAST 04/19 UNK Active VITAL SIGNS 04/19 UNK Active CODE STATUS 04/19 UNK Active BLOOD TRANSFUSION ORDER 04/19 UNK Active PATIENT ACTIVITY ORDER 04/19 UNK Active CM/EKG CM/EKG EKG rate, NSR, rhythm, no evid. of ischemic chgs, SINUSES 86/M FELT q-WAVE IN ANTERIOR LEADS NO ACUTE FINDINGS NONSPECIFIC st SEGMENT CHANGES IN THE LATERAL LEADS XRAY/CT/US XRAY/CT/US XRAY chest XR interpretation by reviewed by me Xray Results normal/NAD, no fracture seen, no infiltrates Departure Departure Time of Disposition 1038 Disposition Still a Patient Clinical Impression Primary Impression: Weakness Secondary Impressions: Anemia, COPD (chronic obstructive pulmonary disease), Lymphoma, Ovarian cyst, Thoracic aortic aneurysm Condition STABLE Referrals Barrett Khanna MD Additional Instructions I did receive a CT report on Ms. Smith of a retroperitoneal mass most likely lymphoma thoracic aneurysm 4 cm withpout acute findings and the 9 cm ovarian cyst. I conveyed this information as to Dr. Khanna. Patient was admitted for blood transfusion and workup. Discharge Counseling Counseled pt/family regarding diagnosis, test results, medications/RX, home care, follow up needs ED Critical Care Critical Care No If Critical Care minutes are documented, the time involved in the performance of seperately reportable procedures was not counted toward critical care time documented. I directly delivered medical care to this critically ill and/or injured patient. Timely evaluation and treatment was necessary to address the significant organ system(s) dysfunction present in this patient. at [id number]
[2017-04-19 11:01] LABS: LYMPH # 0.4 K/mm3 (0.7-4.5); LYMPH % 16.7 % (10-50.0)
[2017-04-19 11:06] LABS: STOOL OCCULT BLOOD NEGATIVE (NEG)
[2017-04-19 11:08] LABS: HEMOGLOBIN 7.4 g/dL (12.2-16.2)
[2017-04-19 11:38] LABS: ABO BLOOD TYPE O; RH BLOOD TYPE POSITIVE
--- OUTSIDE RECORDS SUMMARY | 2017-04-19 11:58 | External Medical Summary Rpt | CCD ---
Author Author , ERON LITTLEJOHN Address Unknown Phone [email or web address] Immunization Name Date Rout CVX Reac Dose [...] LEXC No LEXC 3 7-20 oric DANITA DANIAT 13 al Info rmat ion - Sour ce Unsp ecif ied
--- OUTSIDE RECORDS SUMMARY | 2017-04-19 11:58 | External Medical Summary Rpt | CCD ---
Author Author , ERON LITTLEJOHN Address Unknown Phone [email or web address] Immunization Name Date Rout CVX Reac Dose [...]
--- OUTSIDE RECORDS SUMMARY | 2017-04-19 11:58 | External Medical Summary Rpt | Continuity of Care Document ---
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 Upon arrival was greeted by nurse that explained that for the past hour patient's heart rate has been fast and she has a history of atrial fibrillation and she was given her digoxin, however rate has not changed. Her primary care physician was contacted and wanted her transported to [facility] ED for an evaluation. Upon approaching patient, she was lying supine in bed alert and oriented x4. She was pink, warm, and slightly diaphoretic. She complained of not feeling well and was having some pain in her throat, 2 of 10 on pain scale. Patient ALS assessment performed and noted. She was wearing home oxygen running on 2L via a nasal cannula. She has a past medical history of atrial fibrillation, HTN, past VT, COPD, and anxiety. Medications and allergies noted. She was moved onto stretcher via a pull sheet and secured with straps in a position of comfort. She was transferred over to EMS oxygen via nasal cannula running on 2L. She was loaded into ambulance and placed onto ECG monitor showing a SVT at a rate of 170. 12 lead ECG performed and confirmed SVT. Vagal maneuvers used and patient heart rate dropped to 123. A blood draw was performed 20g to left AC and given to [facility] ED upon arrival. An IV was established 20g NS to left AC and flushed with 10ml of NS and NS infused at a rate of KVO. Blood glucose checked off of IV catheter and read at 186. She was monitored closely and transported non-emergent to [facility] ED without incident per her physician's request. She required transport via ambulance because her tachycardia required ECG monitoring, performance of vagal maneuvers, oxygen administration and IV fluids during transport. She was taken into [facility] ED on stretcher and moved into bed #7 via a pull sheet. Patient care and report transferred over to Paxton Bey RN. Run completed by SUNIL Bahena.
--- OUTSIDE RECORDS SUMMARY | 2017-04-19 11:58 | External Medical Summary Rpt | Continuity of Care Document ---
Author Author Organization Address Unknown Phone Unavailable Care Team Providers Care Educational Adviser Name Role Phone , Unavailable Unavailable EMS Current Medications Section EMS Allergies and Adverse Reactions EMS Past Medical History Medications Administered Section EMS Procedures Performed EMS Vital Signs EMS Patient Care Report Narrative Dispatched emergent to [facility] to a 77 year old female with a rapid heart rate. Upon arrival was greeted by nurse that explained that for the past hour patient's heart rate has been fast and she has a history of atrial fibrillation and she was given her digoxin, however rate has not changed. Her primary care physician was contacted and wanted her transported to [facility] ED for an evaluation. Upon approaching patient, [...] medical history of atrial fibrillation, HTN, past AL, COPD, and anxiety. Medications and allergies noted. [...] 20g to left AC and given to [facility] ED upon arrival. An IV was established 20g NS to left AC and flushed with 10ml of NS and NS infused at a rate of KVO. Blood glucose checked off of IV catheter and read at 186. She was monitored closely and transported non-emergent to [facility] ED without incident per her physician's request. She required transport via ambulance because her tachycardia required ECG monitoring, performance of vagal maneuvers, oxygen administration and IV fluids during transport. She was taken into [facility] ED on stretcher and moved into bed #7 via a pull sheet. Patient care and report transferred over to Paxton Bey RN. Run completed by SUNIL Bahena.
[2017-04-19 12:14] LABS: URINE BILIRUBIN - DIPSTICK NEGATIVE (NEG); URINE BLOOD NEGATIVE (NEG)
[2017-04-19 12:23] LABS: URINE SQUAMOUS CELLS OCC #/hpf (0-5)
--- OUTSIDE RECORDS SUMMARY | 2017-04-19 12:50 | External Medical Summary Rpt | CCD ---
Author Author , ERON Organization ERON Address Unknown Phone [email or web address] Purpose Continuity of Care Document - 06-27-2016 through 2016 Results Labs Lab Lab Date Result Refere Interp Status Commen Order Detail nces retati t Range on Urinalysis with microscopy (04-19-2017 11:15) Urine SL CLEAR complet appeara 017 CLOUDY ed nce 11:15 SL determi CLOUDY nation L Bacteri 4+ 4+ L O complet a 017 ed detecti 11:15 on in urine sedimen t by Urine NEGATIV NEG complet total 017 E ed bilirub 11:15 NEGATIV in E L detecti on by test Urine NEGATIV NEG complet blood 017 E ed detecti 11:15 NEGATIV on E L Urine DK YELLOW complet color 017 YELLOW ed 11:15 DK YELLOW L Glucose = NEG complet ur 017 NEGATIV ed test 11:15 E strip Urine NEGATIV NEG complet ketones 017 E ed 11:15 NEGATIV detecti E L on by mg/dL automat ed devendra Mucus NEGATIV NEG complet detecti 017 E ed on in 11:15 NEGATIV urine E L sedimen t by lig Urine NEGATIV NEG complet nitrite 017 E ed 11:15 NEGATIV detecti E L on by test strip Urine = 6.5 5.0-8.5 complet pH 017 ed 11:15 Urine = NEG complet protein 017 NEGATIV ed 11:15 E mg/dL measure ment by automat ed t Urine = 1.015 1.005-1 complet specifi 017 .030 ed c 11:15 gravity measure ment [place] OCC OCC 0-5 complet s 017 L ed epithel 11:15 #/hpf ial cells detecti on in u Urine 0.2 0.2 NEG complet urobili 017 L ed nogen 11:15 E.U./dL detecti on by test str Urine 3 - 5 O complet leukocy 017 wbc/hpf ed devendra 11:15 count (number /volume ) CBC w auto diff (04-19-2017 10:40) Automat = 0.0 0-0.2 complet ed 017 K/MM3 ed blood 10:40 basophi l count (count/ vo Baso % = 0.4 % 0.1-2.0 complet 017 ed 10:40 Automat = 0.0 0.0-0.4 complet ed 017 K/mm3 ed blood 10:40 eosinop hil count Automat = 0.2 % 0.1-12. complet ed 017 0 ed blood 10:40 eosinop hils/10 0 leukocy t Blood = 1.7 1.8-7.8 complet granulo 017 K/mm3 ed cytes 10:40 automat ed count (numb Granulo = 69.5 37.0-80 complet cyte 017 % .0 ed percent 10:40 age Blood = 22.8 37.0-47 complet hematoc 017 % .0 ed rit 10:40 (volume fractio n) Comment: CRITICAL RESULTS Comment: RESULTS CALLED TO: JACKLYN 04/19/17 1108 Reed Rolle Blood = 7.4 12.2-16 complet hemoglo 017 g/dL .2 ed bin 10:40 measure ment (mass/v olum Comment: CRITICAL RESULTS Comment: RESULTS CALLED TO: JACKLYN 04/19/17 1108 Reed Rolle Absolut = 0.4 0.7-4.5 complet e 017 K/mm3 ed lymphoc 10:40 yte count Lymphoc = 16.7 10-50.0 complet yte 017 % ed count, 10:40 blood, automat ed Mean = 30.6 27-31.2 complet corpusc 017 pg ed ular 10:40 hemoglo bin (MCH) determ Automat = 32.5 31.8-35 complet ed 017 g/dl .4 ed erythro 10:40 cyte mean corpusc ular h Automat = 93.9 82.2-97 complet ed 017 fl .8 ed erythro 10:40 cyte mean corpusc ular v Absolut = 0.3 0.1-1.0 complet e 017 K/mm3 ed monocyt 10:40 e count [place] % = 13.2 1.7-9.3 complet 017 % ed 10:40 Automat = 9.5 7.4-10. complet ed 017 fl 4 ed blood 10:40 platele t mean volume shari Blood = 68 142-424 complet platele 017 K/mm3 ed t count 10:40 Red = 2.42 4.2-5.4 complet blood 017 M/mm3 ed cell 10:40 count Automat = 16.8 11.5-17 complet ed 017 % .5 ed erythro 10:40 cyte distrib ution width Blood = 2.5 4.8-10. complet leukocy 017 K/MM3 8 ed devendra 10:40 count (number /volume ) Comprehensive metabolic panel (04-19-2017 10:40) Serum = 0.8 1.1-1.8 complet or 017 ed plasma 10:40 albumin /globul in mass ra Serum = 2.5 3.4-5.0 complet or 017 gm/dL ed plasma 10:40 albumin measure ment (mas Serum = 84 46-116 complet or 017 U/L ed plasma 10:40 alkalin e phospha tase shari Serum = 1.1 0.2-1.0 complet or 017 mg/dL ed plasma 10:40 total bilirub in measure m Serum = 17 7-18 complet or 017 mg/dL ed plasma 10:40 urea nitroge n measure men Serum = 9.9 8.5-10. complet or 017 mg/dL 1 ed plasma 10:40 calcium measure ment (mas Serum = 97 98-107 complet or 017 mmoL/L ed plasma 10:40 chlorid e measure ment (mo Carbon = 35 21.0-32 complet dioxide 017 mmoL/L .0 ed 10:40 measure ment Serum = 0.7 0.55-1. complet or 017 mg/dL 02 ed plasma 10:40 creatin ine measure ment ( Estimat = 42 50-200 complet ion of 017 ML/MIN ed creatin 10:40 ine renal clearan ce Estimat = 81 59- complet ed 017 ML/MIN ed glomeru 10:40 lar filtrat ion rate (GF Comment: REFERENCE RANGE: >60 ML/MIN/1.73 SQUARE METERS Comment: If this patient is -Indian, then multiply the Comment: result by 1.210. Serum = 3.0 1.3-3.2 complet globuli 017 gm/dL ed n 10:40 measure ment (mass/v olume) Serum = 115 74-106 complet or 017 mg/dL ed plasma 10:40 glucose measure ment (mas Serum = 3.7 3.5-5.1 complet potassi 017 mmoL/L ed um 10:40 measure ment Serum = 136 136-145 complet sodium 017 mmoL/L ed measure 10:40 ment Serum = 9 U/L 15-37 complet or 017 ed plasma 10:40 asparta te aminotr ansfera ALT = 10 12-78 complet (SGPT) 017 U/L ed ser/husam 10:40 s Protein = 5.5 6.4-8.2 complet total 017 gm/dL ed ser/husam 10:40 s Lipase measurement (04-19-2017 10:40) Lipase = 56 73-393 complet measure 017 U/L ed ment 10:40 Magnesium measurement (04-19-2017 10:40) Magnesi = 1.3 1.4-2.2 complet um 017 mg/dL ed measure 10:40 ment Serum or plasma troponin i.cardiac measu (04-19-2017 10:40) Serum = 0.02 0.00-0. complet or 017 ng/mL 06 ed plasma 10:40 troponi n i.cardi ac measu Digoxin level (04-19-2017 10:40) Digoxin = 0.77 1.15-2. complet level 017 ng/mL 56 ed 10:40 Blood type and crossmatch (04-19-2017 10:40) Materna NEGATIV NEGATIV complet l 017 E E ed antibod 10:40 NEGATIV y E L screen Rh POSITIV complet blood 017 E ed group 10:40 POSITIV typing E L Blood O O L complet ABO 017 ed group 10:40 typing Fecal occult blood test (04-19-2017 10:35) Stool NEGATIV NEG complet occult 017 E ed blood 10:35 NEGATIV test on E L first specime Whole blood INR measurement (04-19-2017 10:30) Comment: IS PATIENT ON ANTICOAGULANTS? Y Comment: LIST ANTICOAGULANTS: Comment: NONE SPECIFIED Whole = 1.24 0.9-1.1 complet blood 017 ed INR 10:30 measure ment Comment: INDICATION INR RANGE Comment: Comment: THERAPY FOR DVT, PE, ATRIAL FIB; 2.0 - 3.0 Comment: PROPHYLAXIS FOR VTE Comment: Comment: THERAPY FOR MECHANICAL HEART 2.5 - 3.5 Comment: VALVE; PREVENTION OF SYSTEMIC Comment: EMBOLISM SECONDARY TO AMI Prothro = 13.4 9.4-11. complet mbin 017 SECONDS 8 ed time 10:30 (PT) in platele t poor p Activated partial thromboplastin time (a (04-19-2017 10:30) Comment: IS PATIENT ON ANTICOAGULANTS? Y Comment: LIST ANTICOAGULANTS: Comment: NONE SPECIFIED Activat = 25.8 23.6-34 complet ed 017 SECONDS .0 ed partial 10:30 thrombo plastin time (a Amylase ser/plas (04-19-2017 08:00) Amylase 11-05-2 = 13 25-115 complet 017 U/L ed ser/husam 08:00 s Comprehensive metabolic panel (04-19-2017 08:00) Serum 05-2 = 1.0 1.1-1.8 complet or 017 ed plasma 08:00 albumin /globul in mass ra Serum 04-19-2 = 2.4 3.4-5.0 complet or 017 gm/dL ed plasma 08:00 albumin measure ment (mas Serum 2 = 80 46-116 complet or 017 U/L ed plasma 08:00 alkalin e phospha tase shari Serum 2 = 1.0 0.2-1.0 complet or 017 mg/dL ed plasma 08:00 total bilirub in measure m Serum = 15 7-18 complet or 017 mg/dL ed plasma 08:00 urea nitroge n measure men Serum 2 = 9.5 8.5-10. complet or 017 mg/dL 1 ed plasma 08:00 calcium measure ment (mas Serum 2 = 98 98-107 complet or 017 mmoL/L ed plasma 08:00 chlorid e measure ment (mo Carbon = 33 21.0-32 complet dioxide 017 mmoL/L .0 ed 08:00 measure ment Serum 2 = 0.6 0.55-1. complet or 017 mg/dL 02 ed plasma 08:00 creatin ine measure ment ( Estimat 2 = 97 59- complet ed 017 ML/MIN ed glomeru 08:00 lar filtrat ion rate (GF Comment: REFERENCE RANGE: >60 ML/MIN/1.73 SQUARE METERS Comment: If this patient is -Indian, then multiply the Comment: result by 1.210. Serum 04-19-2 = 2.4 1.3-3.2 complet globuli 017 gm/dL ed n 08:00 measure ment (mass/v olume) Serum 04-19-2 = 109 74-106 complet or 017 mg/dL ed plasma 08:00 glucose measure ment (mas Serum 2 = 3.7 3.5-5.1 complet potassi 017 mmoL/L ed um 08:00 measure ment Serum 04-19-2 = 137 136-145 complet sodium 017 mmoL/L ed measure 08:00 ment Serum 11-05-2 = 8 U/L 15-37 complet or 017 ed plasma 08:00 asparta te aminotr ansfera ALT = 9 U/L 12-78 complet (SGPT) 017 ed ser/husam 08:00 s Protein = 4.8 6.4-8.2 complet total 017 gm/dL ed ser/husam 08:00 s Lipase measurement (04-19-2017 08:00) Lipase = 55 73-393 complet measure 017 U/L ed ment 08:00 Blood lactic acid measurement (moles/vol (04-03-2017 09:50) Blood 2 = 1.4 0.4-2.0 complet lactic 017 mmol/L ed acid 09:50 measure ment (moles/ vol Cardiac enzymes (04-03-2017 09:50) Serum = 5.8 0-4.0 complet or 017 U/L ed plasma 09:50 creatin e kinase MB (CK-M Serum = 0.7 0.0-3.6 complet or 017 ng/mL ed plasma 09:50 creatin e kinase MB measu Serum = 12 26-192 complet or 017 U/L ed plasma 09:50 creatin e kinase measure m Serum 2 = 0.04 0.00-0. complet or 017 ng/mL 06 ed plasma 09:50 troponi n i.cardi ac measu Comprehensive metabolic panel (04-03-2017 09:50) Serum 04-03-2 = 0.9 1.1-1.8 complet or 017 ed plasma 09:50 albumin /globul in mass ra Serum 04-03-2 = 2.8 3.4-5.0 complet or 017 gm/dL ed plasma 09:50 albumin measure ment (mas Serum 2 = 94 46-116 complet or 017 U/L ed plasma 09:50 alkalin e phospha tase shari Serum 2 = 1.2 0.2-1.0 complet or 017 mg/dL ed plasma 09:50 total bilirub in measure m Serum 04-03-2 = 18 7-18 complet or 017 mg/dL ed plasma 09:50 urea nitroge n measure men Serum 04-03-2 = 9.0 8.5-10. complet or 017 mg/dL 1 ed plasma 09:50 calcium measure ment (mas Serum 10-20-2 = 95 98-107 complet or 017 mmoL/L ed plasma 09:50 chlorid e measure ment (mo Carbon 10-20-2 = 37 21.0-32 complet dioxide 017 mmoL/L .0 ed 09:50 measure ment Serum 10-20-2 = 0.8 0.55-1. complet or 017 mg/dL 02 ed plasma 09:50 creatin ine measure ment ( Estimat 20-2 = 38 50-200 complet ion of 017 ML/MIN ed creatin 09:50 ine renal clearan ce Estimat 10-20-2 = 69 59- complet ed 017 ML/MIN ed glomeru 09:50 lar filtrat ion rate (GF Comment: REFERENCE RANGE: >60 ML/MIN/1.73 SQUARE METERS Comment: If this patient is -Indian, then multiply the Comment: result by 1.210. Serum 20-2 = 3.2 1.3-3.2 complet globuli 017 gm/dL ed n 09:50 measure ment (mass/v olume) Serum 10-20-2 = 172 74-106 complet or 017 mg/dL ed plasma 09:50 glucose measure ment (mas Serum 04-03-2 = 3.7 3.5-5.1 complet potassi 017 mmoL/L ed um 09:50 measure ment Serum 1020-2 = 133 136-145 complet sodium 017 mmoL/L ed measure 09:50 ment Serum 1020-2 = 17 15-37 complet or 017 U/L ed plasma 09:50 asparta te aminotr ansfera ALT 10--2 = 26 12-78 complet (SGPT) 017 U/L ed ser/husam 09:50 s Protein 10-20-2 = 6.0 6.4-8.2 complet total 017 gm/dL ed ser/husam 09:50 s Digoxin level (04-03-2017 09:50) Digoxin 10-20-2 = 0.80 1.15-2. complet level 017 ng/mL 56 ed 09:50 CBC w auto diff (04-03-2017 09:50) Automat 10-20-2 = 0.0 0-0.2 complet ed 017 K/MM3 ed blood 09:50 basophi l count (count/ vo Baso % 04-03-2 = 0.2 % 0.1-2.0 complet 017 ed 09:50 Automat 20-2 = 0.0 0.0-0.4 complet ed 017 K/mm3 ed blood 09:50 eosinop hil count Automat 2 = 0.1 % 0.1-12. complet ed 017 0 ed blood 09:50 eosinop hils/10 0 leukocy t Blood 04-03-2 = 12.8 1.8-7.8 complet granulo 017 K/mm3 ed cytes 09:50 automat ed count (numb Granulo 2 = 81.7 37.0-80 complet cyte 017 % .0 ed percent 09:50 age Blood = 42.0 37.0-47 complet hematoc 017 % .0 ed rit 09:50 (volume fractio n) Blood = 13.4 12.2-16 complet hemoglo 017 g/dL .2 ed bin 09:50 measure ment (mass/v olum Absolut = 1.4 0.7-4.5 complet e 017 K/mm3 ed lymphoc 09:50 yte count Lymphoc = 8.7 % 10-50.0 complet yte 017 ed count, 09:50 blood, automat ed Mean 04-03-2 = 30.0 27-31.2 complet corpusc 017 pg ed ular 09:50 hemoglo bin (MCH) determ Automat = 31.9 31.8-35 complet ed 017 g/dl .4 ed erythro 09:50 cyte mean corpusc ular h Automat = 93.8 82.2-97 complet ed 017 fl .8 ed erythro 09:50 cyte mean corpusc ular v Absolut 2 = 1.5 0.1-1.0 complet e 017 K/mm3 ed monocyt 09:50 e count [place] % 2 = 9.3 % 1.7-9.3 complet 017 ed 09:50 Automat 04-03-2 = 9.5 7.4-10. complet ed 017 fl 4 ed blood 09:50 platele t mean volume shari Blood = 113 142-424 complet platele 017 K/mm3 ed t count 09:50 Red = 4.48 4.2-5.4 complet blood 017 M/mm3 ed cell 09:50 count Automat = 15.4 11.5-17 complet ed 017 % .5 ed erythro 09:50 cyte distrib ution width Blood = 15.6 4.8-10. complet leukocy 017 K/MM3 8 ed devendra 09:50 count (number /volume ) Differential panel, method unspecified - (04-03-2017 09:50) Automat 2 = 2 % 0-8 complet ed 017 ed blood 09:50 band neutrop hil percent a LYMPH 7 % 10-50 complet 017 ed 09:50 Monocyt = 11 % 2-9 complet e % 017 ed 09:50 Platele SLIGHT complet t 017 DECREAS ed estimat 09:50 E e SLIGHT DECREAS E L Neutrop = 80 % 42-76 complet hil 017 ed count 09:50 Blood = 100 complet total 017 #CELLS ed cell 09:50 count CBC w auto diff (04-02-2017 06:45) Baso % = 0.2 % 0.1-2.0 complet 017 ed 06:45 Automat = 0.0 0-0.2 complet ed 017 K/MM3 ed blood 06:45 basophi l count (count/ vo Automat = 0.0 0.0-0.4 complet ed 017 K/mm3 ed blood 06:45 eosinop hil count Automat = 0.5 % 0.1-12. complet ed 017 0 ed blood 06:45 eosinop hils/10 0 leukocy t Blood = 6.8 1.8-7.8 complet granulo 017 K/mm3 ed cytes 06:45 automat ed count (numb Granulo = 77.4 37.0-80 complet cyte 017 % .0 ed percent 06:45 age Blood = 40.3 37.0-47 complet hematoc 017 % .0 ed rit 06:45 (volume fractio n) Blood = 12.8 12.2-16 complet hemoglo 017 g/dL .2 ed bin 06:45 measure ment (mass/v olum Absolut = 1.0 0.7-4.5 complet e 017 K/mm3 ed lymphoc 06:45 yte count Lymphoc = 10.8 10-50.0 complet yte 017 % ed count, 06:45 blood, automat ed Mean = 29.8 27-31.2 complet corpusc 017 pg ed ular 06:45 hemoglo bin (MCH) determ Automat = 31.4 31.8-35 complet ed 017 g/dl .4 ed erythro 06:45 cyte mean corpusc ular h Automat = 94.7 82.2-97 complet ed 017 fl .8 ed erythro 06:45 cyte mean corpusc ular v Absolut = 1.0 0.1-1.0 complet e 017 K/mm3 ed monocyt 06:45 e count [place] % = 11.1 1.7-9.3 complet 017 % ed 06:45 Automat = 9.3 7.4-10. complet ed 017 fl 4 ed blood 06:45 platele t mean volume shari Blood = 92 142-424 complet platele 017 K/mm3 ed t count 06:45 Red = 4.26 4.2-5.4 complet blood 017 M/mm3 ed cell 06:45 count Automat = 15.5 11.5-17 complet ed 017 % .5 ed erythro 06:45 cyte distrib ution width Blood = 8.8 4.8-10. complet leukocy 017 K/MM3 8 ed devendra 06:45 count (number /volume ) Comprehensive metabolic panel (03-31-2017 06:20) Serum = 1.0 1.1-1.8 complet or 017 ed plasma 06:20 albumin /globul in mass ra Serum = 3.3 3.4-5.0 complet or 017 gm/dL ed plasma 06:20 albumin measure ment (mas Serum = 113 46-116 complet or 017 U/L ed plasma 06:20 alkalin e phospha tase shari Serum = 1.2 0.2-1.0 complet or 017 mg/dL ed plasma 06:20 total bilirub in measure m Serum = 23 7-18 complet or 017 mg/dL ed plasma 06:20 urea nitroge n measure men Serum = 9.6 8.5-10. complet or 017 mg/dL 1 ed plasma 06:20 calcium measure ment (mas Serum = 94 98-107 complet or 017 mmoL/L ed plasma 06:20 chlorid e measure ment (mo Carbon = 39 21.0-32 complet dioxide 017 mmoL/L .0 ed 06:20 measure ment Serum = 0.8 0.55-1. complet or 017 mg/dL 02 ed plasma 06:20 creatin ine measure ment ( Estimat = 40 50-200 complet ion of 017 ML/MIN ed creatin 06:20 ine renal clearan ce Estimat = 69 59- complet ed 017 ML/MIN ed glomeru 06:20 lar filtrat ion rate (GF Comment: REFERENCE RANGE: >60 ML/MIN/1.73 SQUARE METERS Comment: If this patient is -Indian, then multiply the Comment: result by 1.210. Serum = 3.4 1.3-3.2 complet globuli 017 gm/dL ed n 06:20 measure ment (mass/v olume) Serum = 126 74-106 complet or 017 mg/dL ed plasma 06:20 glucose measure ment (mas Serum = 4.6 3.5-5.1 complet potassi 017 mmoL/L ed um 06:20 measure ment Serum = 137 136-145 complet sodium 017 mmoL/L ed measure 06:20 ment Serum = 18 15-37 complet or 017 U/L ed plasma 06:20 asparta te aminotr ansfera ALT = 26 12-78 complet (SGPT) 017 U/L ed ser/husam 06:20 s Protein = 6.7 6.4-8.2 complet total 017 gm/dL ed ser/husam 06:20 s CBC w auto diff (03-31-2017 06:20) Automat = 0.0 0-0.2 complet ed 017 K/MM3 ed blood 06:20 basophi l count (count/ vo Baso % = 0.1 % 0.1-2.0 complet 017 ed 06:20 Automat = 0.1 0.0-0.4 complet ed 017 K/mm3 ed blood 06:20 eosinop hil count Automat = 0.4 % 0.1-12. complet ed 017 0 ed blood 06:20 eosinop hils/10 0 leukocy t Blood = 13.6 1.8-7.8 complet granulo 017 K/mm3 ed cytes 06:20 automat ed count (numb Granulo = 85.3 37.0-80 complet cyte 017 % .0 ed percent 06:20 age Blood = 44.8 37.0-47 complet hematoc 017 % .0 ed rit 06:20 (volume fractio n) Blood = 14.5 12.2-16 complet hemoglo 017 g/dL .2 ed bin 06:20 measure ment (mass/v olum Absolut = 1.1 0.7-4.5 complet e 017 K/mm3 ed lymphoc 06:20 yte count Lymphoc = 6.9 % 10-50.0 complet yte 017 ed count, 06:20 blood, automat ed Mean = 30.6 27-31.2 complet corpusc 017 pg ed ular 06:20 hemoglo bin (MCH) determ Automat = 32.5 31.8-35 complet ed 017 g/dl .4 ed erythro 06:20 cyte mean corpusc ular h Automat = 94.3 82.2-97 complet ed 017 fl .8 ed erythro 06:20 cyte mean corpusc ular v Absolut = 1.2 0.1-1.0 complet e 017 K/mm3 ed monocyt 06:20 e count [place] % = 7.3 % 1.7-9.3 complet 017 ed 06:20 Automat = 9.4 7.4-10. complet ed 017 fl 4 ed blood 06:20 platele t mean volume shari Blood = 132 142-424 complet platele 017 K/mm3 ed t count 06:20 Red = 4.75 4.2-5.4 complet blood 017 M/mm3 ed cell 06:20 count Blood = 16.0 4.8-10. complet leukocy 017 K/MM3 8 ed devendra 06:20 count (number /volume ) Automat = 15.8 11.5-17 complet ed 017 % .5 ed erythro 06:20 cyte distrib ution width Differential panel, method unspecified - (03-31-2017 06:20) Automat 03-31-2 = 3 % 0-8 complet ed 017 ed blood 06:20 band neutrop hil percent a LYMPH 5 % 10-50 complet 017 ed 06:20 Monocyt = 10 % 2-9 complet e % 017 ed 06:20 Platele SLIGHT complet t 017 DECREAS ed estimat 06:20 E e SLIGHT DECREAS E L Neutrop = 82 % 42-76 complet hil 017 ed count 06:20 Blood = 100 complet total 017 #CELLS ed cell 06:20 count Basic metabolic panel (03-30-2017 06:03) Serum = 27 7-18 complet or 017 mg/dL ed plasma 06:03 urea nitroge n measure men Serum = 99 98-107 complet or 017 mmoL/L ed plasma 06:03 chlorid e measure ment (mo Carbon = 34 21.0-32 complet dioxide 017 mmoL/L .0 ed 06:03 measure ment Serum = 0.8 0.55-1. complet or 017 mg/dL 02 ed plasma 06:03 creatin ine measure ment ( Estimat = 40 50-200 complet ion of 017 ML/MIN ed creatin 06:03 ine renal clearan ce Estimat = 69 59- complet ed 017 ML/MIN ed glomeru 06:03 lar filtrat ion rate (GF Comment: REFERENCE RANGE: >60 ML/MIN/1.73 SQUARE METERS Comment: If this patient is -Indian, then multiply the Comment: result by 1.210. Serum = 130 74-106 complet or 017 mg/dL ed plasma 06:03 glucose measure ment ([facility] Serum = 4.4 3.5-5.1 complet potassi 017 mmoL/L ed um 06:03 measure ment Serum = 135 136-145 complet sodium 017 mmoL/L ed measure 06:03 ment Serum = 9.3 8.5-10. complet or 017 mg/dL 1 ed plasma 06:03 calcium measure ment ([facility] CBC w auto diff (03-30-2017 06:03) Automat = 0.0 0-0.2 complet ed 017 K/MM3 ed blood 06:03 basophi l count (count/ vo Baso % = 0.0 % 0.1-2.0 complet 017 ed 06:03 Automat = 0.0 0.0-0.4 complet ed 017 K/mm3 ed blood 06:03 eosinop hil count Automat = 0.2 % 0.1-12. complet ed 017 0 ed blood 06:03 eosinop hils/10 0 leukocy t Blood = 15.6 1.8-7.8 complet granulo 017 K/mm3 ed cytes 06:03 automat ed count (numb Granulo = 87.2 37.0-80 complet cyte 017 % .0 ed percent 06:03 age Blood = 38.0 37.0-47 complet hematoc 017 % .0 ed rit 06:03 (volume fractio n) Blood = 12.1 12.2-16 complet hemoglo 017 g/dL .2 ed bin 06:03 measure ment (mass/v olum Absolut = 1.0 0.7-4.5 complet e 017 K/mm3 ed lymphoc 06:03 yte count Lymphoc 10-16-2 = 5.5 % 10-50.0 complet yte 017 ed count, 06:03 blood, automat ed Mean = 30.1 27-31.2 complet corpusc 017 pg ed ular 06:03 hemoglo bin (MCH) determ Automat = 31.8 31.8-35 complet ed 017 g/dl .4 ed erythro 06:03 cyte mean corpusc ular h Automat = 94.8 82.2-97 complet ed 017 fl .8 ed erythro 06:03 cyte mean corpusc ular v Absolut = 1.2 0.1-1.0 complet e 017 K/mm3 ed monocyt 06:03 e count [place] % = 6.9 % 1.7-9.3 complet 017 ed 06:03 Automat = 10.1 7.4-10. complet ed 017 fl 4 ed blood 06:03 platele t mean volume shari Blood = 113 142-424 complet platele 017 K/mm3 ed t count 06:03 Red = 4.01 4.2-5.4 complet blood 017 M/mm3 ed cell 06:03 count Automat = 16.2 11.5-17 complet ed 017 % .5 ed erythro 06:03 cyte distrib ution width Blood = 17.8 4.8-10. complet leukocy 017 K/MM3 8 ed devendra 06:03 count (number /volume ) Differential panel, method unspecified - (03-30-2017 06:03) Automat = 1 % 0-8 complet ed 017 ed blood 06:03 band neutrop hil percent a Blood LARGE complet manual 017 PLT ed differe 06:03 PRESENT ntial comment interp LYMPH 6 % 10-50 complet 017 ed 06:03 Monocyt = 8 % 2-9 complet e % 017 ed 06:03 Platele SLIGHT complet t 017 DECREAS ed estimat 06:03 E e SLIGHT DECREAS E L Neutrop = 85 % 42-76 complet hil 017 ed count 06:03 Blood = 100 complet total 017 #CELLS ed cell 06:03 count Cardiac enzymes (03-30-2017 06:03) Serum = 10.3 0-4.0 complet or 017 U/L ed plasma 06:03 creatin e kinase MB (CK-M Serum = 3.2 0.0-3.6 complet or 017 ng/mL ed plasma 06:03 creatin e kinase MB measu Serum = 31 26-192 complet or 017 U/L ed plasma 06:03 creatin e kinase measure m Serum = 0.11 0.00-0. complet or 017 [...] Renal failure Acute neurological disease Atrial fib. Whole blood hemoglobin and hematocrit pa (03-28-2017 16:30) Comment: COMMENTS TO PATIENT ASSISTANT: 1 HR POST TRANSFUSION Blood = 35.4 37.0-47 complet hematoc 017 % .0 ed rit 16:30 (volume fractio n) Blood = 11.3 12.2-16 complet hemoglo 017 g/dL .2 ed bin 16:30 measure ment (mass/v olum Leukocyte reduction of packed red blood (03-28-2017 14:00) Leukocy BLOOD complet te 017 UNIT ed reducti 14:00 RELEASE on of BLOOD packed UNIT red RELEASE blood L Comment: BLOOD UNIT # : [id number] RELEASED 03/28/17 1400 Comment: Khurram Guy Comment: Comment: O POSITIVE Leukocyte reduction of packed red blood (03-28-2017 11:20) Leukocy BLOOD complet te 017 UNIT ed reducti 11:20 RELEASE on of BLOOD packed UNIT red RELEASE blood L Comment: Comment: BLOOD UNIT # : [id number] RELEASED 03/28/17 Comment: [employer] Comment: O POS CBC w auto diff (03-28-2017 05:45) Blood = 80 142-424 complet platele 017 K/mm3 ed t count 05:45 Red = 2.71 4.2-5.4 complet blood 017 M/mm3 ed cell 05:45 count Automat = 17.0 11.5-17 complet ed 017 % .5 ed erythro 05:45 cyte distrib ution width Blood = 11.1 4.8-10. complet leukocy 017 K/MM3 8 ed devendra 05:45 count (number /volume ) Automat = 0.0 0-0.2 complet ed 017 K/MM3 ed blood 05:45 basophi l count (count/ vo Baso % = 0.1 % 0.1-2.0 complet 017 ed 05:45 Automat = 0.0 0.0-0.4 complet ed 017 K/mm3 ed blood 05:45 eosinop hil count Automat = 0.2 % 0.1-12. complet ed 017 0 ed blood 05:45 eosinop hils/10 0 leukocy t Blood = 8.9 1.8-7.8 complet granulo 017 K/mm3 ed cytes 05:45 automat ed count (numb Granulo = 80.3 37.0-80 complet cyte 017 % .0 ed percent 05:45 age Blood = 25.7 37.0-47 complet hematoc 017 % .0 ed rit 05:45 (volume fractio n) Blood = 7.9 12.2-16 complet hemoglo 017 g/dL .2 ed bin 05:45 measure ment (mass/v olum Comment: CRITICAL RESULTS Comment: RESULTS CALLED TO: HEMAL 03/28/17 0627 [employer] Absolut = 1.3 0.7-4.5 complet e 017 K/mm3 ed lymphoc 05:45 yte count Lymphoc = 12.1 10-50.0 complet yte 017 % ed count, 05:45 blood, automat ed Mean = 29.2 27-31.2 complet corpusc 017 pg ed ular 05:45 hemoglo bin ([facility]) determ Automat = 30.8 31.8-35 complet ed 017 g/dl .4 ed erythro 05:45 cyte mean corpusc ular h Automat = 94.9 82.2-97 complet ed 017 fl .8 ed erythro 05:45 cyte mean corpusc ular v Absolut = 0.8 0.1-1.0 complet e 017 K/mm3 ed monocyt 05:45 e count [place] % = 7.3 % 1.7-9.3 complet 017 ed 05:45 Automat = 11.1 7.4-10. complet ed 017 fl 4 ed blood 05:45 platele t mean volume shari Basic metabolic panel (03-28-2017 05:45) Serum = 26 7-18 complet or 017 mg/dL ed plasma 05:45 urea nitroge n measure men Serum = 9.0 8.5-10. complet or 017 mg/dL 1 ed plasma 05:45 calcium measure ment (mas Serum = 101 98-107 complet or 017 mmoL/L ed plasma 05:45 chlorid e measure ment (mo Carbon = 31 21.0-32 complet dioxide 017 mmoL/L .0 ed 05:45 measure ment Serum = 0.7 0.55-1. complet or 017 mg/dL 02 ed plasma 05:45 creatin ine measure ment ( Estimat = 46 50-200 complet ion of 017 ML/MIN ed creatin 05:45 ine renal clearan ce Estimat = 81 59- complet ed 017 ML/MIN ed glomeru 05:45 lar filtrat ion rate (GF Comment: REFERENCE RANGE: >60 ML/MIN/1.73 SQUARE METERS Comment: If this patient is -Indian, then multiply the Comment: result by 1.210. Serum = 176 74-106 complet or 017 mg/dL ed plasma 05:45 glucose measure ment (mas Serum = 4.4 3.5-5.1 complet potassi 017 mmoL/L ed um 05:45 measure ment Serum 03-28-2 = 136 136-145 complet sodium 017 mmoL/L ed measure 05:45 ment Cardiac enzymes (03-27-2017 11:00) Serum 03-27-2 = 6.9 0-4.0 complet or 017 U/L ed plasma 11:00 creatin e kinase MB (CK-M Serum 2 = 2.0 0.0-3.6 complet or 017 ng/mL ed plasma 11:00 creatin e kinase MB measu Serum = 29 26-192 complet or 017 U/L ed plasma 11:00 creatin e kinase measure m Serum = 0.41 0.00-0. complet or 017 [...] failure Acute neurological disease Atrial fib. Serum or plasma thyroid stimulating horm (03-27-2017 09:10) Serum 03-27-2 = 0.90 0.358-3 complet or 017 uIU/ml .740 ed plasma 09:10 thyroid stimula ting horm Vitamin B12 ser/plas (03-27-2017 09:10) Vitamin 03-27-2 = 364 211-946 complet B12 017 pg/mL ed ser/husam 09:10 s Comment: Performed at: [facility] Comment: [id number], [place] [id number] Comment: Senior Data Mining Analyst: Shahriar Mena PhD, Phone: [phone] Cardiac enzymes (03-27-2017 07:55) Serum 03-27-2 = 7.3 0-4.0 complet or 017 U/L ed plasma 07:55 creatin e kinase MB (CK-M Serum = 1.1 0.0-3.6 complet or 017 ng/mL ed plasma 07:55 creatin e kinase MB measu Serum = 15 26-192 complet or 017 U/L ed plasma 07:55 creatin e kinase measure m Serum = 0.12 0.00-0. complet or 017 ng/mL [...] Renal failure Acute neurological disease Atrial fib. Blood type and crossmatch (03-27-2017 05:35) Materna NEGATIV NEGATIV complet l 017 E E ed antibod 05:35 NEGATIV y E L screen Rh POSITIV complet blood 017 E ed group 05:35 POSITIV typing E L Blood O O L complet ABO 017 ed group 05:35 typing Crossmatch (03-27-2017 05:35) Comment: Hold? N Comment: Transfuse now? 2 UNITS NOW Interpr COMPAT complet etation 017 COMPAT ed of 05:35 L major crossma tch resul Immedia COMPAT complet te spin 017 COMPAT ed 05:35 L crossma tch Blood lactic acid measurement (moles/vol (03-27-2017 03:41) Blood = 1.6 0.4-2.0 complet lactic 017 mmol/L ed acid 03:41 measure ment (moles/ vol Arterial blood gas (03-27-2017 03:25) Chidi's ACCEPTA complet test 017 BLE ed before 03:25 ACCEPTA arteria BLE L l blood gas Arteria = 30.0 22.0-26 complet l blood 017 MMOL/L .0 ed 03:25 [place] flor measure ment ( Arteria = 32% complet l blood 017 ed total 03:25 oxygen content oneyda Arteria = 40.7 35.0-45 complet l blood 017 MMHG .0 ed 03:25 partial pressur e of carbo Arteria = 7.49 7.35-7. complet l blood 017 MMOL/L 45 ed pH 03:25 measure ment Arteria = 112.7 80-100 complet l whole 017 MMHG ed blood 03:25 PO2 at POC Arteria = 98.2 90-100 complet l blood 017 % ed oxygen 03:25 saturat ion calcula Arteria = 31.3 23-27 complet l blood 017 MMOL/L ed carbon 03:25 dioxide , total shari Arteria = 6.6 -2.4-+2 complet l blood 017 MMOL/L .3 ed base 03:25 excess determi nation CBC w auto diff (03-27-2017 03:00) Baso % = 0.7 % 0.1-2.0 complet 017 ed 03:00 Automat = 0.2 % 0.1-12. complet ed 017 0 ed blood 03:00 eosinop hils/10 0 leukocy t Blood = 5.7 1.8-7.8 complet granulo 017 K/mm3 ed cytes 03:00 automat ed count (numb Granulo = 63.0 37.0-80 complet cyte 017 % .0 ed percent 03:00 age Blood = 27.0 37.0-47 complet hematoc 017 % .0 ed rit 03:00 (volume fractio n) Blood = 8.6 12.2-16 complet hemoglo 017 g/dL .2 ed bin 03:00 measure ment (mass/v olum Absolut = 2.0 0.7-4.5 complet e 017 K/mm3 ed lymphoc 03:00 yte count Lymphoc = 21.9 10-50.0 complet yte 017 % ed count, 03:00 blood, automat ed Mean = 29.4 27-31.2 complet corpusc 017 pg ed ular 03:00 hemoglo bin (MCH) determ Automat = 31.9 31.8-35 complet ed 017 g/dl .4 ed erythro 03:00 cyte mean corpusc ular h Automat = 92.1 82.2-97 complet ed 017 fl .8 ed erythro 03:00 cyte mean corpusc ular v Absolut = 1.3 0.1-1.0 complet e 017 K/mm3 ed monocyt 03:00 e count [place] % = 14.2 1.7-9.3 complet 017 % ed 03:00 Automat 2 = 10.6 7.4-10. complet ed 017 fl 4 ed blood 03:00 platele t mean volume shari Blood = 93 142-424 complet platele 017 K/mm3 ed t count 03:00 Red = 2.94 4.2-5.4 complet blood 017 M/mm3 ed cell 03:00 count Automat = 16.5 11.5-17 complet ed 017 % .5 ed erythro 03:00 cyte distrib ution width Blood = 9.1 4.8-10. complet leukocy 017 K/MM3 8 ed devendra 03:00 count (number /volume ) Automat = 0.1 0-0.2 complet ed 017 K/MM3 ed blood 03:00 basophi l count (count/ vo Automat = 0.0 0.0-0.4 complet ed 017 K/mm3 ed blood 03:00 eosinop hil count Brain natriuretic peptide (03-27-2017 03:00) Brain = 289 0-100 complet natriur 017 pg/mL ed etic 03:00 peptide Cardiac enzymes (03-27-2017 03:00) Serum = 4.3 0-4.0 complet or 017 U/L ed plasma 03:00 creatin e kinase MB (CK-M Serum = 0.6 0.0-3.6 complet or 017 ng/mL ed plasma 03:00 creatin e kinase MB measu Serum = 14 26-192 complet or 017 U/L ed plasma 03:00 creatin e kinase measure m Serum < 0.02 0.00-0. complet or 017 ng/mL 06 ed plasma 03:00 troponi n i.cardi ac measu Comprehensive metabolic panel (03-27-2017 03:00) Protein = 6.2 6.4-8.2 complet total 017 gm/dL ed ser/husam 03:00 s Serum 03-27-2 = 0.9 1.1-1.8 complet or 017 ed plasma 03:00 albumin /globul in mass ra Serum 03-27-2 = 2.9 3.4-5.0 complet or 017 gm/dL ed plasma 03:00 albumin measure ment (mas Serum 03-27-2 = 79 46-116 complet or 017 U/L ed plasma 03:00 alkalin e phospha tase shari Serum 03-27-2 = 0.9 0.2-1.0 complet or 017 mg/dL ed plasma 03:00 total bilirub in measure m Serum 03-27-2 = 15 7-18 complet or 017 mg/dL ed plasma 03:00 urea nitroge n measure men Serum 03-27-2 = 9.0 8.5-10. complet or 017 mg/dL 1 ed plasma 03:00 calcium measure ment (mas Serum 2 = 97 98-107 complet or 017 mmoL/L ed plasma 03:00 chlorid e measure ment (mo Carbon 03-27-2 = 32 21.0-32 complet dioxide 017 mmoL/L .0 ed 03:00 measure ment Serum 03-27-2 = 0.7 0.55-1. complet or 017 mg/dL 02 ed plasma 03:00 creatin ine measure ment ( Estimat 03-27-2 = 31 50-200 complet ion of 017 ML/MIN ed creatin 03:00 ine renal clearan ce Estimat 2 = 77 59- complet ed 017 ML/MIN ed glomeru 03:00 lar filtrat ion rate (GF Comment: REFERENCE RANGE: >60 ML/MIN/1.73 SQUARE METERS Comment: If this patient is -Indian, then multiply the Comment: result by 1.210. Serum 03-27-2 = 3.3 1.3-3.2 complet globuli 017 gm/dL ed n 03:00 measure ment (mass/v olume) Serum 03-27-2 = 140 74-106 complet or 017 mg/dL ed plasma 03:00 glucose measure ment (mas Serum 03-27-2 = 3.4 3.5-5.1 complet potassi 017 mmoL/L ed um 03:00 measure ment Serum 10-13-2 = 134 136-145 complet sodium 017 mmoL/L ed measure 03:00 ment Serum = 11 15-37 complet or 017 U/L ed plasma 03:00 asparta te aminotr ansfera ALT = 10 12-78 complet (SGPT) 017 U/L ed ser/husam 03:00 s Bas Metab 1999 Pnl SerPl (09-07-2016 05:42) Glucose 110 70-100 complet 017 mg/dL ed Bld-mCn 05:42 c BUN 22 9-23 complet Bld-mCn 017 mg/dL ed c 05:42 Creat 0.60 0.60-1. complet Bld-mCn 017 mg/dL 30 ed c 05:42 Sodium 132 132-146 complet Bld-sCn 017 mmol/L ed c 05:42 Potassi 4.0 3.5-5.5 complet um 017 mmol/L ed Bld-sCn 05:42 c Chlorid 92 99-109 complet e 017 mmol/L ed SerPl-s 05:42 Cnc CO2 32.0 20.0-31 complet SerPl-s 017 mmol/L .0 ed Cnc 05:42 Calcium 9.5 8.7-10. complet 017 mg/dL 4 ed XXX-sCn 05:42 c GFR/BSA 97 >60 complet .pred 017 mL/min/ ed SerPl 05:42 1.73 MDRD-Ar VRat BUN/Cre 36.7 7.0-25. complet at 017 0 ed SerPl 05:42 Anion 8.0 3.0-11. complet Gap3 017 mmol/L 0 ed SerPl-s 05:42 Cnc TSH SerPl (09-05-2016 05:07) TSH 0.431 0.350-5 complet SerPl 017 mIU/mL .350 ed DL<=0.0 05:07 5 mIU/L-a Cnc Bas Metab 1999 Pnl SerPl (09-05-2016 05:07) Glucose 151 70-100 complet 017 mg/dL ed Bld-mCn 05:07 c BUN 24 9-23 complet Bld-mCn 017 mg/dL ed c 05:07 Creat 0.80 0.60-1. complet Bld-mCn 017 mg/dL 30 ed c 05:07 Sodium 130 132-146 complet Bld-sCn 017 mmol/L ed c 05:07 Potassi 3.8 3.5-5.5 complet um 017 mmol/L ed Bld-sCn 05:07 c Chlorid 90 99-109 complet e 017 mmol/L ed SerPl-s 05:07 Cnc CO2 33.0 20.0-31 complet SerPl-s 017 mmol/L .0 ed Cnc 05:07 Calcium 8.7 8.7-10. complet 017 mg/dL 4 ed XXX-sCn 05:07 c GFR/BSA 70 >60 complet .pred 017 mL/min/ ed SerPl 05:07 1.73 MDRD-Ar VRat BUN/Cre 30.0 7.0-25. complet at 017 0 ed SerPl 05:07 Anion 7.0 3.0-11. complet Gap3 017 mmol/L 0 ed SerPl-s 05:07 Cnc Mg Ionized SerPl-mCnc (09-05-2016 01:38) Magnesi 1.7 1.3-2.7 complet um 017 mg/dL ed SerPl-m 01:38 Cnc Troponin T SerPl Ql (09-04-2016 23:18) Troponi 0.04 0.00-0. complet n I 017 ng/mL 07 ed SerPl-m 23:18 Cnc Gas Pnl BldA (09-04-2016 21:25) Bdy Arteria complet site 017 l: ed 21:25 right brachia l Arteria [id number] complet l 017 09 Not ed patency 21:25 applica Wrist ble SCT a pH BldA 7.456 7.350-7 complet 017 pH .450 ed 21:25 units pCO2 44.3 mm 35.0-45 complet BldA 017 Hg .0 ed 21:25 pO2 03-23-2 282.0 83.0-10 complet BldA 017 mm Hg 8.0 ed 21:25 HCO3 -23-2 31.2 20.0-26 complet BldA-sC 017 mmol/L .0 ed nc 21:25 Base -23-2 6.7 0.0-2.0 complet excess 017 mmol/L ed BldA 21:25 Calc-sC nc SaO2 % 09-04-2 98.8 % complet BldCoA 017 ed 21:25 Hgb -23-2 12.7 14-18 complet BldA-mC 017 g/dL ed nc 21:25 Hct VFr 09-04-2 38.9 % complet Bld 017 ed 21:25 OxyHgb 09-04-2 98.8 % 94-99 complet MFr 017 ed BldV 21:25 MetHgb 23-2 0.7 % 0-1.5 complet Bld Ql 017 ed 21:25 COHgb 23-2 0.7 % 0-2 complet MFr Bld 017 ed 21:25 CO2 23-2 32.6 22-33 complet BldA-sC 017 ed nc 21:25 [place] 09-04-2 100 % complet z index 017 ed 21:25 Bld+IhG -Rto Haem influ B Ag XXX Ql (09-04-2016 21:24) FLUAV [id number] Negativ complet Ag Nph 017 09 e ed Ql 21:24 Negativ e SCT FLUBV [id number] Negativ complet Ag Nph 017 09 e ed Ql EIA 21:24 Negativ e SCT Lactate SerPl-sCnc (09-04-2016 21:22) D-Lacta 1.3 0.5-2.0 complet te 017 mmol/L ed SerPl-s 21:22 Cnc Bacteria Bld Cult (09-04-2016 21:22) Bacteri No complet a XXX 017 growth ed Aerobe 21:22 at 5 Cult days Troponin T SerPl Ql (09-04-2016 21:13) Troponi 0.02 0.00-0. complet n I 017 ng/mL 07 ed SerPl-m 21:13 Cnc CBC W Diff pnl,unspecified Bld (09-04-2016 21:06) WBC -23-2 8.88 3.50-10 complet nRBC 017 10*3/mm .80 ed cor # 21:06 3 Bld RBC # 03-23-2 4.11 3.89-5. complet Bld 017 10*6/mm 14 ed Auto 21:06 3 Hgb 23-2 12.7 11.5-15 complet Bld-mCn 017 g/dL .5 ed c 21:06 Hct VFr 23-2 38.8 % 34.5-44 complet Bld 017 .0 ed Auto 21:06 MCV RBC 23-2 94.4 fL 80.0-99 complet Auto 017 .0 ed 21:06 MCH RBC 23-2 30.9 pg 27.0-31 complet Qn 017 .0 ed Auto 21:06 MCHC 23-2 32.7 32.0-36 complet RBC 017 g/dL .0 ed Auto-mC 21:06 nc RDW RBC 23-2 12.9 % 11.3-14 complet 017 .5 ed Auto-Rt 21:06 o RDW RBC 23-2 45.0 fl 37.0-54 complet Auto 017 .0 ed 21:06 PMV Bld 09-04-2 10.5 fL 6.0-12. complet Auto 017 0 ed 21:06 Platele 23-2 186 150-450 complet t # Bld 017 10*3/mm ed Auto 21:06 3 Neutrop 23-2 81.1 % 41.0-71 complet hils 017 .0 ed NFr Bld 21:06 Auto Lymphoc -23-2 3.7 % 24.0-44 complet ytes 017 .0 ed NFr Bld 21:06 Auto Monocyt 23-2 14.9 % 0.0-12. complet es NFr 017 0 ed Bld 21:06 Auto Eosinop -23-2 0.0 % 0.0-3.0 complet hil NFr 017 ed Bld 21:06 Auto Basophi -23-2 0.1 % 0.0-1.0 complet ls NFr 017 ed Bld 21:06 Auto Imm 03-23-2 0.2 % 0.0-0.6 complet Granulo 017 ed cytes 21:06 NFr Bld Neutrop 23-2 7.20 1.50-8. complet hils # 017 10*3/mm 30 ed Bld 21:06 3 Auto Lymphoc -23-2 0.33 0.60-4. complet ytes # 017 10*3/mm 80 ed Bld 21:06 3 Auto Monocyt 23-2 1.32 0.00-1. complet es # 017 10*3/mm 00 ed Bld 21:06 3 Auto Eosinop 23-2 0.00 0.10-0. complet hil # 017 10*3/mm 30 ed Bld 21:06 3 Auto Basophi 23-2 0.01 0.00-0. complet ls # 017 10*3/mm 20 ed Bld 21:06 3 Auto Imm 23-2 0.02 0.00-0. complet Granulo 017 10*3/mm 03 ed cytes # 21:06 3 Bld PT PPP (09-04-2016 21:06) PT PPP 09-04-2 16.8 9.6-11. complet 017 Seconds 5 ed 21:06 INR PPP 09-04-2 1.52 complet 017 ed 21:06 aPTT PPP (09-04-2016 21:06) aPTT 09-04-2 38.2 24.0-31 complet PPP 017 seconds .0 ed 21:06 BNP SerPl-mCnc (09-04-2016 21:06) BNP 09-04-2 285.0 0.0-100 complet SerPl-m 017 pg/mL .0 ed Cnc 21:06 Comp Metab 1998 Pnl SerPl (09-04-2016 21:06) Glucose 104 70-100 complet 017 mg/dL ed Bld-mCn 21:06 c BUN 09-04-2 22 9-23 complet Bld-mCn 017 mg/dL ed c 21:06 Creat 09-04-2 0.80 0.60-1. complet Bld-mCn 017 mg/dL 30 ed c 21:06 Sodium 09-04- 126 132-146 complet Bld-sCn 017 mmol/L ed c 21:06 Potassi 03-23-2 3.9 3.5-5.5 complet um 017 mmol/L ed Bld-sCn 21:06 c Chlorid 85 99-109 complet e 017 mmol/L ed SerPl-s 21:06 Cnc CO2 28.0 20.0-31 complet SerPl-s 017 mmol/L .0 ed Cnc 21:06 Calcium 9.6 8.7-10. complet 017 mg/dL 4 ed XXX-sCn 21:06 c Prot 6.9 5.7-8.2 complet SerPl-m 017 g/dL ed Cnc 21:06 Albumin 3.90 3.20-4. complet 017 g/dL 80 ed SerPl-m 21:06 Cnc ALT 28 U/L 7-40 complet SerPl w 017 ed 21:06 P-5'-P- cCnc AST 42 U/L 0-33 complet SerPl-c 017 ed Cnc 21:06 ALP 60 U/L 25-100 complet SerPl-c 017 ed Cnc 21:06 Bilirub 0.4 0.3-1.2 complet 017 mg/dL ed SerPl-m 21:06 Cnc GFR/BSA 70 >60 complet .pred 017 mL/min/ ed SerPl 21:06 1.73 MDRD-Ar VRat Globuli 3.0 complet n Ur 017 gm/dL ed Elph-mC 21:06 nc Albumin 1.3 1.5-2.5 complet /Glob 017 g/dL ed SerPl 21:06 BUN/Cre 27.5 7.0-25. complet at 017 0 ed SerPl 21:06 Anion 13.0 3.0-11. complet Gap3 017 mmol/L 0 ed SerPl-s 21:06 Cnc Digoxin>12h p dose SerPl-mCma (09-04-2016 21:06) Digoxin < 0.01 0.80-2. complet 017 ng/mL 00 ed SerPl-m 21:06 Cnc Mg Ionized SerPl-[facility] (07-02-2016 12:56) Magnesi 2.0 1.3-2.7 complet um 017 mg/dL ed SerPl-m 12:56 Cnc Bas Metab 1999 Pnl SerPl (07-02-2016 12:56) Glucose 18-2 149 70-100 complet 017 mg/dL ed Bld-mCn 12:56 c BUN 18-2 30 9-23 complet Bld-mCn 017 mg/dL ed c 12:56 Creat 182 0.90 0.60-1. complet Bld-mCn 017 mg/dL 30 ed c 12:56 Sodium 18-2 142 132-146 complet Bld-sCn 017 mmol/L ed c 12:56 Potassi 3.8 3.5-5.5 complet um 017 mmol/L ed Bld-sCn 12:56 c Chlorid 18 94 99-109 complet e 017 mmol/L ed SerPl-s 12:56 Cnc CO2 41.0 20.0-31 complet SerPl-s 017 mmol/L .0 ed Cnc 12:56 Calcium 10.5 8.7-10. complet 017 mg/dL 4 ed XXX-sCn 12:56 c GFR/BSA 18 61 >60 complet .pred 017 mL/min/ ed SerPl 12:56 1.73 MDRD-Ar VRat BUN/Cre 33.3 7.0-25. complet at 017 0 ed SerPl 12:56 Anion 7.0 3.0-11. complet Gap3 017 mmol/L 0 ed SerPl-s 12:56 Cnc Bas Metab 1999 Pnl SerPl (07-02-2016 06:34) Glucose 18-2 98 70-100 complet 017 mg/dL ed Bld-mCn 06:34 c BUN 18-2 33 9-23 complet Bld-mCn 017 mg/dL ed c 06:34 Creat 2 0.90 0.60-1. complet Bld-mCn 017 mg/dL 30 ed c 06:34 Sodium 18-2 140 132-146 complet Bld-sCn 017 mmol/L ed c 06:34 Potassi 4.6 3.5-5.5 complet um 017 mmol/L ed Bld-sCn 06:34 c Chlorid 94 99-109 complet e 017 mmol/L ed SerPl-s 06:34 Cnc CO2 39.0 20.0-31 complet SerPl-s 017 mmol/L .0 ed Cnc 06:34 Calcium 10.2 8.7-10. complet 017 mg/dL 4 ed XXX-sCn 06:34 c GFR/BSA 61 >60 complet .pred 017 mL/min/ ed SerPl 06:34 1.73 MDRD-Ar VRat BUN/Cre 36.7 7.0-25. complet at 017 0 ed SerPl 06:34 Anion 7.0 3.0-11. complet Gap3 017 mmol/L 0 ed SerPl-s 06:34 Cnc Bas Metab 2000 Pnl SerPl (07-01-2016 20:29) Glucose 139 70-130 complet BldC 017 mg/dL ed Glucomt 20:29 r-mCnc CBC (hemogram) Bld Auto (07-01-2016 05:31) RBC # 3.65 3.89-5. complet Bld 017 10*6/mm 14 ed Auto 05:31 3 Hgb 11.1 11.5-15 complet Bld-mCn 017 g/dL .5 ed c 05:31 Hct VFr 35.3 % 34.5-44 complet Bld 017 .0 ed Auto 05:31 MCV RBC 96.7 fL 80.0-99 complet Auto 017 .0 ed 05:31 MCH RBC 30.4 pg 27.0-31 complet Qn 017 .0 ed Auto 05:31 MCHC 31.4 32.0-36 complet RBC 017 g/dL .0 ed Auto-mC 05:31 nc RDW RBC 12.7 % 11.3-14 complet 017 .5 ed Auto-Rt 05:31 o RDW RBC 45.3 fl 37.0-54 complet Auto 017 .0 ed 05:31 PMV Bld 10.9 fL 6.0-12. complet Auto 017 0 ed 05:31 Platele 213 150-450 complet t # Bld 017 10*3/mm ed Auto 05:31 3 WBC 12.19 3.50-10 complet nRBC 017 10*3/mm .80 ed cor # 05:31 3 Bld Bas Metab 1999 Pnl SerPl (07-01-2016 05:31) Glucose 126 70-100 complet 017 mg/dL ed Bld-mCn 05:31 c BUN 28 9-23 complet Bld-mCn 017 mg/dL ed c 05:31 Creat 0.60 0.60-1. complet Bld-mCn 017 mg/dL 30 ed c 05:31 Sodium 135 132-146 complet Bld-sCn 017 mmol/L ed c 05:31 Potassi 4.2 3.5-5.5 complet um 017 mmol/L ed Bld-sCn 05:31 c Chlorid 99 99-109 complet e 017 mmol/L ed SerPl-s 05:31 Cnc CO2 28.0 20.0-31 complet SerPl-s 017 mmol/L .0 ed Cnc 05:31 Calcium 9.8 8.7-10. complet 017 mg/dL 4 ed XXX-sCn 05:31 c GFR/BSA 97 >60 complet .pred 017 mL/min/ ed SerPl 05:31 1.73 MDRD-Ar VRat BUN/Cre 46.7 7.0-25. complet at 017 0 ed SerPl 05:31 Anion 8.0 3.0-11. complet Gap3 017 mmol/L 0 ed SerPl-s 05:31 Cnc Bas Metab 1999 Pnl SerPl (06-30-2016 05:34) Glucose 151 70-100 complet 017 mg/dL ed Bld-mCn 05:34 c BUN 24 9-23 complet Bld-mCn 017 mg/dL ed c 05:34 Creat 0.80 0.60-1. complet Bld-mCn 017 mg/dL 30 ed c 05:34 Sodium 142 132-146 complet Bld-sCn 017 mmol/L ed c 05:34 Potassi 4.5 3.5-5.5 complet um 017 mmol/L ed Bld-sCn 05:34 c Chlorid 98 99-109 complet e 017 mmol/L ed SerPl-s 05:34 Cnc CO2 36.0 20.0-31 complet SerPl-s 017 mmol/L .0 ed Cnc 05:34 Calcium 10.3 8.7-10. complet 017 mg/dL 4 ed XXX-sCn 05:34 c GFR/BSA 70 >60 complet .pred 017 mL/min/ ed SerPl 05:34 1.73 MDRD-Ar VRat BUN/Cre 30.0 7.0-25. complet at 017 0 ed SerPl 05:34 Anion 8.0 3.0-11. complet Gap3 017 mmol/L 0 ed SerPl-s 05:34 Cnc CBC (hemogram) Bld Auto (06-30-2016 05:34) WBC 17.00 3.50-10 complet nRBC 017 10*3/mm .80 ed cor # 05:34 3 Bld RBC # 06-30- 3.60 3.89-5. complet Bld 017 10*6/mm 14 ed Auto 05:34 3 Hgb 11.0 11.5-15 complet Bld-mCn 017 g/dL .5 ed c 05:34 Hct VFr 34.8 % 34.5-44 complet Bld 017 .0 ed Auto 05:34 MCV RBC 96.7 fL 80.0-99 complet Auto 017 .0 ed 05:34 MCH RBC 30.6 pg 27.0-31 complet Qn 017 .0 ed Auto 05:34 MCHC 31.6 32.0-36 complet RBC 017 g/dL .0 ed Auto-mC 05:34 nc RDW RBC 13.0 % 11.3-14 complet 017 .5 ed Auto-Rt 05:34 o RDW RBC 45.5 fl 37.0-54 complet Auto 017 .0 ed 05:34 PMV Bld 11.0 fL 6.0-12. complet Auto 017 0 ed 05:34 Platele 233 150-450 complet t # Bld 017 10*3/mm ed Auto 05:34 3 Bas Metab 2000 Pnl SerPl (06-29-2016 17:17) Glucose 142 70-130 complet BldC 017 mg/dL ed Glucomt 17:17 r-mCnc CBC (hemogram) Bld Auto (06-29-2016 07:29) WBC 28.09 3.50-10 complet nRBC 017 10*3/mm .80 ed cor # 07:29 3 Bld RBC # 4.04 3.89-5. complet Bld 017 10*6/mm 14 ed Auto 07:29 3 Hgb 12.6 11.5-15 complet Bld-mCn 017 g/dL .5 ed c 07:29 Hct VFr 38.8 % 34.5-44 complet Bld 017 .0 ed Auto 07:29 MCV RBC 96.0 fL 80.0-99 complet Auto 017 .0 ed 07:29 MCH RBC 31.2 pg 27.0-31 complet Qn 017 .0 ed Auto 07:29 MCHC 32.5 32.0-36 complet RBC 017 g/dL .0 ed Auto-mC 07:29 nc RDW RBC 06-29- 12.9 % 11.3-14 complet 017 .5 ed Auto-Rt 07:29 o RDW RBC 45.1 fl 37.0-54 complet Auto 017 .0 ed 07:29 PMV Bld 10.9 fL 6.0-12. complet Auto 017 0 ed 07:29 Platele 261 150-450 complet t # Bld 017 10*3/mm ed Auto 07:29 3 CBC W Diff pnl,unspecified Bld (06-28-2016 08:05) RBC # 14-2 3.93 3.89-5. complet Bld 017 10*6/mm 14 ed Auto 08:05 3 Hgb 12.1 11.5-15 complet Bld-mCn 017 g/dL .5 ed c 08:05 Hct VFr 37.5 % 34.5-44 complet Bld 017 .0 ed Auto 08:05 MCV RBC 95.4 fL 80.0-99 complet Auto 017 .0 ed 08:05 MCH RBC 30.8 pg 27.0-31 complet Qn 017 .0 ed Auto 08:05 MCHC 32.3 32.0-36 complet RBC 017 g/dL .0 ed Auto-mC 08:05 nc RDW RBC 12.5 % 11.3-14 complet 017 .5 ed Auto-Rt 08:05 o RDW RBC 44.2 fl 37.0-54 complet Auto 017 .0 ed 08:05 PMV Bld 10.2 fL 6.0-12. complet Auto 017 0 ed 08:05 Platele 193 150-450 complet t # Bld 017 10*3/mm ed Auto 08:05 3 Neutrop 87.3 % 41.0-71 complet hils 017 .0 ed NFr Bld 08:05 Auto Lymphoc 8.4 % 24.0-44 complet ytes 017 .0 ed NFr Bld 08:05 Auto Monocyt 4.1 % 0.0-12. complet es NFr 017 0 ed Bld 08:05 Auto Eosinop 0.0 % 0.0-3.0 complet hil NFr 017 ed Bld 08:05 Auto Basophi 0.0 % 0.0-1.0 complet ls NFr 017 ed Bld 08:05 Auto Imm 0.2 % 0.0-0.6 complet Granulo 017 ed cytes 08:05 NFr Bld Neutrop 11.25 1.50-8. complet hils # 017 10*3/mm 30 ed Bld 08:05 3 Auto Lymphoc 01-14-2 1.08 0.60-4. complet ytes # 017 10*3/mm 80 ed Bld 08:05 3 Auto Monocyt 0.53 0.00-1. complet es # 017 10*3/mm 00 ed Bld 08:05 3 Auto Eosinop 0.00 0.10-0. complet hil # 017 10*3/mm 30 ed Bld 08:05 3 Auto Basophi 0.00 0.00-0. complet ls # 017 10*3/mm 20 ed Bld 08:05 3 Auto Imm 0.03 0.00-0. complet Granulo 017 10*3/mm 03 ed cytes # 08:05 3 Bld WBC 12.89 3.50-10 complet nRBC 017 10*3/mm .80 ed cor # 08:05 3 Bld Comp Metab 1998 Pnl SerPl (06-28-2016 08:05) GFR/BSA 81 >60 complet .pred 017 mL/min/ ed SerPl 08:05 1.73 MDRD-Ar VRat Albumin 1.2 1.5-2.5 complet /Glob 017 g/dL ed SerPl 08:05 BUN/Cre 24.3 7.0-25. complet at 017 0 ed SerPl 08:05 Anion 12.0 3.0-11. complet Gap3 017 mmol/L 0 ed SerPl-s 08:05 Cnc Glucose 162 70-100 complet 017 mg/dL ed Bld-mCn 08:05 c BUN 17 9-23 complet Bld-mCn 017 mg/dL ed c 08:05 Creat 0.70 0.60-1. complet Bld-mCn 017 mg/dL 30 ed c 08:05 Sodium 138 132-146 complet Bld-sCn 017 mmol/L ed c 08:05 Potassi 3.9 3.5-5.5 complet um 017 mmol/L ed Bld-sCn 08:05 c Chlorid 96 99-109 complet e 017 mmol/L ed SerPl-s 08:05 Cnc CO2 30.0 20.0-31 complet SerPl-s 017 mmol/L .0 ed Cnc 08:05 Calcium 10.4 8.7-10. complet 017 mg/dL 4 ed XXX-sCn 08:05 c Prot 7.4 5.7-8.2 complet SerPl-m 017 g/dL ed Cnc 08:05 Albumin 4.10 3.20-4. complet 017 g/dL 80 ed SerPl-m 08:05 Cnc ALT 17 U/L 7-40 complet SerPl w 017 ed 08:05 P-5'-P- cCnc AST 20 U/L 0-33 complet SerPl-c 017 ed Cnc 08:05 ALP 61 U/L 25-100 complet SerPl-c 017 ed Cnc 08:05 Bilirub 0.5 0.3-1.2 complet 017 mg/dL ed SerPl-m 08:05 Cnc Globuli 3.3 complet n Ur 017 gm/dL ed Elph- 08:05 nc Lipid pnl with direct LDL SerPl (06-28-2016 08:05) Cholest 161 0-200 complet 017 mg/dL ed SerPl-m 08:05 Cnc Trigl 47 0-150 complet SerPl-m 017 mg/dL ed Cnc 08:05 HDLc 66 40-60 complet SerPl-m 017 mg/dL ed Cnc 08:05 Articho 76 0-130 complet ke IgE 017 mg/dL ed Qn 08:05 Troponin I SerPl-mCnc (06-27-2016 22:35) Troponi 0.164 <=0.040 complet n I 017 ng/mL ed SerPl-m 22:35 Cnc UA Dipstick Pnl Ur (06-27-2016 22:09) Color [id number] Yellow, complet Ur 017 09 Straw ed 22:09 Yellow color SCT Clarity [id number] Clear complet Ur 017 5 ed 22:09 Cloudy SCT pH Ur 5.5 5.0-8.0 complet Strip.a 017 ed uto 22:09 Sp Gr 1.018 1.001-1 complet Ur 017 .030 ed Strip 22:09 Glucose [id number] Negativ complet Ur 017 09 e ed Strip-m 22:09 Negativ Cnc e SCT Ketones 15 Negativ complet Ur Ql 017 mg/dL e ed Strip 22:09 (1+) Bilirub [id number] Negativ complet Ur Ql 017 09 e ed Strip 22:09 Negativ e SCT Hgb Ur [id number] Negativ complet Ql 017 09 e ed Strip.a 22:09 Negativ uto e SCT Prot Ur [id number] Negativ complet Ql 017 06 e ed Strip 22:09 Trace SCT Leukocy [id number] Negativ complet te 017 04 e ed esteras 22:09 Small e Ur Ql SCT Strip.a uto Nitrite [id number] Negativ complet Ur Ql 017 09 e ed Strip 22:09 Negativ e SCT Urobili 0.2 0.2 - complet nogen 017 E.U./dL 1.0 ed Ur Ql 22:09 E.U./dL Strip UA Microscopic Pnl # Ur Auto (06-27-2016 22:09) RBC # 7-12 None complet Ur 017 /HPF Seen, ed 22:09 0-2 WBC Ur 13-20 None complet Ql Auto 017 /HPF Seen ed 22:09 Bacteri [id number] None complet a Ur Ql 017 06 Seen, ed Auto 22:09 Trace Trace SCT /HPF Squamou 3-6 None complet s 017 /HPF Seen, ed #/area 22:09 0-2 UrnS HPF Hyaline 0-6 0-6 complet Casts 017 /LPF ed Ur Ql 22:09 Auto Ref lab Automat complet test 017 ed ed method 22:09 Microsc opy Bacteria Ur Cult (06-27-2016 22:09) Bacteri [id number] complet a XXX 017 9 ed Aerobe 22:09 Normal Cult maisha SCT Troponin T SerPl Ql (06-27-2016 18:02) Troponi 0.19 0.00-0. complet n I 017 ng/mL 07 ed SerPl-m 18:02 Cnc Troponin T SerPl Ql (06-27-2016 14:48) Troponi 0.16 0.00-0. complet n I 017 ng/mL 07 ed SerPl-m 14:48 Cnc CBC W Diff pnl,unspecified Bld (06-27-2016 14:41) Basophi 0.03 0.00-0. complet ls # 017 10*3/mm 20 ed Bld 14:41 3 Auto Imm 0.03 0.00-0. complet Granulo 017 10*3/mm 03 ed cytes # 14:41 3 Bld WBC 12.61 3.50-10 complet nRBC 017 10*3/mm .80 ed cor # 14:41 3 Bld RBC # 3.95 3.89-5. complet Bld 017 10*6/mm 14 ed Auto 14:41 3 Hgb 12.4 11.5-15 complet Bld-mCn 017 g/dL .5 ed c 14:41 Hct VFr 38.2 % 34.5-44 complet Bld 017 .0 ed Auto 14:41 MCV RBC 96.7 fL 80.0-99 complet Auto 017 .0 ed 14:41 MCH RBC 31.4 pg 27.0-31 complet Qn 017 .0 ed Auto 14:41 MCHC 32.5 32.0-36 complet RBC 017 g/dL .0 ed Auto-mC 14:41 nc RDW RBC 12.8 % 11.3-14 complet 017 .5 ed Auto-Rt 14:41 o RDW RBC 45.1 fl 37.0-54 complet Auto 017 .0 ed 14:41 PMV Bld 10.3 fL 6.0-12. complet Auto 017 0 ed 14:41 Platele 206 150-450 complet t # Bld 017 10*3/mm ed Auto 14:41 3 Neutrop 76.4 % 41.0-71 complet hils 017 .0 ed NFr Bld 14:41 Auto Lymphoc 10.5 % 24.0-44 complet ytes 017 .0 ed NFr Bld 14:41 Auto Monocyt 12.7 % 0.0-12. complet es NFr 017 0 ed Bld 14:41 Auto Eosinop 0.0 % 0.0-3.0 complet hil NFr 017 ed Bld 14:41 Auto Basophi 0.2 % 0.0-1.0 complet ls NFr 017 ed Bld 14:41 Auto Imm 0.2 % 0.0-0.6 complet Granulo 017 ed cytes 14:41 NFr Bld Neutrop 9.62 1.50-8. complet hils # 017 10*3/mm 30 ed Bld 14:41 3 Auto Lymphoc 1.33 0.60-4. complet ytes # 017 10*3/mm 80 ed Bld 14:41 3 Auto Monocyt 1.60 0.00-1. complet es # 017 10*3/mm 00 ed Bld 14:41 3 Auto Eosinop 0.00 0.10-0. complet hil # 017 10*3/mm 30 ed Bld 14:41 3 Auto Comp Metab 1998 Pnl SerPl (06-27-2016 14:41) Glucose 107 70-100 complet 017 mg/dL ed Bld-mCn 14:41 c BUN 15 9-23 complet Bld-mCn 017 mg/dL ed c 14:41 Creat 0.90 0.60-1. complet Bld-mCn 017 mg/dL 30 ed c 14:41 Sodium 137 132-146 complet Bld-sCn 017 mmol/L ed c 14:41 Potassi 4.2 3.5-5.5 complet um 017 mmol/L ed Bld-sCn 14:41 c Chlorid 97 99-109 complet e 017 mmol/L ed SerPl-s 14:41 Cnc CO2 31.0 20.0-31 complet SerPl-s 017 mmol/L .0 ed Cnc 14:41 Calcium 10.3 8.7-10. complet 017 mg/dL 4 ed XXX-sCn 14:41 c Prot 7.2 5.7-8.2 complet SerPl-m 017 g/dL ed Cnc 14:41 Albumin 4.20 3.20-4. complet 017 g/dL 80 ed SerPl-m 14:41 Cnc ALT 18 U/L 7-40 complet SerPl w 017 ed 14:41 P-5'-P- cCnc AST 23 U/L 0-33 complet SerPl-c 017 ed Cnc 14:41 ALP 59 U/L 25-100 complet SerPl-c 017 ed Cnc 14:41 Bilirub 0.7 0.3-1.2 complet 017 mg/dL ed SerPl-m 14:41 Cnc GFR/BSA 61 >60 complet .pred 017 mL/min/ ed SerPl 14:41 1.73 MDRD-Ar VRat Globuli 3.0 complet n Ur 017 gm/dL ed Elph-mC 14:41 nc Albumin 1.4 1.5-2.5 complet /Glob 017 g/dL ed SerPl 14:41 BUN/Cre 16.7 7.0-25. complet at 017 0 ed SerPl 14:41 Anion 9.0 3.0-11. complet Gap3 017 mmol/L 0 ed SerPl-s 14:41 Cnc BNP SerPl-mCnc (06-27-2016 14:41) BNP 417.0 0.0-100 complet SerPl-m 017 pg/mL .0 ed Cnc 14:41
--- OUTSIDE RECORDS SUMMARY | 2017-04-19 12:50 | External Medical Summary Rpt | CCD ---
Author Author , ERON Organization ERON Address Unknown Phone [email or web address] Purpose Continuity of Care Document - 06-27-2016 [...] 017 K/mm3 ed monocyt 10:40 e count Miner % = 13.2 1.7-9.3 complet 017 % [...] SQUARE METERS Comment: If this patient is -Surinamese, then multiply the Comment: result by 1.210. [...] SQUARE METERS Comment: If this patient is -Surinamese, then multiply the Comment: result by 1.210. [...] SQUARE METERS Comment: If this patient is -Surinamese, then multiply the Comment: result by 1.210. [...] 017 K/mm3 ed monocyt 09:50 e count Miner % 2 = 9.3 % 1.7-9.3 complet [...] 017 K/mm3 ed monocyt 06:45 e count Miner % = 11.1 1.7-9.3 complet 017 % [...] SQUARE METERS Comment: If this patient is -Surinamese, then multiply the Comment: result by 1.210. [...] 017 K/mm3 ed monocyt 06:20 e count Miner % = 7.3 % 1.7-9.3 complet 017 [...] SQUARE METERS Comment: If this patient is -Surinamese, then multiply the Comment: result by 1.210. Serum = 130 74-106 complet or 017 mg/dL ed plasma 06:03 glucose measure ment ([facility] Serum = 4.4 3.5-5.1 complet potassi 017 mmoL/L ed um 06:03 measure ment Serum = 135 136-145 complet sodium 017 mmoL/L ed measure 06:03 ment Serum = 9.3 8.5-10. complet or 017 mg/dL 1 ed plasma 06:03 calcium measure ment ([facility] CBC w auto diff (03-30-2017 06:03) [...] 017 K/mm3 ed monocyt 06:03 e count Miner % = 6.9 % 1.7-9.3 complet 017 [...] hematocrit pa (03-28-2017 16:30) Comment: COMMENTS TO TOY CONSULTANT: 1 HR POST TRANSFUSION Blood = 35.4 [...] Comment: BLOOD UNIT # : [id number] RELEASED 03/28/17 1400 Comment: Khurram Guy Comment: Comment: O POSITIVE Leukocyte reduction of packed red blood (03-28-2017 11:20) Leukocy BLOOD complet te 017 UNIT ed reducti 11:20 RELEASE on of BLOOD packed UNIT red RELEASE blood L Comment: Comment: BLOOD UNIT # : [id number] RELEASED 03/28/17 Comment: [employer] Comment: O [...] 017 K/mm3 ed monocyt 05:45 e count Miner % = 7.3 % 1.7-9.3 complet 017 [...] SQUARE METERS Comment: If this patient is -Surinamese, then multiply the Comment: result by 1.210. [...] ed ser/husam 09:10 s Comment: Performed at: [facility] Comment: [id number], [place] [id number] Comment: Metal Sorter: Shahriar Mena PhD, Phone: [phone] Cardiac enzymes (03-27-2017 07:55) Serum 03-27-2 = [...] 017 K/mm3 ed monocyt 03:00 e count Miner % = 14.2 1.7-9.3 complet 017 % [...] SQUARE METERS Comment: If this patient is -Surinamese, then multiply the Comment: result by 1.210. [...] l: ed 21:25 right brachia l Arteria [id number] complet l 017 09 Not ed patency [...] B Ag XXX Ql (09-04-2016 21:24) FLUAV [id number] Negativ complet Ag Nph 017 09 e ed Ql 21:24 Negativ e SCT FLUBV [id number] Negativ complet Ag Nph 017 09 e [...] ed SerPl-s 21:06 Cnc Digoxin>12h p dose SerPl-mCva (09-04-2016 21:06) Digoxin < 0.01 0.80-2. complet 017 ng/mL 00 ed SerPl-m 21:06 Cnc Mg Ionized SerPl-[facility] (07-02-2016 12:56) Magnesi 2.0 1.3-2.7 complet um [...] UA Dipstick Pnl Ur (06-27-2016 22:09) Color [id number] Yellow, complet Ur 017 09 Straw ed 22:09 Yellow color SCT Clarity [id number] Clear complet Ur 017 5 ed 22:09 Cloudy SCT pH Ur 5.5 5.0-8.0 complet Strip.a 017 ed uto 22:09 Sp Gr 1.018 1.001-1 complet Ur 017 .030 ed Strip 22:09 Glucose [id number] Negativ complet Ur 017 09 e ed Strip-m 22:09 Negativ Cnc e SCT Ketones 15 Negativ complet Ur Ql 017 mg/dL e ed Strip 22:09 (1+) Bilirub [id number] Negativ complet Ur Ql 017 09 e ed Strip 22:09 Negativ e SCT Hgb Ur [id number] Negativ complet Ql 017 09 e ed Strip.a 22:09 Negativ uto e SCT Prot Ur [id number] Negativ complet Ql 017 06 e ed Strip 22:09 Trace SCT Leukocy [id number] Negativ complet te 017 04 e ed esteras 22:09 Small e Ur Ql SCT Strip.a uto Nitrite [id number] Negativ complet Ur Ql 017 09 e ed Strip 22:09 Negativ e SCT Urobili 0.2 0.2 - complet nogen 017 E.U./dL 1.0 ed Ur Ql 22:09 E.U./dL Strip UA Microscopic Pnl # Ur Auto (06-27-2016 22:09) RBC # 7-12 None complet Ur 017 /HPF Seen, ed 22:09 0-2 WBC Ur 13-20 None complet Ql Auto 017 /HPF Seen ed 22:09 Bacteri [id number] None complet a Ur Ql 017 06 Seen, ed Auto 22:09 Trace Trace SCT /HPF Squamou 3-6 None complet s 017 /HPF Seen, ed #/area 22:09 0-2 UrnS HPF Hyaline 0-6 0-6 complet Casts 017 /LPF ed Ur Ql 22:09 Auto Ref lab Automat complet test 017 ed ed method 22:09 Microsc opy Bacteria Ur Cult (06-27-2016 22:09) Bacteri [id number] complet a XXX 017 9 ed Aerobe [...]
--- OUTSIDE RECORDS SUMMARY | 2017-04-19 12:51 | External Medical Summary Rpt | CCD ---
Author Author , ERON LITTLEJOHN Address Unknown Phone [email or web address] Immunization Name Date Rout CVX Reac Dose [...]
--- OUTSIDE RECORDS SUMMARY | 2017-04-19 12:51 | External Medical Summary Rpt | CCD ---
Author Author , ERON LITTLEJOHN Address Unknown Phone [email or web address] Immunization Name Date Rout CVX Reac Dose [...]
[2017-04-19] MEDS ORDERED: MIRALAX(PO17 GM/1 PA PO (15:54)
[2017-04-19] MEDS ORDERED: NITROGLYCERIN0.4 MG SL (15:55)
[2017-04-19] MEDS ORDERED: XOPENOX 0.0.63 MG/3 IN (16:02)
[2017-04-19 16:52] LABS: ANTIHUMAN GLOB CROSSMATCH COMPAT
--- NOTE | 2017-04-19 17:06 | RADIOLOGY REPORT PS360 ---
CT ABD PELVIS W/ CONTRAST HISTORY: LOW H AND H anemia + Patient Age: 77 years: Female Ordering Physician: Barrett Khanna MD TECHNIQUE: Helical CT scanning performed through the abdomen following 785 cc Isovue-370. COMPARISON :No prior abdominal studies with our recent chest films from March 30 and April 03, 2017. FINDINGS Lower Thorax. Recent chest films have shown improvement bibasilar pneumonia. On CT we see some scant residual infiltrate superimposed post upon chronic lung changes just above the hemidiaphragm bilateral. 4.5 cm. X4.3 Aneurysm of lower thoracic aorta. Extends over 5 cm length. Slightly saccular character.No leakage nor rupture evident. This is seen Behind the heart & tapers as it enters the abdomen. The aorta then tapers to 17. Mm as it enters the upper abdomen. Diffuse atherosclerotic calcification throughout the abdominal aorta. Appears to be fairly high-grade stenosis at the aortic bifurcation & origin of iliac arteries based on this survey study... Abdomen/Pelvis. PROMINENT BULKY ABDOMINAL ADENOPATHY: Prominent large bulky mass masses/confluent adenopathy throughout abdomen posteriorly and extending through level of aortic bifurcation. These large bulky confluence areas of nodes/adenopathy are seen throughout both left & right periaortic region. Enlarged nodes are seen extending towards the rocio hepatis. Enlarged nodes displaces the IVC anteriorly. Enlarged nodes interposed between IVC and aorta. One of the larger confluent nichelle masses is seen superiorly just posterior to the stomach & displaces stomach anteriorly. It This large nichelle mass measuring up to 6 cm AP, 6 cm height 4.5 cm..This was Labeled A on several image Continuing inferior to this there is also a large nichelle mass left para- aortic region labeled B measuring 6 cm x 4.6 cm.. This nichelle mass wrapping about the left renal artery & extending above the left renal vein. This may actually become confluent with the large mass posterior the stomach discussed above labeled A..These large areas of localized adenopathy specifically mentioned adenopathy to highlight these areas more prominent bulky adenopathy Continuing inferiorly we continue multiple diffuse enlarged nodes throughout the retroperitoneal region surrounding aorta and IVC continuing to the bifurcation.. These confluent nodes blend together but with many measure over 2.5 cm. Below the bifurcation is a enlarged large node posterior the right common iliac along the proximal iliac chain measuring at least 2.5 cm.. No significant nodes along the pelvic sidewall PELVIC CYSTIC MASS: At continuing into the pelvis, very large thin-walled cystic mass pelvis. Up to nearly 11 cm maximum oblique AP dimension x 8.5 cm x 7 cm height. The 5 minute delayed images show contrast filling urinary bladder immediately beneath this area....] Delayed imaging beyond 5 minute was not performed which. If further exclude unlikely large bladder diverticulum but I doubt this is the case. With its overall appearance raises concern regarding a large cystic ovarian neoplasm. Although fairly thin wall with no enhancement or areas of wall thickening to raise concern regarding cystadenocarcinoma., This could be a be a large cystic serous cystadenoma or some other cystic mass.. Less likely large old endometrioma. Understand patient is anemic with question blood loss, but I doubt this is this is a hematoma given its water fluid density, similar to the density of urinary bladder.. No no layering or other features supporting recent hematoma otherwise. This large cystic pelvic mass and density superior right aspect of the bladder and displaces with may be uterus and MLO or possibly ovary posteriorly. Correlation with pelvic ultrasound may be of benefit as well in this regard. Calcification seen towards right right posterior pelvis may reflect a calcified fibroid along the right margin of the bladder. Nonspecific. -------- SPLENOMEGALY noted. 12 cm length 11 cm AP. Liver. No focal lesions. Pancreas itself appears satisfactory, but again note nodes posterior to the head of the pancreas. Gallbladder unremarkable, duct normal. Kidneys. No hydronephrosis nor current urinary tract obstruction. Calcifications the kidneys bilaterally many of which are renal vascular calcifications rather than kidney stones. LEFT KIDNEY. The largest calcification is seen towards lower pole left kidney and measures 6.5 mm length times x 5 mm x 3.5 mm. And could be a nonobstructive calculus. Lower pole left kidney is a 21 mm ovoid mass. Indeterminate character.. Appears solid or semisolid. Density Measurements suggest slight enhancement noted. (Measuring 76HU on early contrast study, and 60HURight on this delayed image set.) . Recommend ultrasound to to further evaluate this mass. If RIGHT KIDNEY. Small 11 mm mm nodule off the midportion right kidney. Indeterminate character. It does not measure fluid density. In fact it shows slight enhancement this also shows similar pattern ( with density measuring 75 HU early postcontrast image and 59HU on the delayed images.) This warrants ultrasound as well It measures density on kidney small benign 12 mm cyst along lateral aspect. Osseous echo scoliosis spine with multilevel degenerative disc changes and lumbar spondylosis. GI tract. As previously noted the stomach appears anteriorly displaced bulky nichelle mass posterior to it. The small bowel appears satisfactory. Normal caliber. Region of terminal ileum unremarkable. No evidence of appendicitis. Contrast seen throughout the large bowel with moderate stool throughout colon. Upper normal wall thickness and anal verge. Mild diverticulosis sigmoid colon IMPRESSION 1. Very prominent large bulky adenopathy upper abdomen, with diffuse adenopathy continuing inferiorly to the right common iliac chain,. Details in text. . large soft tissue masses & multi adenopathy is most pronounced in upper abdomen & retroperitoneal region.. This appearance most likely reflects lymphoma. 2. Splenomegaly . ~12 cm length 3. Large thin-walled cystic right pelvic mass measuring up to 11 cm x 8.5 cm maximally. Suspect possible ovarian cyst adenoma. No wall lesion or abnormal enhancement to further raise concern..,. Would benefit from pelvic ultrasound. This large cyst displaces uterus & right ovary to the far posterior pelvis,.. See discussion...(Although I do not believe this related to bladder, I would encourage including post void imaging pelvis, When ultrasound pelvis performed) 4. Prominent up to 4.5 cm aneurysm lower thoracic aorta. 5. Minimal residual Resolving bibasilar pneumonic infiltrate noted 6. Indeterminate renal masses bilaterally . Warrant follow-up bilateral renal ultrasound./Or complete abdominal ultrasound may be helpful in this case. 21 mm possible solid mass lower pole LEFT kidney; & 11 mm small area lateral margin mid RIGHT kidney. Both these areas seem to show slight enhancement on today's CT, which is bothersome & speaks against a hemorrhagic cyst 7... Multiple punctate calcifications at kidneys. Many calcifications are arterial vascular calcifications, but there are a few punctate nonobstructive calculi. Largest at pole left kidney 8. .
--- NOTE | 2017-04-19 17:37 | HISTORY AND PHYSICAL REPORT ---
History and Physical ([facility]) Date of admission: 04/19/17 Chief complaint: Weakness and abdominal pain. History: History of Present Illness: Mrs. quintana there is a 77-year-old white female with a number of health issues ongoing. She presented to the emergency room with weakness and abdominal pain. She was found to have a low H and H. Her CT has also been revealing for several issues including a retroperitoneal mass which suggests is suggestive of lymphoma. This was discovered on this admission. She also has a 4 cm AAA. There is also a 9 cm pelvic cyst present. She has severe chronic lung disease. She has had atrial fibrillation Past Medical History: Medical History: CAD? Yes Angina: Yes [place]: Yes Hypertension? Yes Hyperlipidemia? No CHF? No DVT? No PE? No COPD? Yes Asthma? No Anemia? Yes GERD? No Gastric ulcers? No GI Bleed? No Hernia? No Thyroid Problems? No Hypothyroidism? No CVA? No Seizures? No Diabetes? No Renal Insuffiency? No UTI? No Stones? No GB Disease: No Nephritic Syndrome? No Asplenia? No Hepatitis? No Sickle Cell Disease? No Arthritis? No Migraines? No Cataracts? No Glaucoma? No MRSA? No HIV? No TB? No Anxiety? Yes Depression? Yes Cancer? No More? Yes Additional hx: 1. Chronic atrial fib Additional medical history: She sees Dr. Sinclair for pulmonary problems. She sees Dr. Calhoun for heart disease. She has past history of a cardiac catheterization with stent placement. Surgical history: Previous Surgery?Y 1. Cath w/Stent 2. T&A 3. Cataracts Medications: Active Scripts Ondansetron (Zofran 4MG Odt) 4 MG PO Q6HP PRN NAUSEA AND VOMITING #6 ODT Prov: 04/03/17 Pantoprazole Sodium 40 MG PO BID #60 TABS Ref 1 Prov: 04/02/17 DIGOXIN (Digox) 0.125 MG PO DAILY #30 TAB Ref 2 Prov: 04/02/17 DILTIAZEM HCL (Diltiazem 12HR ER) 120 MG PO BID #60 C12 Ref 2 Prov: 04/02/17 Guaifenesin/Dextromethorphan (Robitussin Cough-Chest Dm Liq) 10 ML PO Q6HP PRN COUGH #240 ML Ref 2 Prov: 04/02/17 Reported Medications Senna Pod (Senna Laxative) 2 TAB PO QHS Tiotropium Chadwick (Spiriva) 2 PUFF IH DAILY Guaifenesin (Mucus ER) 600 MG PO BID Budesonide (Pulmicort) 0.5 MG IN BID Formoterol Fumarate (Perforomist) 20 MCG IH BID POLYETHYLENE GLYCOL (Miralax) 17 GM PO DAILY NITROGLYCERIN (Nitrostat) 0.4 MG SL [id number] PRN CP Levalbuterol Hcl (Xopenex 0.63MG NEB) 0.63 MG IN TID Acetaminophen (Acetaminophen Extra Strength) 500 MG PO PRN PRN PAIN OR FEVER Aspirin (Adult Low Dose Aspirin EC) 81 MG PO DAILY Cyanocobalamin (Vitamin B-12) (Vitamin B12) 1,000 MCG PO DAILY Roflumilast (Daliresp) 500 MCG PO DAILY Apixaban (Eliquis) 5 MG PO BID MELATONIN (Melatin) 1 TAB PO QHS PAROXETINE HCL (Paxil) 10 MG PO DAILY ALBUTEROL (Proventil Hfa Inhaler) 1-2 PUFF IH Q4-6H PRN ALBUTEROL (Albuterol 0.083% Neb) 2.5 MG INH QID Allergies: Coded Allergies: Penicillins (Mild, 03/27/17) aspirin (Mild, 03/27/17) Family History: Family history: Postive for: HTN, cancer. Negative for: CAD, DM, hyperlipidemia, stroke. Additional family history: one daughter Social History: Smoking Hx Tobacco: No Smoker: Former Smoker Type: Cigarettes Packs/day: 1 1/2 - 2 Packs Are you exposed to second hand Yes Alcohol: Alcohol: No Hx of Drug Use: Drug Use? 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 No Constitutional Positive for: fatigue, lethargy, malaise, weak, recent weight loss. ENT Positive for: nasal congestion. No: nose bleed. Cardiovascular Positive for: HOPKINS, chest pain. No: edema. Respiratory Positive for: shortness of air. No: hemoptysis, productive cough (sputum). GI Positive for: abdominal pain, constipation, nausea. No: hematemeis, hematochezia, melena. (female) No: flank pain. Skin No: bruising, swelling. Neurological Positive for: weakness. No: change in LOC, confusion. Immune/allergy Positive for: allergy. Eyes No: blurry vision, vision loss, swelling. Musculoskeletal No: extremity swelling. Endocrine No: cold intolerance. Psychiatric Positive for: anxious. No: agitation, confused, change in mental status. Physical Exam: Vital signs: 1ST Vital Signs Result Date Time Pulse Ox 100 04/19 1022 B/P 142/88 04/19 1022 O2 Flow Rate 3 04/19 102 Temp 98.4 04/19 102 Pulse 88 04/19 102 Resp 18 04/19 102 O2 Delivery OXYGEN 04/19 1312 Exam: General appearance: alert, thin, cachetic Eyes: anicteric, PERRLA ENT: mucous membranes moist Neck: no JVD Cardiovascular: regular rate & rhythm, murmur (systolic 2/6 aortic) Respiratory: aerating well, no respiratory distress ABD: soft, no tenderness, no guarding, scaphoid Extremities: no peripheral edema Musculoskeletal: equal muscle strength, muscle wasting Skin: dry, intact (sallow) Neuro: alert, speech clear (speaks slowly) Lab data: Labs: Laboratory Tests 04/19/17 1618: [facility] Test Units BLOOD UNIT RELEASE 04/19/17 1115: Urine Color DK YELLOW, Urine Appearance SL CLOUDY, Urine pH 6.5, Ur Specific [place] 1.015, Urine Protein NEGATIVE, Urine Ketones NEGATIVE, Urine Blood NEGATIVE, Urine Nitrate NEGATIVE, Urine Bilirubin NEGATIVE, Urine Urobilinogen 0.2, Ur Leukocyte Esterase NEGATIVE, Urine WBC 3-5, Ur Squamous Epith Cells OCC, Urine Bacteria 4+, Urine Glucose NEGATIVE 04/19/17 1040: Magnesium 1.3 L, Troponin I 0.02, Lipase 56 L, MCH 30.6 04/19/17 1040: Sodium 136, Potassium 3.7, Chloride 97 L, Carbon Dioxide 35 H, BUN 17, Creatinine 0.7, Estimated Creat Clear 42 L, Estimated GFR (MDRD) 81, Glucose 115 H, Calcium 9.9, Total Bilirubin 1.1 H, AST 9 L, ALT 10 L, Alkaline Phosphatase 84, Total Protein 5.5 L, Albumin 2.5 L, Globulin 3.0, Albumin/ Globulin Ratio 0.8 L, WBC 2.5 L, RBC 2.42 L, Hgb 7.4 *L, Hct 22.8 *L, MCV 93.9, RDW 16.8, Plt Count 68 L, MPV 9.5, Gran % 69.5, Gran # 1.7 L, Lymphocytes % 16.7, Monocytes % 13.2 H, Eosinophils % 0.2, Basophils % 0.4, Lymphocytes # 0.4 L, Monocytes # 0.3, Eosinophils # 0.0, Basophils # 0.0, PUBS MCHC 32.5, Antibody Screen NEGATIVE, Miscellaneous Test POSITIVE, Digoxin 0.77 L 04/19/17 1035: Stool Occult Blood NEGATIVE 04/19/17 1030: PT 13.4 H, INR 1.24 H, APTT 25.8 Microbiology 04/19 1115 URINE CC: Urine Culture - RECD Radiology results: Results: CT reportedly shows a 9 x 8 cm retroperitoneal mass suggestive of lymphoma, a 4 cm abdominal aortic aneurysm Diagnosis(es): 1. Anemia Status: Acute 2. Nausea 3. Cachexia 4. Constipation 5. Weakness 6. Lymphoma 7. Ovarian cyst 8. Aortic aneurysm Additional information: See orders. She is receiving transfusion. at [id number]
--- NOTE | 2017-04-19 18:12 | RADIOLOGY REPORT PS360 ---
CHEST-PORTABLE HISTORY: WEAKNESS Patient Age: 77 years: Female Ordering Physician: Barrett Khanna MD TECHNIQUE: AP portable upright chest COMPARISON :04/03/2017 portable upright chest FINDINGS 04/03/2017 and 03/30/2017 there is continues to be progressive improvement & clearing of the previous superimposed pneumonia at the lung bases.. A prominent COPD with hyperexpansion at the upper lung garay. It continues to be some mild fibrotic changes and accentuated markings toward the lower lung garay bilaterally. Suggestion of some simona B lines bilaterally but this most likely reflects septal fibrotic changes, mild residual edema in the spaces from resolving pneumonia. No cephalization nor other findings to raise concern regarding CHF.. Heart is normal in size. Emily and mediastinal structures appear satisfactory. The aneurysm of the lower thoracic aorta noted on today's CT is evident as a bulge in the contour of the lower thoracic aorta just towards the junction of the diaphragm. . IMPRESSION: 1 Prominent COPD, & emphysema. 2. Continued improvement with near complete clearing of recent bibasilar pneumonia. Only mild residual accentuated septa towards lung bases. Reflects chronic interstitial lung changes possibly accentuated by scant residual minimal fluid from recent pneumonia. 3. Leftward bulge lower most thoracic aortic contour- reflects the aneurysm here seen on today CT chest
[2017-04-19 23:29] LABS: HEMOGLOBIN 9.8 g/dL (12.2-16.2)
[2017-04-20 00:37] VITALS: BP 159/76
[2017-04-20 04:53] VITALS: BP 164/71
[2017-04-20 07:09] LABS: LYMPH # 0.7 K/mm3 (0.7-4.5); LYMPH % 17.4 % (10-50.0)
[2017-04-20 07:39] LABS: HEMOGLOBIN 10.8 g/dL (12.2-16.2)
[2017-04-20 08:30] VITALS: BP 166/69
--- NOTE | 2017-04-20 09:33 | PHARMACY CLINIC NOTE ---
Patient Demographics Patient Demographics Admission date: 04/19/17 Date: 04/20/17 Time: 0932 Allergies Coded Allergies: Penicillins (Mild, 03/27/17) aspirin (Mild, 03/27/17) HEIGHT- FT: 5 IN: 1.00 K.597 VTE General Information Labs: Laboratory Tests 04/20 04/19 04/19 04/19 0645 2315 1040 1030 Coagulation PT (9.4 - 11.8 SECONDS) 13.4 H INR (0.9 - 1.1) 1.24 H APTT (23.6 - 34.0 SECONDS) 25.8 Hematology Hgb (12.2 - 16.2 g/dL) 10.8 L 9.8 L 7.4 *L Hct (37.0 - 47.0 %) 32.5 L 29.2 L 22.8 *L Plt Count (142 - 424 K/mm3) 80 L 68 L Disclaimer The following section includes nursing documentation that has been pulled in for pharmacy review. Patient's VTE score: 2 Patient's VTE Risk: VERY LOW RISK Clinical trial participant? No VTE prophylaxis NQF [id number] VTE prophylaxis ordered? Yes Type of prophylaxis/treatment: ZOEY at 0932
[2017-04-20] MEDS ORDERED: ASPIRIN CHILDRE81 M2 PO (09:48)
[2017-04-20] MEDS ORDERED: PROTONIX 40MG T40 MG PO (09:51)
[2017-04-20] MEDS ORDERED: MELATONIN1 M3 PO (09:52)
--- NOTE | 2017-04-20 09:54 | ACUTE CARE PROGRESS NOTE (QUA) ---
Progress Notes Subjective Date 04/20/17 Time 0949 Note NURSING SERVICES MANAGER consult note: Thank you for asking me to participate in the care of this pleasant 77-year-old white female who was admitted with pelvic pain and has significant medical problems. She is currently on oxygen and laboring to breathe. Lungs tests that were done was a CT scan which shows an 11 x 8 cm RIGHT ovarian cystic mass, among other findings. I visited the patient, but did not do an actual pelvic exam. Her abdomen is tender, especially in the RIGHT lower quadrant. The patient denies any previous abdominal or pelvic surgery. She states that the pain she is having in the RIGHT lower quadrant is relatively new (only within the last few days), but is severe at times. A CEA and a CA-125 have been ordered, results pending. Surgery would seem to be indicated, but the patient's medical condition may be a limiting factor. I will check back with her after test results RN. Thank you again for consulting me. I will continue to follow. Assessment/Plan Problem List 1. Anemia Status: Acute 2. Nausea 3. Cachexia 4. Constipation 5. Weakness 6. Lymphoma 7. Ovarian cyst 8. Aortic aneurysm This inpt stay is expected to cross 2 MNs from start of care Yes (pelvic mass) at 0906
--- NOTE | 2017-04-20 10:00 | ACUTE CARE PROGRESS NOTE (QUA) ---
Progress Notes Subjective Date 04/20/17 Time 0957 Note Complains about not getting any fluids. We will correct that. She is seen in consultation by Dr. Urena. CT report is reviewed with Dr. Urena. Objective Findings Laboratory Tests 04/20/17 0645: Sodium 137, Potassium 3.3 L, Chloride 99, Carbon Dioxide 34 H, BUN 21 H, Creatinine 0.8, Estimated Creat Clear 37 L, Estimated GFR (MDRD) 69, Glucose 98 , Calcium 9.6, WBC 4.2 L, RBC 3.62 L, Hgb 10.8 L, Hct 32.5 L, MCV 89.9, RDW 16.8, Plt Count 80 L, MPV 9.5, Gran % 68.7, Gran # 2.9, Lymphocytes % 17.4, Monocytes % 13.4 H, Eosinophils % 0.2, Basophils % 0.3, Lymphocytes # 0.7, Monocytes # 0.6, Eosinophils # 0.0, Basophils # 0.0, PUBS MCHC 33.1, MCH 29.8 04/19/17 2315: Hgb 9.8 L, Hct 29.2 L 04/19/17 2005: [facility] [place] Test Units BLOOD UNIT RELEASE 04/19/17 1618: [facility] [place] Test Units BLOOD UNIT RELEASE 04/19/17 1115: Urine Color DK YELLOW, Urine Appearance SL CLOUDY, Urine pH 6.5, Ur Specific [place] 1.015, Urine Protein NEGATIVE, Urine Ketones NEGATIVE, Urine Blood NEGATIVE, Urine Nitrate NEGATIVE, Urine Bilirubin NEGATIVE, Urine Urobilinogen 0.2, Ur Leukocyte Esterase NEGATIVE, Urine WBC 3-5, Ur Squamous Epith Cells OCC, Urine Bacteria 4+, Urine Glucose NEGATIVE 04/19/17 1040: Magnesium 1.3 L, Troponin I 0.02, Lipase 56 L, MCH 30.6 04/19/17 1040: Sodium 136, Potassium 3.7, Chloride 97 L, Carbon Dioxide 35 H, BUN 17, Creatinine 0.7, Estimated Creat Clear 42 L, Estimated GFR (MDRD) 81, Glucose 115 H, Calcium 9.9, Total Bilirubin 1.1 H, AST 9 L, ALT 10 L, Alkaline Phosphatase 84, Total Protein 5.5 L, Albumin 2.5 L, Globulin 3.0, Albumin/ Globulin Ratio 0.8 L, WBC 2.5 L, RBC 2.42 L, Hgb 7.4 *L, Hct 22.8 *L, MCV 93.9, RDW 16.8, Plt Count 68 L, MPV 9.5, Gran % 69.5, Gran # 1.7 L, Lymphocytes % 16.7, Monocytes % 13.2 H, Eosinophils % 0.2, Basophils % 0.4, Lymphocytes # 0.4 L, Monocytes # 0.3, Eosinophils # 0.0, Basophils # 0.0, PUBS MCHC 32.5, Antibody Screen NEGATIVE, Miscellaneous Test POSITIVE, Digoxin 0.77 L 04/19/17 1035: Stool Occult Blood NEGATIVE 04/19/17 1030: PT 13.4 H, INR 1.24 H, APTT 25.8 Microbiology 04/19 111 URINE CC: Urine Culture - RES Last VS-Temp:98.2 B/P:166/69 Pulse:93 Resp:22 SaO2:100 OXYGEN Last weight lbs:89 oz:8 K.597 Method:Bed Scales Exam General appearance: alert, no acute distress Eyes: anicteric ENT: mucous membranes moist Neck: no JVD (PERHAPS MILD) Cardiovascular: regular rate & rhythm Respiratory: no respiratory distress, diminished breath sounds ABD: soft Extremities: no peripheral edema Skin: dry Neuro: oriented, speech clear Reviewed: medications, vital signs, lab results, radiology report Assessment/Plan Problem List 1. Anemia Status: Acute 2. Nausea 3. Cachexia 4. Constipation 5. Weakness 6. Lymphoma 7. Ovarian cyst 8. Aortic aneurysm Plan: continue current care This inpt stay is expected to cross 2 MNs from start of care Yes (pelvic mass) at 0959
[2017-04-20 15:58] VITALS: BP 112/58
[2017-04-20 20:11] VITALS: BP 140/60
[2017-04-20 21:39] VITALS: BP 140/60
[2017-04-21 04:30] VITALS: BP 127/82
--- NOTE | 2017-04-21 06:28 | ACUTE CARE PROGRESS NOTE (QUA) ---
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 I feel these tests are important prior to determining the next course of action. Most likely surgery is indicated, but the patient's medical condition is tenuous. I will discuss this with Dr. Khanna today. Assessment/Plan Problem List 1. Anemia Status: Acute 2. Nausea 3. Cachexia 4. Constipation 5. Weakness 6. Lymphoma 7. Ovarian cyst 8. Aortic aneurysm This inpt stay is expected to cross 2 MNs from start of care Yes (pelvic mass) at 0681
--- NOTE | 2017-04-21 06:28 | ACUTE CARE PROGRESS NOTE (QUA) ---
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 I feel these tests are important prior to determining the next course of action. Most likely surgery is indicated, but the patient's medical condition is tenuous. I will discuss this with Dr. Khanna today. Assessment/Plan Problem List 1. Anemia Status: Acute 2. Nausea 3. Cachexia 4. Constipation 5. Weakness 6. Lymphoma 7. Ovarian cyst 8. Aortic aneurysm This inpt stay is expected to cross 2 MNs from start of care Yes (pelvic mass) at 0653
[2017-04-21 06:40] LABS: Cancer Antigen (CA) 125 28.2 U/mL (0.0-38.1)
[2017-04-21 08:30] VITALS: BP 141/59
[2017-04-21 08:31] LABS: HEMOGLOBIN 11.1 g/dL (12.2-16.2); LYMPH # 0.7 K/mm3 (0.7-4.5); LYMPH % 15.3 % (10-50.0)
--- NOTE | 2017-04-21 09:09 | ACUTE CARE PROGRESS NOTE (QUA) ---
Progress Notes Subjective Date 04/21/17 Time 0837 Note C/o nausea and early satiety. She is having more pain in right lower abdomen. Breathing is about the same Objective Findings Laboratory Tests 04/21/17 0740: Sodium 134 L, Potassium 4.2, Chloride 98, Carbon Dioxide 33 H, BUN 21 H, Creatinine 0.7, Estimated Creat Clear 42 L, Estimated GFR (MDRD) 81, Glucose 115 H, Calcium 9.6, WBC 4.8, RBC 3.75 L, Hgb 11.1 L, Hct 34.7 L, MCV 92.4, RDW 16.6, Plt Count 76 L, MPV 9.4, Gran % 71.1, Gran # 3.4, Lymphocytes % 15.3, Monocytes % 12.9 H, Eosinophils % 0.3, Basophils % 0.5, Lymphocytes # 0.7, Monocytes # 0.6, Eosinophils # 0.0, Basophils # 0.0, PUBS MCHC 32.1, MCH 29.7 Last VS-Temp:98.5 B/P:141/59 Pulse:65 Resp:24 SaO2:100 OXYGEN Last weight lbs:89 oz:8 K.597 Method:Bed Scales Exam General appearance: alert but weak, appears not to feel well. Cardiovascular: regular rate & rhythm Respiratory: generally diminished BS with rhonchi. ABD: soft, diffusely tender Assessment/Plan Problem List 1. Anemia Status: Acute 2. Lymphoma 3. Ovarian mass 4. COPD (chronic obstructive pulmonary disease) 5. Nausea 6. Cachexia 7. Constipation 8. Weakness 9. Aortic aneurysm Patient condition Guarded Plan: Awaiting Oncology consult. In regard to her ovarian mass, she is likely looking at surgical procedure but she is poor surgical candidate due to her severe COPD. This inpt stay is expected to cross 2 MNs from start of care Yes (pelvic mass) at 1904
[2017-04-21 10:34] VITALS: BP 141/59
[2017-04-21 16:01] VITALS: BP 128/54
[2017-04-21 19:40] VITALS: BP 134/70
[2017-04-21 19:54] VITALS: BP 134/70
[2017-04-22 04:08] VITALS: BP 136/60
[2017-04-22 08:00] VITALS: BP 120/51
--- NOTE | 2017-04-22 08:39 | ACUTE CARE PROGRESS NOTE (QUA) ---
Progress Notes Subjective Date 04/22/17 Time 0832 Note Patient states she is not feeling well this morning. She still cannot breathe and is having pain in her LEFT upper and lower quadrants. She states she did not rest well. She's also having a hard time eating. Objective Findings Last VS-Temp:98.0 B/P:136/60 Pulse:57 Resp:24 SaO2:97 OXYGEN Last weight lbs:89 oz:8 K.597 Method:Bed Scales Exam General appearance: alert, awake, dyspneic at rest Cardiovascular: regular rate & rhythm Respiratory: diminished breath sounds ABD: non-distended, normal bowel sounds, no rebound, soft, no guarding, ttp in the LLQ and LUQ Extremities: no peripheral edema Assessment/Plan Problem List 1. Anemia Status: Acute 2. Lymphoma 3. Ovarian mass 4. COPD (chronic obstructive pulmonary disease) 5. Nausea 6. Cachexia 7. Constipation 8. Weakness 9. Aortic aneurysm 10. Enterococcus UTI Plan: Dr. Rodriguez has been consulted but is not here this week. Will discuss further plan of care with Dr. Mckeon. She does have an enterococcus UTI and we will start on abx. This inpt stay is expected to cross 2 MNs from start of care Yes (pelvic mass) (Heather Golden) Subjective Date 04/22/17 Time 1030 Assessment/Plan Problem List 1. Anemia Status: Acute 2. Lymphoma 3. Ovarian mass 4. COPD (chronic obstructive pulmonary disease) 5. Nausea 6. Cachexia 7. Constipation 8. Weakness 9. Aortic aneurysm 10. Enterococcus UTI Plan: Pt sleeping upon entering room. Respirations easy and unlabored. She arouses easily and is coherent. She appears weak and speaks in a whisper. SHe becomes dyspneic just moving about in the bed. She is not eating much due to lack of appetite and some nausea. Pain seems to be controlled. CEA and CA [address] Rodriguez is not available for consult this week. Spoke at some length with patient regarding her diagnoses. I explained that she is a very high surgical risk due to here severe lung disease. Also discussed option of Hospice referral. SHe is going to consider her options. (Ryann Mckeon MD) at 0838 at 1230
[2017-04-22 10:05] VITALS: BP 120/51
[2017-04-22 16:03] VITALS: BP 110/55
[2017-04-22 19:23] VITALS: BP 122/56
[2017-04-22 19:28] VITALS: BP 122/56
[2017-04-23 04:00] VITALS: BP 120/53
[2017-04-23 08:00] VITALS: BP 123/61
--- NOTE | 2017-04-23 08:18 | ACUTE CARE PROGRESS NOTE (QUA) ---
Progress Notes Subjective Date 04/23/17 Time 0816 Note Pt states she has pain in her epigastric area. Still SOA. Wants some pain medication. Objective Findings Last VS-Temp:98.0 B/P:120/53 Pulse:57 Resp:20 SaO2:100 OXYGEN Last weight lbs:89 oz:8 K.597 Method:Bed Scales Exam General appearance: lethargic, able to answer questions Cardiovascular: regular rate & rhythm Respiratory: diminished breath sounds ABD: non-distended, normal bowel sounds, no rebound, soft, no guarding, ttp in the epigastric area Extremities: no peripheral edema Assessment/Plan Problem List 1. Anemia Status: Acute 2. Lymphoma 3. Ovarian mass 4. COPD (chronic obstructive pulmonary disease) 5. Nausea 6. Cachexia 7. Constipation 8. Weakness 9. Aortic aneurysm 10. Enterococcus UTI Plan: Will see if patient can have some pain medication today. According to Dr. Mckeon, she will be a hospice patient. This inpt stay is expected to cross 2 MNs from start of care Yes (pelvic mass) (Heather Golden) Assessment/Plan Problem List 1. Anemia Status: Acute 2. Lymphoma 3. Ovarian mass 4. COPD (chronic obstructive pulmonary disease) 5. Nausea 6. Cachexia 7. Constipation 8. Weakness 9. Aortic aneurysm 10. Enterococcus UTI Plan: Pt seen and examined. WIll give trial of Fentanyl patch for pain. (Mike LAMBERT,Ryann Carpenter) at 0818
[2017-04-23 11:00] VITALS: BP 116/49
[2017-04-23 15:51] VITALS: BP 116/49
[2017-04-23 19:52] VITALS: BP 100/49
[2017-04-23 20:15] VITALS: BP 100/49
[2017-04-24 04:02] VITALS: BP 102/53
[2017-04-24 08:15] VITALS: BP 118/54
--- NOTE | 2017-04-24 08:20 | ACUTE CARE PROGRESS NOTE (QUA) ---
Progress Notes Subjective Date 04/24/17 Time 0817 Note Pt states she is weak this am. She slept off and on. Her pain is at a 7 out of 10. She tried to eat a few bites this am. Objective Findings Last VS-Temp:98.0 B/P:118/54 Pulse:58 Resp:24 SaO2:100 OXYGEN Last weight lbs:89 oz:8 K.597 Method:Bed Scales Exam General appearance: alert, awake Cardiovascular: regular rate & rhythm Respiratory: diminished breath sounds ABD: non-distended, normal bowel sounds, no rebound, soft, no guarding, ttp in the LUQ Extremities: no peripheral edema Assessment/Plan Problem List 1. Anemia Status: Acute 2. Lymphoma 3. Ovarian mass 4. COPD (chronic obstructive pulmonary disease) 5. Nausea 6. Cachexia 7. Constipation 8. Weakness 9. Aortic aneurysm 10. Enterococcus UTI Plan: Patient is stable to be discharged back to [place] and she will have hospice. This inpt stay is expected to cross 2 MNs from start of care No (pelvic mass) (Heather Golden) Assessment/Plan Problem List 1. Anemia Status: Acute 2. Lymphoma 3. Ovarian mass 4. COPD (chronic obstructive pulmonary disease) 5. Nausea 6. Cachexia 7. Constipation 8. Weakness 9. Aortic aneurysm 10. Enterococcus UTI Plan: Pt seen and examined. Concur with plan for discharge with Hospice. (Mike LAMBERT,Ryann Carpenter) at 0819
[2017-04-24] MEDS ORDERED: FENTANYL 225 MCG/EAC TD (08:26)
[2017-04-24] MEDS ORDERED: MORPHINE SUL20 MG/ML NG (08:27)
[2017-04-24 08:40] VITALS: BP 118/54
--- NOTE | 2017-04-24 09:39 | DISCHARGE SUMMARY STANDARD ---
Discharge Summary (FCA2) Date of admission: 04/19/17 Date of discharge: 04/24/17 Problem List: 1. Anemia 2. Lymphoma 3. Ovarian mass 4. COPD (chronic obstructive pulmonary disease) 5. Nausea 6. Cachexia 7. Constipation 8. Weakness 9. Aortic aneurysm 10. Enterococcus UTI History of present illness: Mrs. Mclean is a 77-year-old white female with a number of health issues ongoing. She presented to the emergency room with weakness and abdominal pain. She was found to have a low H and H. Her CT has also been revealing for several issues including a retroperitoneal mass which is suggestive of lymphoma. This was discovered on this admission. She also has a 4 cm AAA. There is also a 9 cm pelvic cyst present. She has severe chronic lung disease. She has had atrial fibrillation. She was admitted for further evaluation and treatment. Exam on admission: General appearance: alert, thin, cachetic Eyes: anicteric, PERRLA ENT: mucous membranes moist Neck: no JVD Cardiovascular: regular rate & rhythm, murmur (systolic 2/6 aortic) Respiratory: aerating well, no respiratory distress ABD: soft, no tenderness, no guarding, scaphoid Extremities: no peripheral edema Musculoskeletal: equal muscle strength, muscle wasting Skin: dry, intact (sallow) Neuro: alert, speech clear (speaks slowly) Hospital Course: The patient was transfused and Dr. Urena was consulted. He felt she had an ovarian mass and was likely looking at a surgical procedure, however she is poor surgical candidate due to her severe COPD. Oncology was consulted, however Dr. Rodriguez was out of town. She was found to have an Enterococcus UTI and was started on abx. She continued with abdominal pain and dyspnea. She became dyspneic just moving about in the bed. CEA and CA 125 that were ordered by Dr. Urena were normal. Dr. Mckeon spoke at some length with the patient regarding her diagnoses. He explained that she is a very high surgical risk due to here severe lung disease. He also discussed the option of Hospice referral. The patient ultimately decided to go back to [place] with hospice. She will be discharged today. Discharge medications: Stop taking the following medications: Cyanocobalamin (Vitamin B-12) (Vitamin B12) 2,500 MCG TABLET ORAL DAILY PAROXETINE HCL (Paxil) 10 MG TABLET ORAL EVERY 48 HOURS Guaifenesin (Mucus ER) 600 MG TAB.ER.12H ORAL TWICE A DAY Aspirin (Children's Aspirin) 81 MG TAB.CHEW ORAL DAILY Melatonin (Melatonin) 1 MG TABLET.ER ORAL AT BEDTIME NIGHTLY Continue taking these medications: Acetaminophen (Acetaminophen Extra Strength) 500 MG TABLET 500 MILLIGRAM ORAL EVERY 6 HOURS NEEDED as needed for PAIN Roflumilast (Daliresp) 500 MCG TABLET 500 MICROGRAM ORAL DAILY Apixaban (Eliquis) 5 MG TABLET 5 MILLIGRAM ORAL TWICE A DAY ALBUTEROL (Proventil Hfa Inhaler) 90 MCG/PUFF INH 1-2 PUFF INHALATION EVERY 4 HOURS NEEDED Senna Pod (Senna Laxative) 8.6 MG TABLET 2 TABLET ORAL AT BEDTIME NIGHTLY Tiotropium [place] (Spiriva) 18 MCG CAP.W.DEV 2 PUFF INHALATION DAILY Budesonide (Pulmicort) 0.5 MG/2 ML AMPUL.NEB 0.5 MILLIGRAM IN VITRO TWICE A DAY Formoterol Fumarate (Perforomist) 20 MCG/2 ML VIAL.NEB 20 MICROGRAM INHALATION TWICE A DAY DIGOXIN (Digox) 125 MCG TABLET 0.125 MILLIGRAM ORAL DAILY Qty = 30 DILTIAZEM HCL (Diltiazem 12HR ER) 120 MG CAP.ER.12H 120 MILLIGRAM ORAL TWICE A DAY Qty = 60 Guaifenesin/Dextromethorphan (Robitussin Cough-Chest Dm Liq) 237 ML LIQUID 10 MILLILITER ORAL EVERY 6 HOURS NEEDED as needed for COUGH Qty = 240 Ondansetron (Zofran 4MG Odt) 4 MG TAB.RAPDIS 4 MILLIGRAM ORAL EVERY 6 HOURS NEEDED as needed for NAUSEA AND VOMITING Qty = 6 POLYETHYLENE GLYCOL (Miralax) 17 GM POWD.PACK 17 GRAM ORAL DAILY NITROGLYCERIN (Nitrostat) 0.4 MG TAB.SUBL 0.4 MILLIGRAM SUBLINGUAL EVERY FIVE MINUTES NEEDED as needed for CP Levalbuterol Hcl (Xopenex 0.63MG NEB) 0.63 MG/3 ML VIAL.NEB 0.63 MILLIGRAM IN VITRO THREE TIMES A DAY Pantoprazole Sodium (Protonix 40MG TAB) 40 MG TABLET.DR 40 MILLIGRAM ORAL DAILY Start taking the following new medications: Fentanyl (Fentanyl 25MCG Patch) 1 EACH PATCH.[id number] 25 MICROGRAM TRANSDERM Q72H Qty = 4 No Refills Morphine Sulfate (Morphine Sulf Oral Conc) 100 MG/5 ML SOLUTION 10 MILLIGRAM NASOGASTRIC TUBE EVERY 4 HOURS NEEDED as needed for BREAKTHROUGH MOD TO SEV PAIN Qty = 60 No Refills Disposition: F/U with: Ryann Mckeon MD Follow up: 7 days at [place] Comments, Specifics r/t O2, Equipment, Antibiotics, etc: Needs ambulance transport Care Management Consult for: TRANSPORTATION Activity: Limited activity Diet: Regular Discharge to: [facility] Specify Nsg Home: [facility] at 1011
[2017-04-24 12:15] VITALS: BP 118/54
== END 2017-04-24 11:10 | disposition hospice, inpatient (51) | DRG 840 ==
LOC: ER 10:20 → 2ND 12:38
PROVIDERS: Emergency Medicine; Family Medicine
DX: C85.93 Non-Hodgkin lymphoma, unspecified, intra-abdominal lymph nodes (principal); E43 Unspecified severe protein-calorie malnutrition; N39.0 Urinary tract infection, site not specified; J44.9 Chronic obstructive pulmonary disease, unspecified; R64 Cachexia; Z68.1 Body mass index [BMI] 19.9 or less, adult; N83.9 Noninflammatory disorder of ovary, fallopian tube and broad ligament, unspecified; B95.2 Enterococcus as the cause of diseases classified elsewhere; I71.4 Abdominal aortic aneurysm, without rupture
CPT/HCPCS: G0328; J2405; P9016; Q9967